=== PATIENT | male | born 1955 | race Caucasian/White ===

== ENCOUNTER → 2018-09-08 13:35 | Outpatient (CLI) | payer MEDICARE, SELFPAY ==
--- NOTE | 2018-09-08 13:46 | BI_ITS ---
MAMMOGRAPHY - BILATERAL DIAGNOSTIC REASON FOR EXAM: Male, [address] scan of the chest. PERTINENT HISTORY: Non-contributory. TECHNIQUE: Digital bilateral breast mat (3D mammographic acquisition) in the CC and MLO projections. 2-D mediolateral oblique (MLO) and craniocaudad (CC) views of both breasts were obtained. CAD: Full Field Digital Mammography with Computer Added Detection was performed. COMPARISON: None. Baseline examination. FINDINGS: Breast Composition: The breasts are almost entirely fatty. There are no dominant masses or suspicious calcifications. There is a 1.4 cm x 1.2 cm lymph node in the axillary region of the right breast. Correlation with ultrasound is recommended. No other significant abnormalities are identified. BI/DIAG MAMM W/CAD, BILAT IMPRESSION: 1.4 cm x 1.2 cm right axillary lymph node. Correlation with the findings on the recent CT scan of the chest and follow-up ultrasound is recommended. ASSESSMENT CATEGORY: BIRADS Category 0: Incomplete. Need additional imaging evaluation. A letter regarding these results will be sent to the patient by the facility within 30 days. Approximately 10% of breast cancers are not detected by mammography. A normal mammogram should not delay biopsy of a clinically suspicious abnormality. Electronically Signed: Edil Rosenthal, at 15:11 EDT , Service support ,
== END ==
DX: R92.8 Other abnormal and inconclusive findings on diagnostic imaging of breast (principal)
CPT/HCPCS: 77062; 77066; G0279

== ENCOUNTER → 2018-09-24 12:22 | Outpatient (CLI) | payer MEDICARE, OTHER, SELFPAY ==
--- NOTE | 2018-09-24 12:27 | US_ITS ---
STUDY: ULTRASOUND BREAST - RIGHT REASON FOR EXAM: Male, 63 years old. Abnormal mammogram TECHNIQUE: Axial and longitudinal images of the RIGHT breast were performed with a high resolution ultrasound transducer. COMPARISON: Mammogram from 09/08/2018 FINDINGS: RIGHT Breast: Ultrasound shows a right axillary hypoechoic well-defined nodule measuring 2.9 x 1.3 x 0.8 cm. There is no evidence of vascularity or shadowing. Findings are suggestive of a lymph node which is consistent with findings on mammogram. No sonographic evidence of architectural distortion or suspicious solid lesion. US/Breast Limited Unilateral IMPRESSION: Well-defined 2.9 x 1.3 x 0.8 cm likely right axillary lymph node ASSESSMENT CATEGORY: BIRADS Category 2: Benign. A letter regarding these results will be sent to the patient by the facility within 30 days. Electronically Signed: Carlos Lincoln MD at 13:18 EDT , Service support ,
== END ==
DX: R92.8 Other abnormal and inconclusive findings on diagnostic imaging of breast (principal)
CPT/HCPCS: 76642

== ENCOUNTER 2020-11-12 21:07 | Inpatient (IN) | payer OTHER, MEDICARE, SELFPAY ==
[2020-11-12 21:08] VITALS: BP 148/84; PULSE 94; RESP 24; TEMP 36.8; O2SAT 92; BMI 41.8
[2020-11-12 22:08] VITALS: RESP 22; O2SAT 88; O2SAT 89
[2020-11-12 22:11] VITALS: RESP 20; O2SAT 92
--- NOTE | 2020-11-12 22:20 | EKG12_ITS ---
Test Reason : SOB Blood Pressure : / mmHG Vent. Rate : 072 BPM Atrial Rate : 072 BPM P-R Int : 200 ms QRS Dur : 098 ms QT Int : 372 ms P-R-T Axes : 053 -54 092 degrees QTc Int : 407 ms Normal sinus rhythm Left anterior fascicular block Left ventricular hypertrophy with repolarization abnormality Inferior infarct , age undetermined Anteroseptal infarct , age undetermined Abnormal ECG Confirmed by TIO GAMBOA, BRETT ([id number]), photography editor JADE BARRIENTOS ([id number]) on 11/15/2020 9:56:47 AM Referred By: JAJA Confirmed By:BRETT KINSEY MD
[2020-11-12] MEDS: predniSONE 20 MG Tablet 60 MG PO (22:27)
[2020-11-12] MEDS: Albuterol 2.5 MG/3 ML VIAL.NEB. INHALATION ×3 (22:37→22:38)
[2020-11-12] MEDS: Ipratropium/Albuterol Sulfate 3 ML AMPUL.NEB INHALATION (22:37)
[2020-11-12 22:39] VITALS: PULSE 73; RESP 18
[2020-11-12 22:43] LABS: Absolute Lymphocyte Count 2.51 X10^3/uL (0.83-4.51); Absolute Neutrophil Count 10.4 X10^3/uL (2.0-7.7); Basophil% 0.7 % (0-1); Eosinophil# 0.46 X10^3/uL; Eosinophils% 3.1 % (0-5); Hematocrit 48.6 % (40-54); Hemoglobin 16.5 g/dL (13.0-16.5); Lymphocyte # 2.51 X10^3/ul (0.83-4.51); Lymphocyte % 16.8 % (19-41); Mean Corpuscular Hgb 29.7 pg (27.0-32.0); Mean Corpuscular Volume 87.4 fL (80-94); Mean Platelet Vol. 10.5 fl (6.2-12.0); Monocyte# 1.36 X10^3/uL; Monocyte% 9.1 % (0-10); NRBC Flagged by Analyzer 0 % (0-5); Neutrophil # 10.43 X10^3/uL (2.7-7.7); Platelet Count 210 K/mm3 (150-450); RBC Distribution Width CV 13.7 % (11.6-14.6); Red Blood Count 5.56 M/mm3 (4.6-6.2); White Blood Count 14.9 K/mm3 (4.4-11.0)
[2020-11-12 23:03] LABS: Anion Gap 9 (5-15); BUN 25 mg/dL (7-18); BUN/Creat Ratio 20.8 RATIO (10-20); Calcium,Total 9.7 mg/dL (8.5-10.1); Chloride 100 mmol/L (98-107); EST Glomerular Filtration Rate 65 mL/min (>60); Est Glom Filt Rate - Afr Amer 79 mL/min (>60); Estimated Creatinine Clearance 67.11 ml/min; Glucose 155 mg/dL (74-106); Potassium 3.9 mmol/L (3.5-5.1); Sodium Level 138 mmol/L (136-145)
--- NOTE | 2020-11-12 23:12 | RAD_ITS ---
STUDY: X-RAY CHEST REASON FOR EXAM: Male, 65 years old. Shortness of breath. TECHNIQUE: PA and lateral views of the chest. COMPARISON: 06/16/2016. FINDINGS: The lungs are well expanded. There is no new infiltrate or mass. There is no demonstrated pleural abnormality. Sternal cerclage wires are present from a prior sternotomy. Heart is normal in size. Normal mediastinum. Mild hilar prominence. Normal visualized aortic arch and descending thoracic aorta. Mild degenerative changes of the thoracic spine. Normal visualized ribs, clavicles, and shoulders. There is no demonstrated abnormality of the visualized soft tissue structures of the upper abdomen. RAD/Chest PA and Lateral IMPRESSION: No acute cardiopulmonary disease or interval change. Electronically Signed: Brett Field DO at 23:23 EDT Tel [phone], Service support ,
[2020-11-13] VITALS (15 sets, daily range): BP systolic 114–161; BP diastolic 75–99; PULSE 61–93; RESP 18–23; TEMP 36.6–37.3; O2SAT 92–95; BMI 43.7
--- NOTE | 2020-11-13 00:02 | EDS_ITS ---
HPI History of Present Illness Chief Complaint: Shortness of Breath Narrative Narrative: Patient presenting for evaluation secondary to shortness of breath. Patient has an underlying history of COPD. Patient states that over the course the last 3 to 4 days he has been having worsening dyspnea but specifically today it became significantly worse.'s been associated with wheezing and a mild cough. He does describe some chest tightness associated with it. No fevers. No real productivity to the patient's cough. Review of systems otherwise negative. [facility] Medical History Asthma COPD (chronic obstructive pulmonary disease) Coronary artery disease CPAP (continuous positive airway pressure) dependence Diabetes History of colitis Hypertension Myocardial infarct Sleep apnea Home Medications albuterol sulfate [Proair Hfa (SP)Vent Pts] 1 puff INHALATION BID PRN 10/28/14 [History Last Taken Unknown] atorvastatin 80 mg PO QHS 10/28/14 [History Last Taken 11/12/20] clopidogrel 75 mg PO DAILY 10/28/14 [History Last Taken 11/12/20] insulin glargine [Lantus (BKC)] 60 units SUBCUT BID 10/28/14 [History Last Taken 11/12/20] lisinopril 40 mg PO DAILY 10/28/14 [History Last Taken 11/12/20] metformin 1,000 mg PO BIDCM 10/28/14 [History Last Taken 11/12/20] tiotropium bromide [Spiriva 18 MCG] 1 puff INHALATION DAILY 10/28/14 [History Last Taken 11/12/20] aspirin 81 mg PO DAILY 11/12/20 [History Last Taken 11/12/20] budesonide-formoterol [Symbicort] 2 puff INHALATION BID 11/12/20 [History Last T aken 11/12/20] carvedilol 6.25 mg PO BID 11/12/20 [History Last Taken 11/12/20] chlorthalidone 12.5 mg PO DAILY 11/12/20 [History Last Taken 11/12/20] cholecalciferol (vitamin D3) [Vitamin D3] 50 mcg PO DAILY 11/12/20 [History Last Taken 11/12/20] gabapentin 300 mg PO BID 11/12/20 [History Last Taken 11/12/20] liraglutide 18 mg SUBCUT DAILY 11/12/20 [History Last Taken 11/12/20] Allergy/AdvReac Type Severity Reaction Status Date / Time No Known Allergies Allergy Verified 11/12/20 21:11 Surgical History History of colostomy History of colostomy reversal Hx of CABG Social History Smoking Status: Former smoker ROS ROS ED Constitutional Constitutional ED: Denies chills or fever(s) ENT ENT ED: Denies rhinorrhea Cardiovascular Cardiovascular: Denies chest pain Respiratory/Chest Respiratory/Chest: Reports cough and dyspnea Gastrointestinal Gastrointestinal: Denies abdominal pain, diarrhea, nausea or vomiting Genitourinary Genitourinary ED: Denies dysuria or hematuria Musculoskeletal Musculoskeletal: Denies back pain Integumentary Denies rash Neurologic Neurologic: Denies paresthesias or weakness Psychiatric Psychiatric: Denies depression Endocrine Endocrinology: Denies fatigue Allergic/Immunologic Allergic/Immunologic ED: Denies urticaria EXAM Physical Exam Const Vital Signs: 11/12/20 21:08 11/12/20 22:08 11/12/20 22:11 Temperature 98.2 F Temperature Source Temporal Pulse Rate 94 Respiratory Rate 24 H 22 H 20 H Respiratory Effort Short of Breath Respiratory Pattern Tachypnea Blood Pressure 148/84 H Blood Pressure Mean 105 Pulse Ox 92 88 92 Oxygen Delivery Method Room Air Room Air Nasal Cannula Oxygen Flow Rate (L/min) 2 11/12/20 22:39 11/13/20 00:00 Temperature 98.7 F Temperature Source Oral Pulse Rate 73 93 Respiratory Rate 18 23 H Respiratory Effort Respiratory Pattern Tachypnea Blood Pressure 114/91 H Blood Pressure Mean 98 Pulse Ox 95 Oxygen Delivery Method Nasal Cannula Oxygen Flow Rate (L/min) 2 Positive well nourished, well developed and obese Constitutional Narrative: Mildly dyspneic but not in acute distress General Appearance ED: well developed and NAD Nutritional Appearance: obese HEENT Reports moist mucous membranes Negative for trauma or tenderness Eyes EOMs intact bilaterally Neck no lymphadenopathy, supple and no JVD Chest Wall inspection of chest normal Resp normal respiratory effort Resp Narrative: Slightly prolonged expiratory phase, no evidence of retractions Auscultation: wheezes Cardio regular rate, regular rhythm, no murmurs and peripheral pulses 2+ throughout GI normal to inspection, nondistended, normoactive bowel sounds, non-tender and no masses Palpation: soft Back/Spine normal to inspection Extremity normal to inspection General Extremety ED: Negative for tenderness Neuro oriented x3 and no sensory deficits noted Sensorium / Orientation: alert Motor Exam: strength 5/5 throughout Psych mental status grossly normal Skin no rashes or lesions noted MDM MDM MDM Narrative Medical decision making narrative: Patient presented secondary to shortness of breath. He was given prednisone and breathing treatments in the emergency department. Chest x-ray by my personal review was negative. Patient has a leukocytosis of 15,000, negative troponin. Patient did have some modest improvement with breathing treatments but has hypoxia on room air and is not typically on supplemental oxygen. I believe that the patient requires admission at this point. Patient will be admitted under the hospitalist. Lab Data Labs: Laboratory Results - last 24 hr 11/12/20 11/12/20 22:32 22:32 WBC 14.9 H RBC 5.56 Hgb 16.5 Hct 48.6 MCV 87.4 MCH 29.7 MCHC 34.0 RDW Std Deviation 44.0 H RDW Coeff of Cornelio 13.7 Plt Count 210 MPV 10.5 Immature Gran % (Auto) 0.300 Neut % (Auto) 70.0 Lymph % (Auto) 16.8 L [place] % (Auto) 9.1 Eos % (Auto) 3.1 Baso % (Auto) 0.7 Absolute Neuts (auto) 10.4 H Absolute Lymphs (auto) 2.51 Nucleated RBC % 0 Sodium 138 Potassium 3.9 Chloride 100 Carbon Dioxide 29.0 Anion Gap 9 BUN 25 H Creatinine 1.20 Estim Creat Clear Calc 67.11 Est GFR (MDRD) Af Amer 79 Est GFR (MDRD) Non-Af 65 BUN/Creatinine Ratio 20.8 H Glucose 155 H Calcium 9.7 Troponin I < 0.015 Radiography Chest X-Ray - ED: Read by ED Physician and No Infiltrates Diagnostic Testing: Radiology Impression Chest X-Ray 11/12/20 23:12 IMPRESSION: No acute cardiopulmonary disease or interval change. Electronically Signed: Brett Field DO at 23:23 EDT Tel [phone], Service support , EKG Initial EKG: Attestation: I personally reviewed and interpreted this EKG as follows: (Sinus rhythm 72 with mild first-degree AV block MO interval is 200, anterior Q waves are noted, LVH is noted, inferior Q waves are also noted no evidence of ST elevations.) Discharge Plan Dx/Rx/DC Orders Clinical Impression: COPD exacerbation, Hypoxia Disposition Disposition: Acute Care Hospital [facility] Discharge Date/Time: 11/13/20 00:30
--- NOTE | 2020-11-13 00:17 | HP.PCM_ITS ---
Documented by User: CHALO Combs 11/13/20 00:28 HPI - General HPI Narrative KINGS CEBALLOS, is a 65 M who presents with increasing shortness of breath over the past 12 hours. Patient states that he noticed this morning that he was short of breath and it has only worsened throughout the day. Patient states that he has quit smoking cigarettes but continues to smoke marijuana daily. Patient typically does not use supplemental oxygen however patient needs 2L O2 per nasal cannula to maintain oxygen saturations above 90%. Walking pulse ox in ER was between 80 and 90% on room air. Patient also denies using his BiPAP at home as prescribed due to being uncomfortable wearing the mask while sleeping. [facility] Medical History Asthma COPD (chronic obstructive pulmonary disease) Coronary artery disease CPAP (continuous positive airway pressure) dependence Diabetes History of colitis Hypertension Myocardial infarct Sleep apnea Home Medications albuterol sulfate [Proair Hfa (SP)Vent Pts] 1 puff INHALATION BID PRN 10/28/14 [History Last Taken Unknown] albuterol sulfate [Proventil Hfa] 6.7 g IH DAILY 10/28/14 [History Last Taken Unknown] atorvastatin 80 mg PO QHS 10/28/14 [History Last Taken Unknown] clopidogrel 75 mg PO DAILY 10/28/14 [History Last Taken Unknown] insulin glargine [Lantus (BKC)] 60 units SUBCUT BID 10/28/14 [History Last Taken Unknown] lisinopril 40 mg PO DAILY 10/28/14 [History Last Taken Unknown] metformin 1,000 mg PO BIDCM 10/28/14 [History Last Taken Unknown] tiotropium bromide [Spiriva 18 MCG] 1 puff INHALATION DAILY 10/28/14 [History Last Taken Unknown] aspirin 81 mg PO DAILY 11/12/20 [History Last Taken Unknown] budesonide-formoterol [Symbicort] 2 puff INHALATION BID 11/12/20 [History Last Taken Unknown] carvedilol 6.25 mg PO BID 11/12/20 [History Last Taken Unknown] chlorthalidone 12.5 mg PO DAILY 11/12/20 [History Last Taken Unknown] cholecalciferol (vitamin D3) [Vitamin D3] 50 mcg PO DAILY 11/12/20 [History Last Taken Unknown] gabapentin 300 mg PO BID 11/12/20 [History Last Taken Unknown] liraglutide 18 mg SUBCUT DAILY 11/12/20 [History Last Taken Unknown] Allergy/AdvReac Type Severity Reaction Status Date / Time No Known Allergies Allergy Verified 11/12/20 21:11 Surgical History History of colostomy History of colostomy reversal Hx of CABG Social History Smoking Status: Former smoker ROS Constitutional Constitutional: Denies anorexia, chills, fatigue, fever(s) or weakness Cardiovascular Cardiovascular: Denies chest pain, edema or palpitations Respiratory/Chest Respiratory/Chest: Reports shortness of breath at rest, shortness of breath with exertion, tachypnea and wheezing; Denies cough Gastrointestinal Gastrointestinal: Denies abdominal pain, constipation, diarrhea, nausea or vom iting Genitourinary Genitourinary: Denies dysuria Musculoskeletal Musculoskeletal: Denies back pain, extremity pain, joint pain or joint stiffness Integumentary Integumentary: Denies dry skin Neurologic Neurologic: Denies abnormal gait, abnormal speech, confusion or dizziness Psychiatric Psychiatric: Denies anxiety or depression Endocrine Endocrinology: Denies change in body appearance Hematologic/Lymphatic Hematologic/Lymphatic: Denies easy bleeding or easy bruising Vital Signs Vital Signs Vital Signs: 11/12/20 21:08 11/12/20 22:08 11/12/20 22:11 Temperature 98.2 F Temperature Source Temporal Pulse Rate 94 Respiratory Rate 24 H 22 H 20 H Respiratory Effort Short of Breath Respiratory Pattern Tachypnea Blood Pressure 148/84 H Blood Pressure Mean 105 Pulse Ox 92 88 92 Oxygen Delivery Method Room Air Room Air Nasal Cannula Oxygen Flow Rate (L/min) 2 11/12/20 22:39 11/13/20 00:00 Temperature 98.7 F Temperature Source Oral Pulse Rate 73 93 Respiratory Rate 18 23 H Respiratory Effort Respiratory Pattern Tachypnea Blood Pressure 114/91 H Blood Pressure Mean 98 Pulse Ox 95 Oxygen Delivery Method Nasal Cannula Oxygen Flow Rate (L/min) 2 Weight Weight: 300 lb Body Mass Index (BMI) 41.8 Physical Exam Const alert and oriented x3 General Appearance: cooperative HEENT normocephalic and head/scalp atraumatic Eyes PERRL Neck supple, no JVD and thyroid normal General: trachea midline Lymph Lymphatic: no lymphadenopathy noted Resp Effort and Inspection: able to speak in complete sentences and tachypneic Auscultation: wheezes scattered wheezes and throughout Cardio regular rate, regular rhythm, S1 normal heart sound and S2 normal heart sound GI normal to inspection, nondistended, normoactive bowel sounds, soft to palpation and non-tender Extremity normal capillary refill and no clubbing, cyanosis or edema Skin General Skin Exam: no breakdown and turgor normal Lesions: no lesions Rashes: no rashes Neuro CN's II-XII intact bilaterally Psych thought process normal, cooperative and affect normal Appearance: appropriate Results Lab / Micro Data Result Diagrams: 11/12/20 22:32 11/12/20 22:32 Labs: Laboratory Results - last 24 hr 11/12/20 11/12/20 22:32 22:32 WBC 14.9 H RBC 5.56 Hgb 16.5 Hct 48.6 MCV 87.4 MCH 29.7 MCHC 34.0 RDW Std Deviation 44.0 H RDW Coeff of Cornelio 13.7 Plt Count 210 MPV 10.5 Immature Gran % (Auto) 0.300 Neut % (Auto) 70.0 Lymph % (Auto) 16.8 L [place] % (Auto) 9.1 Eos % (Auto) 3.1 Baso % (Auto) 0.7 Absolute Neuts (auto) 10.4 H Absolute Lymphs (auto) 2.51 Nucleated RBC % 0 Sodium 138 Potassium 3.9 Chloride 100 Carbon Dioxide 29.0 Anion Gap 9 BUN 25 H Creatinine 1.20 Estim Creat Clear Calc 67.11 Est GFR (MDRD) Af Amer 79 Est GFR (MDRD) Non-Af 65 BUN/Creatinine Ratio 20.8 H Glucose 155 H Calcium 9.7 Troponin I < 0.015 Radiology Impression Chest X-Ray 11/12/20 23:12 IMPRESSION: No acute cardiopulmonary disease or interval change. Electronically Signed: Brett Field DO at 23:23 EDT Tel [phone], Service support , Assessment & Plan Assessment/Plan (1) COPD exacerbation: PLAN: 1. COPD exacerbation -Admit to [facility] with telemetry -PT and OT to eval and treat -Solu-Medrol every 8 hour IV, patient received p.o. prednisone in ER -Scheduled DuoNeb nebulizer treatments ordered along with as needed albuterol, patient received DuoNeb x1 and albuterol x1 in ER -Encourage incentive spirometry -Vital signs per protocol -Mucinex 1200 mg twice daily ordered -BiPAP ordered, patient denies use at home due to discomfort, education provided and encouraged use of BiPAP 2. Hypertension -Vital signs per protocol, trend BP and heart rate -Continue lisinopril, carvedilol, chlorthalidone. 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 Hyperlipidemia Continue atorvastatin 5. Marijuana use -Encourage patient to stop smoking marijuana as this can contribute to COPD exacerbations DVT prophylaxis-subcu Lovenox This patient was seen by KATIE CombsC under the supervision of Dr. Galloway. Documented by User: Dr. Shakir Galloway MD 11/13/20 00:31 HPI - General General Date of Admission: 11/13/20 [facility] Medical History Asthma COPD (chronic obstructive pulmonary disease) Coronary artery disease CPAP (continuous positive airway pressure) dependence Diabetes History of colitis Hypertension Myocardial infarct Sleep apnea Home Medications albuterol sulfate [Proair Hfa (SP)Vent Pts] 1 puff INHALATION BID PRN 10/28/14 [History Last Taken Unknown] albuterol sulfate [Proventil Hfa] 6.7 g IH DAILY 10/28/14 [History Last Taken Unknown] atorvastatin 80 mg PO QHS 10/28/14 [History Last Taken Unknown] clopidogrel 75 mg PO DAILY 10/28/14 [History Last Taken Unknown] insulin glargine [Lantus (BKC)] 60 units SUBCUT BID 10/28/14 [History Last Taken Unknown] lisinopril 40 mg PO DAILY 10/28/14 [History Last Taken Unknown] metformin 1,000 mg PO BIDCM 10/28/14 [History Last Taken Unknown] tiotropium bromide [Spiriva 18 MCG] 1 puff INHALATION DAILY 10/28/14 [History Last Taken Unknown] aspirin 81 mg PO DAILY 11/12/20 [History Last Taken Unknown] budesonide-formoterol [Symbicort] 2 puff INHALATION BID 11/12/20 [History Last Taken Unknown] carvedilol 6.25 mg PO BID 11/12/20 [History Last Taken Unknown] chlorthalidone 12.5 mg PO DAILY 11/12/20 [History Last Taken Unknown] cholecalciferol (vitamin D3) [Vitamin D3] 50 mcg PO DAILY 11/12/20 [History Last Taken Unknown] gabapentin 300 mg PO BID 11/12/20 [History Last Taken Unknown] liraglutide 18 mg SUBCUT DAILY 11/12/20 [History Last Taken Unknown] Allergy/AdvReac Type Severity Reaction Status Date / Time No Known Allergies Allergy Verified 11/12/20 21:11 Surgical History History of colostomy History of colostomy reversal Hx of CABG Social History Smoking Status: Former smoker Results Lab / Micro Data Result Diagrams: 11/12/20 22:32 11/12/20 22:32 Charges/Coding Addendum Addendum: I independently evaluated this patient and agree with above assessment and plan.
[2020-11-13] MEDS: Acetaminophen 325 MG Tablet 650 MG PO (01:31)
[2020-11-13] MEDS: Ipratropium/Albuterol Sulfate 3 ML AMPUL.NEB INHALATION ×3 (02:42→11:16)
[2020-11-13 02:51] LABS: Bedside Glucose 134 mg/dL (70-110)
--- NOTE | 2020-11-13 03:33 | CPS ---
Pt refuses PAP at this time
[2020-11-13] MEDS: 0.9% Saline Lock 10 ML Syringe IV ×2 (06:36→14:46)
[2020-11-13] MEDS: Insulin Lispro 100 UNIT/ML INSULN.PEN SC ×2 (06:42→12:38)
[2020-11-13 06:46] LABS: Bedside Glucose 241 mg/dL (70-110)
[2020-11-13 06:58] LABS: Absolute Neutrophil Count 11.5 X10^3/uL (2.0-7.7); Basophil# 0.05 X10^3/uL; Basophil% 0.4 % (0-1); Eosinophil# 0.01 X10^3/uL; Eosinophils% 0.1 % (0-5); Hematocrit 47.6 % (40-54); Lymphocyte % 13.7 % (19-41); Mean Corp Hgb Conc 33.6 g/dL (32-36); Mean Corpuscular Volume 89.3 fL (80-94); Monocyte# 0.27 X10^3/uL; NRBC Flagged by Analyzer 0 % (0-5); Neutrophil # 11.52 X10^3/uL (2.7-7.7); Neutrophil % 83.2 % (47-70); Platelet Count 182 K/mm3 (150-450); RBC Distribution Width CV 13.5 % (11.6-14.6); RBC Distribution Width SD 44.1 fl (35.1-43.9); Red Blood Count 5.33 M/mm3 (4.6-6.2); White Blood Count 13.8 K/mm3 (4.4-11.0)
--- NOTE | 2020-11-13 07:01 | PN.HOSP_ITS ---
Subjective Subjective Patient seen and examined. He was admitted in the early hours of this morning for shortness of breath and is been managed for acute COPD exacerbation. He is feeling much better this morning and has no complaints. Review of systems otherwise negative. Objective Data Objective Data Vital Signs: Vital Signs Temp Pulse Resp BP Pulse Ox 98.4 F 61 19 H 161/82 H 94 11/13/20 06:32 11/13/20 06:32 11/13/20 06:32 11/13/20 06:32 11/13/20 06:32 Oxygen Flow Rate (L/min) 2 Oxygen Delivery Method Nasal Cannula Weight: 313 lb 4.43 oz Body Mass Index (BMI) 43.7 Intake & Output: Intake and Output for Last 24 Hours 11/11/20 11/12/20 11/13/20 23:59 23:59 23:59 Intake Total 350 / 350 Balance 350 / 350 Lab / Micro Data Result Diagrams: 11/13/20 06:25 11/12/20 22:32 Labs: Laboratory Results - last 24 hr 11/12/20 11/12/20 11/13/20 22:32 22:32 01:36 WBC 14.9 H RBC 5.56 Hgb 16.5 Hct 48.6 MCV 87.4 MCH 29.7 MCHC 34.0 RDW Std Deviation 44.0 H RDW Coeff of Cornelio 13.7 Plt Count 210 MPV 10.5 Immature Gran % (Auto) 0.300 Neut % (Auto) 70.0 Lymph % (Auto) 16.8 L [place] % (Auto) 9.1 Eos % (Auto) 3.1 Baso % (Auto) 0.7 Absolute Neuts (auto) 10.4 H Absolute Lymphs (auto) 2.51 Nucleated RBC % 0 Sodium 138 Potassium 3.9 Chloride 100 Carbon Dioxide 29.0 Anion Gap 9 BUN 25 H Creatinine 1.20 Estim Creat Clear Calc 67.11 Est GFR (MDRD) Af Amer 79 Est GFR (MDRD) Non-Af 65 BUN/Creatinine Ratio 20.8 H Glucose 155 H Calcium 9.7 Troponin I < 0.015 POC Glucose 134 H 11/13/20 11/13/20 06:25 06:35 WBC 13.8 H RBC 5.33 Hgb 16.0 Hct 47.6 MCV 89.3 MCH 30.0 MCHC 33.6 RDW Std Deviation 44.1 H RDW Coeff of Cornelio 13.5 Plt Count 182 MPV 11.0 Immature Gran % (Auto) 0.600 Neut % (Auto) 83.2 H Lymph % (Auto) 13.7 L [place] % (Auto) 2.0 Eos % (Auto) 0.1 Baso % (Auto) 0.4 Absolute Neuts (auto) 11.5 H Absolute Lymphs (auto) 1.90 Nucleated RBC % 0 Sodium Potassium Chloride Carbon Dioxide Anion Gap BUN Creatinine Estim Creat Clear Calc Est GFR (MDRD) Af Amer Est GFR (MDRD) Non-Af BUN/Creatinine Ratio Glucose Calcium Troponin I POC Glucose 241 H Radiography Diagnostic Testing: Radiology Impression Chest X-Ray 11/12/20 23:12 IMPRESSION: No acute cardiopulmonary disease or interval change. Electronically Signed: Brett Field DO at 23:23 EDT Tel [phone], Service support , Physical Exam Const alert, oriented x3 and no apparent distress Exam Limitations: no limitations HEENT head/scalp atraumatic and moist oral mucous membranes Head and Scalp: normocephalic Eyes PERRL, EOMs intact bilaterally and conjunctivae normal Neck no lymphadenopathy, supple and no JVD Resp Resp Narrative: diminished breath sounds bibasally, no wheezes or crackles. on 2L of oxygen by nasal canula Cardio regular rate, regular rhythm, S1 normal heart sound, S2 normal heart sound and no murmurs GI normal to inspection, nondistended, normoactive bowel sounds, soft to palpation, non-tender and non-distended Extremity normal to inspection, full ROM and no clubbing, cyanosis or edema Peripheral Pulses: Yes pulses 2+ throughout Neuro oriented x3 Sensorium / Orientation: awake and alert Psych affect normal Assessment & Plan Assessment/Plan (1) Hypoxia: (2) COPD exacerbation: PLAN: #Acute COPD exacerbation * on IV solumedrol [id number] * breathing treatments with bronchodilators. * mucinex 1200mg bid * BIPAP prn * #Hypertension: on lisinopril, carvedilol and chlorthalidone. #Diabetes mellitus with neuropathy * metformin and lantus sq * hold Januvia. ISS. Accuchecks ACHS * #Hyperlipidemia: on atorvastatin #Marijuana: counseled to quit. DVT prophylaxis: lovenox Charges/Coding Visit Charges Inpatient E&M: 30657 Subs Hosp L2
[2020-11-13 07:22] LABS: Anion Gap 7 (5-15); BUN 23 mg/dL (7-18); BUN/Creat Ratio 21.1 RATIO (10-20); Chloride 100 mmol/L (98-107); Creatinine, Serum 1.09 mg/dL (0.70-1.30); EST Glomerular Filtration Rate 73 mL/min (>60); Est Glom Filt Rate - Afr Amer 88 mL/min (>60); Estimated Creatinine Clearance 73.88 ml/min; Glucose 234 mg/dL (74-106); Potassium 4.6 mmol/L (3.5-5.1); Sodium Level 133 mmol/L (136-145)
[2020-11-13] MEDS: Carvedilol 6.25 MG Tablet PO (08:23)
[2020-11-13] MEDS: Aspirin 81 MG TAB.CHEW PO (08:23)
[2020-11-13] MEDS: metFORMIN HCl 1,000 MG Tablet 1000 MG PO (08:23)
[2020-11-13] MEDS: guaiFENesin 1,200 MG Tablet 1200 MG PO (08:24)
[2020-11-13] MEDS: Enoxaparin 40 MG/0.4 ML Syringe SC (08:24)
[2020-11-13] MEDS: Gabapentin 300 MG Capsule PO (08:26)
[2020-11-13] MEDS: Cholecalciferol (VIT D3) 25 MCG TABLET (1,000 UNITS) 50 MCG PO (08:26)
[2020-11-13] MEDS: Lisinopril 40 MG Tablet PO (08:27)
[2020-11-13] MEDS: Clopidogrel Bisulfate 75 MG Tablet PO (08:30)
--- NOTE | 2020-11-13 10:50 | CASEMGMT ---
RN GOLDY Face to Face with patient for initial transition planning/care coordination assessment. RN CM introduced self and role at [facility]. Patient sitting in chair, alert and oriented, at bedside. Patient willing to participate in assessment and is able to answer all questions appropriately. Care providers, pharmacy, and demographics verified. Patient wishes to discharge home, denies need for home health at this time. Patient states he has no further needs or concerns at this time. CM to follow for discharge planning needs that may arise. PCP: Latosha Bernstein [place] Specialists: [place] Preferred Pharmacy: [place], [facility] Insurance: [employer] [facility] Prescription Benefit: yes Living Will/HPOA: none LNOK: Living Arrangements: Nava lives with in single story home with 1 step to enter. Patient is independent at home. Transportation: self/ DME/HHC: Patient states he cane, cpap, and nebulizer at home. Patient denies previous HHC or SNF. Disposition Plan: Patient to discharge home with family support and follow-up plans in place. Jennifer VERNON, RN, CM
[2020-11-13 11:10] LABS: Bedside Glucose 399 mg/dL (70-110)
--- NOTE | 2020-11-13 11:17 | PCM.DC.SUM ---
Providers Date of Admission: 11/13/20 Primary Care Physician: [facility] Reason For Visit: COPD EXACERBATION Diagnosis Discharge Diagnosis (1) Hypoxia: Status: Acute Code(s): R09.02 - Hypoxemia (2) COPD exacerbation: Status: Chronic Code(s): J44.1 - Chronic obstructive pulmonary disease with (acute) exacerbation Medications at Discharge Home Medications Lantus Solostar U-100 Insulin 60 units SUBCUT BID 10/28/14 Spiriva with HandiHaler 1 puff INHALATION DAILY 10/28/14 albuterol sulfate [ProAir HFA] 1 puff INHALATION BID PRN 10/28/14 atorvastatin 80 mg PO QHS 10/28/14 clopidogrel 75 mg PO DAILY 10/28/14 lisinopril 40 mg PO DAILY 10/28/14 metformin 1,000 mg PO BIDCM 10/28/14 aspirin 81 mg PO DAILY 11/12/20 budesonide-formoterol [Symbicort] 2 puff INHALATION BID 11/12/20 carvedilol 6.25 mg PO BID 11/12/20 chlorthalidone 12.5 mg PO DAILY 11/12/20 cholecalciferol (vitamin D3) [Vitamin D3] 50 mcg PO DAILY 11/12/20 gabapentin 300 mg PO BID 11/12/20 liraglutide 18 mg SUBCUT DAILY 11/12/20 levofloxacin 500 mg PO DAILY #5 tab 11/13/20 prednisone 40 mg PO DAILY #10 tab 11/13/20 Hospital Course Operations None Procedures None Summary of Care Provided Minutes Spent on Discharge: 35 Hospital Course: Patient is a 65-year-old male with a past medical history as outlined which includes COPD and asthma was admitted with a complaint of worsening shortness of breath for 12 hours prior to admission. He needed 2 L of oxygen to maintain saturation above 90%. He denied smoking cigarettes but admitted smoking marijuana. In the ED, his walking pulse ox was between 80 and 90% on room air. He had also not been using his BiPAP at home because he said he was uncomfortable. He was admitted and managed for acute COPD exacerbation. CBC showed elevated WBC of 14.9 but was otherwise unremarkable and chemistry was otherwise unremarkable. Chest x-ray showed no acute cardiopulmonary process. Patient was started on IV Solu-Medrol and breathing treatments as well as antibiotics. Patient subsequently felt much better. Patient was counseled that it would be advisable for him to stay at least 1 more night to get more treatment but patient insisted on being discharged because he said he was in the process of buying a house and did not want to lose the house because he was in hospital. Patient was therefore discharged home on 11/13/2020 on 40 mg of p.o. prednisone x5 days as well as p.o. Levaquin for 5 days. He is to follow-up with his primary care doctor and was also counseled to be compliant with his BiPAP at home. Patient seen and examined prior to discharge. He felt much better and had no complaints. Shortness of breath had resolved. Review signs otherwise negative. Labs and vitals reviewed. Home medication reviewed and reconciled. Physical Exam Const alert, oriented x3 and no apparent distress General Appearance: cooperative Exam Limitations: no limitations HEENT normocephalic, head/scalp atraumatic and moist oral mucous membranes Eyes PERRL, EOMs intact bilaterally and conjunctivae normal Neck no lymphadenopathy, supple, no JVD and thyroid normal General: trachea midline Lymph Lymphatic: no lymphadenopathy noted Resp normal respiratory effort, no retractions, no use of accessory muscles and clear to auscultation bilaterally Resp Narrative: on room air. Effort and Inspection: able to speak in complete sentences and tachypneic Cardio regular rate, regular rhythm, S1 normal heart sound, S2 normal heart sound and no murmurs GI normal to inspection, nondistended, normoactive bowel sounds, soft to palpation, non-tender and non-distended Extremity normal to inspection, full ROM, normal capillary refill and no clubbing, cyanosis or edema Skin no rashes or lesions noted and no wounds General Skin Exam: no breakdown and turgor normal Lesions: no lesions Rashes: no rashes Neuro oriented x3 and CN's II-XII intact bilaterally Sensorium / Orientation: awake and alert Psych thought process normal, cooperative and affect normal Appearance: appropriate Weight / BMI Weight Weight: 313 lb 4.43 oz Body Mass Index (BMI) 43.7 ABG / Lab / Microbiology Data Result Diagrams: 11/13/20 06:25 11/13/20 06:25 Laboratory: Laboratory Results - last 24 hr 11/12/20 11/12/20 11/13/20 22:32 22:32 01:36 WBC 14.9 H RBC 5.56 Hgb 16.5 Hct 48.6 MCV 87.4 MCH 29.7 MCHC 34.0 RDW Std Deviation 44.0 H RDW Coeff of Cornelio 13.7 Plt Count 210 MPV 10.5 Immature Gran % (Auto) 0.300 Neut % (Auto) 70.0 Lymph % (Auto) 16.8 L [place] % (Auto) 9.1 Eos % (Auto) 3.1 Baso % (Auto) 0.7 Absolute Neuts (auto) 10.4 H Absolute Lymphs (auto) 2.51 Nucleated RBC % 0 Sodium 138 Potassium 3.9 Chloride 100 Carbon Dioxide 29.0 Anion Gap 9 BUN 25 H Creatinine 1.20 Estim Creat Clear Calc 67.11 Est GFR (MDRD) Af Amer 79 Est GFR (MDRD) Non-Af 65 BUN/Creatinine Ratio 20.8 H Glucose 155 H Calcium 9.7 Troponin I < 0.015 POC Glucose 134 H 11/13/20 11/13/20 11/13/20 06:25 06:25 06:35 WBC 13.8 H RBC 5.33 Hgb 16.0 Hct 47.6 MCV 89.3 MCH 30.0 MCHC 33.6 RDW Std Deviation 44.1 H RDW Coeff of Cornelio 13.5 Plt Count 182 MPV 11.0 Immature Gran % (Auto) 0.600 Neut % (Auto) 83.2 H Lymph % (Auto) 13.7 L Searcy % (Auto) 2.0 Eos % (Auto) 0.1 Baso % (Auto) 0.4 Absolute Neuts (auto) 11.5 H Absolute Lymphs (auto) 1.90 Nucleated RBC % 0 Sodium 133 L Potassium 4.6 Chloride 100 Carbon Dioxide 26.0 Anion Gap 7 BUN 23 H Creatinine 1.09 Estim Creat Clear Calc 73.88 Est GFR (MDRD) Af Amer 88 Est GFR (MDRD) Non-Af 73 BUN/Creatinine Ratio 21.1 H Glucose 234 H Calcium 9.0 Troponin I POC Glucose 241 H 11/13/20 11:02 WBC RBC Hgb Hct MCV MCH MCHC RDW Std Deviation RDW Coeff of Cornelio Plt Count MPV Immature Gran % (Auto) Neut % (Auto) Lymph % (Auto) Searcy % (Auto) Eos % (Auto) Baso % (Auto) Absolute Neuts (auto) Absolute Lymphs (auto) Nucleated RBC % Sodium Potassium Chloride Carbon Dioxide Anion Gap BUN Creatinine Estim Creat Clear Calc Est GFR (MDRD) Af Amer Est GFR (MDRD) Non-Af BUN/Creatinine Ratio Glucose Calcium Troponin I POC Glucose 399 H Radiography Diagnostic Testing: Radiology Impression Chest X-Ray 11/12/20 23:12 IMPRESSION: No acute cardiopulmonary disease or interval change. Electronically Signed: Brett Field DO at 23:23 EDT Tel [phone], Service support , D/C Instructions Discharge Diet: 2000 mg Sodium Diet Discharge Activity: Return to Normal Activity Weight Bearing Status: Weight bearing as tolerated Call your doctor if you observe: Fever of 101 or Higher, Shortness of breath, Dizziness, Swelling in the ankles, Chest pain, Increased palpitations (irregular heartbeat) and Calf discomfort Meaningful Use Info Meaningful Use Diagnoses (Choose all that apply): None applicable Discharge Plan Admission Admit Date/Time: 11/13/20 00:16 Primary Reason for Your Visit: shortness of breath Attending Provider: Genoveva Ramsay Primary Care Provider: [facility],[place] Instructions Patient Instructions: COPD: Using Inhalers, Treatments for COPD, ED COPD Flare Discharge Orders/Prescriptions Prescriptions: New prednisone 20 mg tablet 40 mg PO DAILY Qty: 10 RF: 0 levofloxacin 500 mg tablet 500 mg PO DAILY Qty: 5 RF: 0 Continued atorvastatin 80 MG tablet 80 mg PO QHS RF: 0 clopidogrel 75 MG tablet 75 mg PO DAILY RF: 0 metformin 1,000 MG tablet 1,000 mg PO BIDCM RF: 0 lisinopril 5 MG tablet 40 mg PO DAILY RF: 0 albuterol sulfate [ProAir HFA] 1 PUFF inhaler 1 puff inhalation BID PRN (Reason: Sob &/Or Wheezing) RF: 0 Spiriva with HandiHaler 1 PUFF inhaler 1 puff inhalation DAILY RF: 0 Lantus Solostar U-100 Insulin 100 UNITS/ML insulin pen 60 units subcut BID RF: 0 carvedilol 6.25 mg Tablet 6.25 mg PO BID RF: 0 chlorthalidone 25 mg Tablet 12.5 mg PO DAILY RF: 0 aspirin 81 mg Tablet 81 mg PO DAILY RF: 0 gabapentin 300 mg Tablet 300 mg PO BID RF: 0 budesonide-formoterol [Symbicort] 80-4.5 mcg/actuation Hfa Aerosol Inhaler 2 puff INHALATION BID RF: 0 cholecalciferol (vitamin D3) [Vitamin D3] 50 mcg (2,000 unit) Capsule 50 mcg PO DAILY RF: 0 liraglutide 0.6 mg/0.1 mL (18 mg/3 mL) Pen Injector 18 mg SUBCUT DAILY RF: 0 Referrals [facility] - Within 1 Week Disposition Disposition (needs filled in before D/C Order can be placed): Home, self care
--- NOTE | 2020-11-13 11:32 | NURSING ---
pt hygroton dose still unavailable for pt administration
== END 2020-11-13 15:20 | disposition home or self-care (01) | DRG 191 ==
LOC: ED 23:56 → MS3 11-13 00:19
PROVIDERS: Nurse Practitioner Family; Admitting Provider Family Medicine; Emergency Provider Emergency Medicine; Visit Provider Student in an Organized Health Care Education/Training Program
DX: J44.1 Chronic obstructive pulmonary disease with (acute) exacerbation (principal); Z68.41 Body mass index [BMI] 40.0-44.9, adult; I25.10 Atherosclerotic heart disease of native coronary artery without angina pectoris; G47.30 Sleep apnea, unspecified; E11.40 Type 2 diabetes mellitus with diabetic neuropathy, unspecified; I25.2 Old myocardial infarction; I10 Essential (primary) hypertension; E66.01 Morbid (severe) obesity due to excess calories; E78.5 Hyperlipidemia, unspecified; Z79.02 Long term (current) use of antithrombotics/antiplatelets; Z79.51 Long term (current) use of inhaled steroids; Z79.82 Long term (current) use of aspirin; Z79.84 Long term (current) use of oral hypoglycemic drugs; Z79.899 Other long term (current) drug therapy; Z87.891 Personal history of nicotine dependence; Z95.1 Presence of aortocoronary bypass graft
CPT/HCPCS: 36415; 71046; 80048; 82962; 84484; 85025; 93005; 94640; 94760; 99251; 99285; A4216; G0463

== ENCOUNTER 2021-01-14 08:17 | Day surgery (SDC) | payer OTHER, MEDICARE, SELFPAY ==
[2020-12-27 08:23] VITALS: BMI 44.3
[2021-01-14] VITALS (8 sets, daily range): BP systolic 90–125; BP diastolic 43–72; PULSE 48–60; RESP 16; TEMP 35.7–36.2; O2SAT 93–96; BMI 44.1
[2021-01-14] MEDS: Lactated Ringers 1,000 ML 100 ML IV (09:04)
[2021-01-14 09:10] LABS: Bedside Glucose 80 mg/dL (70-110)
--- NOTE | 2021-01-14 09:23 | PCM.HP.BLA ---
History and Physical Date of Admission: 01/14/21 Intake Vital Signs 12/27/20 07:55 12/27/20 08:23 Height 5 ft 11 in Weight: 318 lb BMI 43.7 44.3 BP 173/84 H Blood Pressure Location Rt brachial Position Sitting Respiration 18 Intake Visit Reasons: VENTRAL HERNIA Chief Complaint: ventral hernia Heel Stiffener Required: No Is patient in pain?: No Allergies No Known Allergies Allergy (Verified 12/27/20 08:25) Medications Lantus Solostar U-100 Insulin 60 units SUBCUT BID 10/28/14 [History Confirmed 12/27/20] Spiriva with HandiHaler 1 puff INHALATION DAILY 10/28/14 [History Confirmed 12/27/20] albuterol sulfate [ProAir HFA] 1 puff INHALATION BID PRN 10/28/14 [History Confirmed 12/27/20] atorvastatin 80 mg PO QHS 10/28/14 [History Confirmed 12/27/20] clopidogrel 75 mg PO DAILY 10/28/14 [History Confirmed 12/27/20] lisinopril 40 mg PO DAILY 10/28/14 [History Confirmed 12/27/20] metformin 1,000 mg PO BIDCM 10/28/14 [History Confirmed 12/27/20] aspirin 81 mg PO DAILY 11/12/20 [History Confirmed 12/27/20] budesonide-formoterol [Symbicort] 2 puff INHALATION BID 11/12/20 [History Confirmed 12/27/20] carvedilol 6.25 mg PO BID 11/12/20 [History Confirmed 12/27/20] cholecalciferol (vitamin D3) [Vitamin D3] 50 mcg PO DAILY 11/12/20 [History Confirmed 12/27/20] gabapentin 300 mg PO BID 11/12/20 [History Confirmed 12/27/20] liraglutide 18 mg SUBCUT DAILY 11/12/20 [History Confirmed 12/27/20] prednisone 40 mg PO DAILY #10 tab 11/13/20 [Rx Confirmed 12/27/20] sildenafil 25 mg tablet 25 mg PO DAILY PRN 12/27/20 [History Confirmed 12/27/20] PFSH Medical History Asthma COPD (chronic obstructive pulmonary disease) Coronary artery disease CPAP (continuous positive airway pressure) dependence Diabetes History of colitis Hypertension Myocardial infarct Sleep apnea Surgical History History of colostomy History of colostomy reversal Hx of CABG Family History (Updated 12/27/20 @ 07:57 by Lashell Rendon) Mother Diabetes Social History (Updated 12/27/20 @ 07:57 by Lashell Rendon) Smoking Status: Former smoker alcohol intake: never HPI HPI HPI: KINGS CEBALLOS, is a 65 M who presents to the office today for several issues. The patient has a left lower quadrant hernia which has been bothering him. He also reports that he has a positive fecal occult blood test. Patient is not having any abdominal pain except for at the hernia site. The patient's last colonoscopy was over 10 years ago. Patient has yearly fecal occult blood test which are usually normal but his most recent was positive. Patient reports that his hernia has been present for several years. The patient had a previous colostomy and reversal and the hernia is at his colostomy site. ROS General General: Yes weight change; No appetite, fatigue, colon cancer, breast cancer or weakness HEENT HEENT: No difficulty swallowing, eye injury, eye surgery, swollen glands or hoarseness Endo Endocrine: Yes diabetes mellitus; No thyroid disease, thyroid cancer, Hair loss, heat intolerance or cold intolerance Skin Skin: No rash or changing moles Breast Breast: No left breast lump, right breast lump, nipple discharge, breast pain, abnormal mammogram, abnormal US or breast enlargement Musc Musculoskeletal: Yes back problems and arthritis; No rheumatoid arthritis, gout or joint pain Cardio Cardiovascular: Yes heart disease, high blood pressure, heart attack and heart stent; No murmur, pacemaker, atrial fibrillation, palpitations, shortness of breat with exertion or chest pain Psych Psychiatric: No depression, anxiety or hearing voices Resp Respiratory: Yes shortness of breath, Yes sleep apnea, No cough, Yes COPD, Yes asthma, No emphysema and No wheezing Gastro Gastrointestinal: Yes abdominal pain, No nausea or vomiting, No diarrhea, No constipation, Yes blood in stool, No acid reflux, No hemorrhoids, No ulcers, No gallbladder problem and No black,tarry stools Gabe Hematologic: Yes blood thinners, No blood disorders, No bleeding, No anemia and No blood clots Neuro Neurologic: No system reviewed and no additional complaints, except as documented, No as per HPI, No abnormal gait, No abnormal hearing, No abnormal movements, No abnormal speech, No behavioral changes, No burning sensations, No confusion, No convulsions, No disequilibrium, No dizziness, No localized weakness, No frequent falls, No headache(s), No lack of coordination, No loss of vision, No memory loss, No numbness, No other visual disturbances, No radicular pain, No restless legs, No sensory deficit, No syncope, No tingling, No tremor(s), No weakness and No other Exam Const General: cooperative Orientation: alert and oriented x3 HENMT Head: normal to inspection Neck Neck: normal visual inspection and full ROM Chest Chest palpation & inspection: normal inspection of the chest Resp Effort & Inspection: normal respiratory effort Auscultation: clear to auscultation bilaterally Cardio Rate: regular rate Rhythm: regular rhythm GI Inspection: non-distended Palpation: soft, hernia (Ventral incisional hernia in the left lower quadrant) ventral and nontender Skin General: no rashes or lesions noted Neuro General: patient alert and patient oriented x3 Extrem General: full ROM Psych Appearance: grossly normal Mental Status: mental status grossly normal Assessment and Plan Assessment and Plan (1) Positive fecal occult blood test: Status: Acute (2) Ventral incisional hernia: Status: Acute Orders: Orders: Colonoscopy Today R19.5 EGD Today R19.5 Plan - Dr. Florentin Flores MD: The patient has positive fecal occult blood test and I would recommend the patient have EGD and colonoscopy to evaluate this. I explained endoscopy in detail to the patient. I explained the risks including but not limited to stroke or heart attack with anesthesia, perforation of the GI tract, bleeding, infection. I explained that any of these could necessitate further emergency surgery. The patient understands and all questions were answered sufficiently. The patient wishes to proceed with procedure. Patient also has an incisional ventral hernia at his former colostomy site. I discussed hybrid approach with open reduction of fat and closure of the hernia with laparoscopic mesh placement. The patient does not want repair until June so I will schedule the patient for EGD and colonoscopy and see him back in May to discuss further the hernia repair. Florentin Flores MD Pager: [facility] [address] [place] [address], [address] [place] [address] Office: I have re-examined the patient. There are no clinical changes since date of exam.
--- NOTE | 2021-01-14 09:30 | EGD_PTH ---
PATIENT: KINGS CEBALLOS LOC: EN U#:[id number] AGE/SX: 65/M ROOM: RE01/14/[address]: Dr. Florentin Flores MD : 1955 BED: DIS: 01/14/2021 SPEC #: [id number] RECD: 01/14/21 10:23 STATUS: VERONICA EMMETT #: [id number] MONICA: 01/14/21 09:[address]: Florentin Flores DEPT: SURGICAL PATHOLOGY RECD BY: Ulices Muro ENTERED: 01/14/21 11:52 SP TYPE: EGD BIOPSY OTHR DR: [facility] Tissues: A - Descending colon B - Descending colon C - Cecum, NOS D - Ascending colon E - Transverse colon Procedures: Surgery Specimen Level IV HEADER OPERATION: Colonoscopy, EGD ([facility]) PRE-OP DIAGNOSIS: Positive fecal occult blood test TISSUE SUBMITTED: A ? Proximal descending colon polyp x2, B ? Distal descending colon polyp, C ? Cecum polyp, D ? Distal ascending colon polyp, E ? Transverse polyp MICROSCOPIC DIAGNOSIS A. Proximal descending colon polyp, biopsy: Fragments of tubular adenoma. B. Distal descending colon polyp, biopsy: Fragments of tubular adenoma. C. Cecal polyp, biopsy: Tubular adenoma. D. Distal ascending colon polyp, biopsy: Fragments of tubular adenoma. E. Transverse colon polyp, biopsy: Tubular adenoma. AM:preethi 01/15/2021 MICROSCOPIC DESCRIPTION Slides are reviewed. GROSS DESCRIPTION A - Received in fixative is one container labeled with the patient's name and designated proximal descending colon polyp. The specimen consists of multiple irregular fragments of light hernandez soft tissue that in aggregate measure 3 x 2 x 0.3 cm. The specimen is totally submitted in one cassette. B - Received in fixative is one container labeled with the patient's name and designated distal descending colon polyp. The specimen consists of multiple irregular fragments of light hernandez soft tissue that in aggregate measure 1 x 0.5 x 0.1 cm. The specimen is totally submitted in one cassette. C - Received in fixative is one container labeled with the patient's name and designated cecal polyp. The specimen consists of one irregular fragment of light hernandez soft tissue that measures 0.3 x 0.3 x 0.2 cm. The specimen is totally submitted in one cassette. D - Received in fixative is one container labeled with the patient's name and designated distal ascending colon polyp. The specimen consists of multiple irregular fragments of light hernandez soft tissue that in aggregate measure 0.8 x 0.5 x 0.1 cm. The specimen is totally submitted in one cassette. E - Received in fixative is one container labeled with the patient's name and designated transverse polyp. The specimen consists of one irregular fragment of light hernandez soft tissue that measures 0.6 x 0.6 x 0.3 cm. The specimen is totally submitted in one cassette. / AM:preethi 01/14/21 TC:5 CPT: 38900 x5
--- NOTE | 2021-01-14 10:02 | OP.EGD_ITS ---
Patient Name: Clifford Boone Procedure Date: 01/14/2021 9:28 AM Date of : 1955 Age: 65 Procedure: Upper GI endoscopy Indications: Occult blood in stool Providers: Florentin Flores MD Medicines: Monitored Anesthesia Care Patient Profile: This is a 65 year old male. Refer to note in patient chart for documentation of history and physical. Complications: No immediate complications. Procedure: Pre-Anesthesia Assessment: - Prior to the procedure, a History and Physical was performed, and patient medications and allergies were reviewed. The patient's tolerance of previous anesthesia was also reviewed. The risks and benefits of the procedure and the sedation options and risks were discussed with the patient. All questions were answered, and informed consent was obtained. Prior Anticoagulants: The patient has taken no previous anticoagulant or antiplatelet agents. After reviewing the risks and benefits, the patient was deemed in satisfactory condition to undergo the procedure. After obtaining informed consent, the endoscope was passed under direct vision. Throughout the procedure, the patient's blood pressure, pulse, and oxygen saturations were monitored continuously. The Endoscope was introduced through the mouth, and advanced to the third part of duodenum. The upper GI endoscopy was accomplished without difficulty. The patient tolerated the procedure well. Scope In: 9:36:05 AM Scope Out: 9:37:49 AM Total Procedure Duration Time 0 hours 1 minute 44 seconds Findings: The esophagus was normal. The stomach was normal. The examined duodenum was normal. Impression: - Normal esophagus. - Normal stomach. - Normal examined duodenum. - No specimens collected. Recommendation: - Discharge patient to home. - Resume previous diet. - Continue present medications. Procedure Code(s): --- Professional --- 73887, Esophagogastroduodenoscopy, flexible, transoral; diagnostic, including collection of specimen(s) by brushing or washing, when performed (separate procedure) Diagnosis Code(s): --- Professional --- R19.5, Other fecal abnormalities CPT copyright 2017 [employer]. All rights reserved. The codes documented in this report are preliminary and upon slide machine tender review may be revised to meet current compliance requirements. Florentin Flores MD 01/14/2021 10:02:40 AM This report has been signed electronically. Number of Addenda: 0 Note Initiated On: 01/14/2021 9:28 AM
--- NOTE | 2021-01-14 10:03 | OP.CCLET_ITS ---
01/14/2021 [facility] Re : Upper GI endoscopy procedure for [facility] This procedure was performed on Thursday, January 14, 2021. My impressions and recommendations are as follows: Impressions : - Normal esophagus. - Normal stomach. - Normal examined duodenum. - No specimens collected. Recommendations : - Discharge patient to home. - Resume previous diet. - Continue present medications. My findings are described in the full procedure note, which is enclosed. If I can be of further assistance, please feel free to contact me at Doctor phone number(s): , Work: . Sincerely, Florentin Flores MD 01/14/2021 10:02:40 AM This report has been signed electronically.
--- NOTE | 2021-01-14 10:06 | OP.CCLET_ITS ---
01/14/2021 [facility] Re : Colonoscopy procedure for [facility] This procedure was performed on Thursday, January 14, 2021. My impressions and recommendations are as follows: Impressions : - Six polyps in the descending colon, in the transverse colon, in the ascending colon and in the cecum, removed with a hot snare. Resected and retrieved. - The distal rectum and anal verge are normal on retroflexion view. Recommendations : - Discharge patient to home. - Resume previous diet. - Continue present medications. - Await pathology results. - Repeat colonoscopy in 1 year for surveillance due to multiple polyps and only adequate prep. My findings are described in the full procedure note, which is enclosed. If I can be of further assistance, please feel free to contact me at Doctor phone number(s): , Work: . Sincerely, Florentin Flores MD 01/14/2021 10:05:48 AM This report has been signed electronically.
--- NOTE | 2021-01-14 10:06 | OP.COLON_ITS ---
Patient Name: Clifford Boone Procedure Date: 01/14/2021 9:38 AM Date of : 1955 Age: 65 Procedure: Colonoscopy Indications: Heme positive stool Providers: Florentin Flores MD Medicines: Monitored Anesthesia Care Patient Profile: This is a 65 year old male. Refer to note in patient chart for documentation of history and physical. Last Colonoscopy: 3 years ago. Complications: No immediate complications. Estimated blood loss: Minimal. Procedure: Pre-Anesthesia Assessment: - Prior to the procedure, a History and Physical was performed, and patient medications and allergies were reviewed. The patient's tolerance of previous anesthesia was also reviewed. The risks and benefits of the procedure and the sedation options and risks were discussed with the patient. All questions were answered, and informed consent was obtained. Prior Anticoagulants: The patient has taken no previous anticoagulant or antiplatelet agents. After reviewing the risks and benefits, the patient was deemed in satisfactory condition to undergo the procedure. After I obtained informed consent, the scope was passed under direct vision. Throughout the procedure, the patient's blood pressure, pulse, and oxygen saturations were monitored continuously. The colonoscope was introduced through the anus and advanced to the cecum, identified by appendiceal orifice and ileocecal valve. The colonoscopy was performed without difficulty. The patient tolerated the procedure well. The quality of the bowel preparation was adequate to identify polyps 6 mm and larger in size. Not adequate to identify small polyps. Scope In: 9:40:01 AM Scope Withdrawal Time 0 hours 7 minutes 32 seconds Scope Out: 10:00:35 AM Total Procedure Duration Time 0 hours 20 minutes 34 seconds Findings: Six polyps were found in the descending colon, transverse colon, ascending colon and cecum. These polyps were removed with a hot snare. Resection and retrieval were complete. The retroflexed view of the distal rectum and anal verge was normal and showed no anal or rectal abnormalities. Impression: - Six polyps in the descending colon, in the transverse colon, in the ascending colon and in the cecum, removed with a hot snare. Resected and retrieved. - The distal rectum and anal verge are normal on retroflexion view. Recommendation: - Discharge patient to home. - Resume previous diet. - Continue present medications. - Await pathology results. - Repeat colonoscopy in 1 year for surveillance due to multiple polyps and only adequate prep. Florentin Flores MD 01/14/2021 10:05:48 AM This report has been signed electronically. Number of Addenda: 0 Note Initiated On: 01/14/2021 9:38 AM
== END 2021-01-14 11:26 ==
LOC: EN 08:17 → AC 08:19
PROVIDERS: Visit Provider Surgery
PROC: 0DJD8ZZ Inspection of Lower Intestinal Tract, Via Natural or Artificial Opening Endoscopic (ICD-10-PCS; CPT 45378; principal; 2021-01-14 09:25)
DX: R19.5 Other fecal abnormalities (principal); D12.4 Benign neoplasm of descending colon; D12.2 Benign neoplasm of ascending colon; D12.0 Benign neoplasm of cecum; D12.3 Benign neoplasm of transverse colon; J44.9 Chronic obstructive pulmonary disease, unspecified; I25.10 Atherosclerotic heart disease of native coronary artery without angina pectoris; I25.2 Old myocardial infarction; G47.33 Obstructive sleep apnea (adult) (pediatric); I10 Essential (primary) hypertension; E11.9 Type 2 diabetes mellitus without complications; Z79.4 Long term (current) use of insulin; Z79.02 Long term (current) use of antithrombotics/antiplatelets; Z79.82 Long term (current) use of aspirin; Z79.899 Other long term (current) drug therapy; Z87.891 Personal history of nicotine dependence; K43.2 Incisional hernia without obstruction or gangrene
CPT/HCPCS: 43235; 45385; 82962; 88305; J7120; J2405

== ENCOUNTER 2021-06-27 11:50 | Observation (INO) | payer OTHER, SELFPAY ==
[2021-06-06 12:08] LABS: Hematocrit 48.9 % (40-54); Hemoglobin 16.4 g/dL (13.0-16.5); Mean Corp Hgb Conc 33.5 g/dL (32-36); Mean Corpuscular Hgb 29.2 pg (27.0-32.0); Mean Platelet Vol. 10.6 fl (6.2-12.0); Platelet Count 226 K/mm3 (150-450); RBC Distribution Width CV 13.8 % (11.6-14.6); RBC Distribution Width SD 43.8 fl (35.1-43.9); Red Blood Count 5.62 M/mm3 (4.6-6.2); White Blood Count 12.2 K/mm3 (4.4-11.0)
[2021-06-06 12:38] LABS: Anion Gap 6 (5-15); BUN 17 mg/dL (7-18); BUN/Creat Ratio 17.1 RATIO (10-20); Calcium,Total 9.1 mg/dL (8.5-10.1); Chloride 103 mmol/L (98-107); Creatinine, Serum 0.99 mg/dL (0.70-1.30); EST Glomerular Filtration Rate 81 mL/min (>60); Est Glom Filt Rate - Afr Amer 98 mL/min (>60); Glucose 216 mg/dL (74-106); Potassium 4.1 mmol/L (3.5-5.1); Sodium Level 139 mmol/L (136-145)
[2021-06-06 12:46] LABS: Hemoglobin A1c 7.8 % (3.8-5.6)
[2021-06-27] VITALS (14 sets, daily range): BP systolic 104–149; BP diastolic 63–90; PULSE 62–87; RESP 16–18; TEMP 36.3–36.8; O2SAT 92–97; BMI 43.9; BMI 45.4
[2021-06-27] MEDS: Lactated Ringers 1,000 ML 15 ML IV ×2 (08:35→11:00)
--- NOTE | 2021-06-27 08:57 | HP.PCM_ITS ---
History and Physical Date of Admission: 06/27/21 Intake Vital Signs 05/13/21 08:00 Height 5 ft 11 in Weight: 318 lb 4 oz BMI 44.4 BP 145/85 H Blood Pressure Location Rt brachial Position Sitting Respiration 18 Pulse 66 Pulse Source Monitor Temp 97.3 F L Temp Source Temporal Pulse Oximetry (%) 96 Oxygen Delivery Method room air Intake Visit Reasons: DISCUSS HERNIA SURGERY Chief Complaint: discuss hernia surgery Hotel General Manager Required: No Is patient in pain?: No Allergies No Known Allergies Allergy (Verified 05/13/21 08:01) Medications Lantus Solostar U-100 Insulin 60 units SUBCUT BID 10/28/14 [History Confirmed 05/13/21] Spiriva with HandiHaler 1 puff INHALATION DAILY 10/28/14 [History Confirmed 05/13/21] albuterol sulfate [ProAir HFA] 1 puff INHALATION BID PRN 10/28/14 [History Confirmed 05/13/21] atorvastatin 80 mg PO QHS 10/28/14 [History Confirmed 05/13/21] clopidogrel 75 mg PO DAILY 10/28/14 [History Confirmed 05/13/21] lisinopril 40 mg PO DAILY 10/28/14 [History Confirmed 05/13/21] metformin 1,000 mg PO BIDCM 10/28/14 [History Confirmed 05/13/21] aspirin 81 mg PO DAILY 11/12/20 [History Confirmed 05/13/21] budesonide-formoterol [Symbicort] 2 puff INHALATION BID 11/12/20 [History Confirmed 05/13/21] carvedilol 6.25 mg PO BID 11/12/20 [History Confirmed 05/13/21] cholecalciferol (vitamin D3) [Vitamin D3] 50 mcg PO DAILY 11/12/20 [History Confirmed 05/13/21] gabapentin 300 mg PO BID 11/12/20 [History Confirmed 05/13/21] liraglutide [Victoza 2-Dudley] 18 mg SUBCUT DAILY 11/12/20 [History Confirmed 05/13/21] prednisone 40 mg PO DAILY #10 tab 11/13/20 [Rx Confirmed 05/13/21] sildenafil 25 mg tablet 25 mg PO DAILY PRN 12/27/20 [History Confirmed 05/13/21] [facility] Medical History Ambulates with cane Asthma Back pain Cardiology follow-up encounter COPD (chronic obstructive pulmonary disease) Coronary artery disease CPAP (continuous positive airway pressure) dependence Diabetes Former smoker Gastric reflux High cholesterol History of colitis History of edema History of steroid therapy Hypertension Insulin dependent diabetes mellitus Leg cramps Myocardial infarct Shortness of breath on exertion Sleep apnea Wears glasses Surgical History History of cardiac catheterization History of colostomy History of colostomy reversal History of coronary artery stent placement Hx of CABG Hx of heart bypass surgery Family History Mother Diabetes Social History Smoking Status: Former smoker alcohol intake: never HPI HPI HPI: KINGS CEBALLOS, is a 66 M who presents to the office today for left lower quadrant hernia. Patient saw me back in November and wanted repair of this hernia in June. Patient reports that he grows when he has to go to the bathroom. It is becoming painful. The patient had colostomy with colostomy reversal in the left lower quadrant. ROS General General: No weight change or fatigue HEENT HEENT: No difficulty swallowing Endo Endocrine: No thyroid disease Musc Musculoskeletal: No back problems or arthritis Cardio Cardiovascular: No pacemaker, heart disease, atrial fibrillation, high blood pressure, heart attack, heart stent, palpitations or chest pain Psych Psychiatric: No depression or anxiety Resp Respiratory: No shortness of breath, No cough, No COPD, No asthma and No emphysema Gastro Gastrointestinal: Yes abdominal pain, No nausea or vomiting, No diarrhea, No constipation, No blood in stool, No acid reflux, No hemorrhoids, No ulcers, No gallbladder problem and No black,tarry stools Gabe Hematologic: No blood thinners Exam Const General: cooperative Orientation: alert and oriented x3 HENMT Head: normal to inspection Neck Neck: normal visual inspection and full ROM Chest Chest palpation & inspection: normal inspection of the chest Resp Effort & Inspection: normal respiratory effort Auscultation: clear to auscultation bilaterally Cardio Rate: regular rate Rhythm: regular rhythm GI Inspection: non-distended Palpation: soft, hernia ventral and nontender Skin General: no rashes or lesions noted Neuro General: patient alert and patient oriented x3 Extrem General: full ROM Psych Appearance: grossly normal Mental Status: mental status grossly normal Assessment and Plan Assessment and Plan (1) Ventral incisional hernia: Status: Acute Plan - Dr. Florentin Flores MD: The patient has an incisional ventral hernia at the site of his former colostomy. I discussed a hybrid laparoscopic open approach to repair this hernia. I explained the risks included in the procedure such as bleeding, infection, injury to underlying bowel, recurrence of hernia, mesh placement and hematoma or seroma formation. Patient understands the risks and is willing to proceed. I did inform the patient that I would try to laparoscopically place the mesh but I may have to do an overlay if there is too much scar tissue from his prior laparotomies. I was unable to reduce his hernia and this will be a complicated repair and the patient understands this. Florentin Flores MD Pager: [facility] [address] [place] [address], [address] [place] [address] Office: I have seen and reexamined that patient and there are no changes.
[2021-06-27 09:36] LABS: Bedside Glucose 118 mg/dL (70-110)
[2021-06-27] MEDS: Bupivacaine 0.25% 30 ML Vial (09:55)
--- NOTE | 2021-06-27 11:58 | PCM.OPRPT ---
Problems Associated Problem List Diagnoses (1) Ventral incisional hernia: Report of Operation Date of Procedure: 06/27/21 Pre-Operative Diagnosis: Incisional ventral hernia Post-Operative Diagnosis: Same Surgery/Procedure Performed:: Laparoscopic ventral hernia repair with mesh Description of Procedure: Patient was taken to surgery and general anesthesia was induced. The abdomen was prepped and draped in usual sterile fashion. An incision was made in the right upper quadrant and using Visiport technique a 5 mm port was placed. The abdomen was inspected and there were no injuries. The abdomen was insufflated 15 mmHg and under direct visualization a right lateral 5 mm port and epigastric 5 mm port were placed. The abdomen is inspected and there was a tightly adherent hernia in the left lower quadrant which was unable to be reduced. Next an incision was made over the left lower quadrant and the hernia sac was dissected free from surrounding attachments. Hernia sac was then opened and the hernia was enlarged to allow reduction of the contents. The hernia was then closed using interrupted #1 Nurolon sutures and the abdomen was reinsufflated. Next a [address] mesh was placed into the abdomen and echo device was used to bring it through the center of the hernia. It was then tacked in place and the balloon was removed in its entirety. The mesh was tacked to the anterior abdominal wall in a circumferential fashion in 2 rows and the abdomen was inspected for hemostasis and was obtained using electrocautery. The ports were then removed and the abdomen was allowed to desufflate. The left lower quadrant subcutaneous area was irrigated and suctioned dry and closed with interrupted 3-0 Vicryl suture and running 4-0 Monocryl. All incisions were injected with local anesthetic and closed with 4-0 Monocryl suture. Steri-Strips and bandages were applied. Patient was awoken and taken to PACU in stable condition will be admitted for observation. Grafts/Implants Used: Ventral light ST mesh Admit VTE Documentation VTE Mechan Device Prophylaxis: SCD's
[2021-06-27 12:00] LABS: Bedside Glucose 154 mg/dL (70-110)
--- NOTE | 2021-06-27 12:54 | SUR.PHASEI ---
family updated on pacu progress.
--- NOTE | 2021-06-27 15:11 | PCS.PANDOC ---
PANDEMIC DOCUMENTATION INITIATED: Date: 01/14/2021 Time: 190
[2021-06-27] MEDS: HYDROmorphone 1 MG/ML Syringe IV (16:36)
[2021-06-27] MEDS: 0.9% Normal Saline 1,000 ML 125 ML IV (16:37)
[2021-06-27 20:35] LABS: Bedside Glucose 264 mg/dL (70-110)
[2021-06-27] MEDS: oxyCODONE 5 MG Tablet PO (20:50)
[2021-06-27] MEDS: Carvedilol 6.25 MG Tablet PO (21:58)
[2021-06-28] MEDS: 0.9% Normal Saline 1,000 ML 125 ML IV ×2 (00:03→08:15)
[2021-06-28] MEDS: HYDROmorphone 1 MG/ML Syringe IV (01:16)
[2021-06-28] MEDS: 0.9% Saline Lock 10 ML Syringe IV (01:17)
[2021-06-28 02:05] VITALS: BP 116/50; PULSE 61; RESP 16; TEMP 36.4; O2SAT 96
[2021-06-28] MEDS: oxyCODONE 5 MG Tablet PO ×3 (05:43→16:14)
[2021-06-28 05:56] LABS: Absolute Lymphocyte Count 2.47 X10^3/uL (0.83-4.51); Absolute Neutrophil Count 8.6 X10^3/uL (2.0-7.7); Basophil# 0.02 X10^3/uL; Basophil% 0.2 % (0-1); Eosinophil# 0.01 X10^3/uL; Eosinophils% 0.1 % (0-5); Hematocrit 43.4 % (40-54); Hemoglobin 14.4 g/dL (13.0-16.5); Lymphocyte # 2.47 X10^3/ul (0.83-4.51); Lymphocyte % 19.2 % (19-41); Mean Corp Hgb Conc 33.2 g/dL (32-36); Mean Corpuscular Hgb 28.9 pg (27.0-32.0); Mean Corpuscular Volume 87.1 fL (80-94); Mean Platelet Vol. 10.3 fl (6.2-12.0); Monocyte% 13.2 % (0-10); NRBC Flagged by Analyzer 0 % (0-5); Neutrophil # 8.62 X10^3/uL (2.7-7.7); Neutrophil % 67.1 % (47-70); POSITIVE DIFFERENTIAL YES; Platelet Count 208 K/mm3 (150-450); RBC Distribution Width CV 13.7 % (11.6-14.6); RBC Distribution Width SD 44.2 fl (35.1-43.9); Red Blood Count 4.98 M/mm3 (4.6-6.2); White Blood Count 12.9 K/mm3 (4.4-11.0)
[2021-06-28 06:06] LABS: Differential Indicated SCAN CRITERIA MET
[2021-06-28 06:20] LABS: Bedside Glucose 185 mg/dL (70-110)
[2021-06-28 06:29] LABS: Differential Comment SCANNED
[2021-06-28 06:35] LABS: Anion Gap 4 (5-15); BUN 16 mg/dL (7-18); BUN/Creat Ratio 16.6 RATIO (10-20); Calcium,Total 8.2 mg/dL (8.5-10.1); Chloride 101 mmol/L (98-107); Creatinine, Serum 0.96 mg/dL (0.70-1.30); EST Glomerular Filtration Rate 83 mL/min (>60); Est Glom Filt Rate - Afr Amer 101 mL/min (>60); Glucose 183 mg/dL (74-106); Potassium 4.4 mmol/L (3.5-5.1); Sodium Level 133 mmol/L (136-145)
[2021-06-28] MEDS: Budesonide Respules 0.5 MG/2 ML AMPUL.NEB. INHALATION (06:58)
[2021-06-28] MEDS: Ipratropium/Albuterol Sulfate 3 ML AMPUL.NEB INHALATION ×2 (06:58→12:26)
[2021-06-28 07:00] VITALS: PULSE 61; RESP 19; O2SAT 93
[2021-06-28 08:00] VITALS: BP 127/56; PULSE 62; RESP 18; TEMP 36.6; O2SAT 92
[2021-06-28] MEDS: Carvedilol 6.25 MG Tablet PO (08:16)
[2021-06-28] MEDS: Gabapentin 300 MG Capsule PO (08:16)
[2021-06-28] MEDS: Aspirin 81 MG TAB.CHEW PO (08:16)
[2021-06-28] MEDS: Lisinopril 40 MG Tablet PO (08:17)
[2021-06-28] MEDS: Pantoprazole Sodium 40 MG Tablet PO (08:17)
[2021-06-28] MEDS: Enoxaparin 40 MG/0.4 ML Syringe SC (08:17)
[2021-06-28 11:10] LABS: Bedside Glucose 208 mg/dL (70-110)
[2021-06-28] MEDS: Acetaminophen 325 MG Tablet 650 MG PO ×2 (11:22→16:15)
--- NOTE | 2021-06-28 12:11 | PN.SURG_ITS ---
Subjective Subjective Patient's painIs controlled but he reports no flatus. No nausea vomiting and tolerating clears. Objective Data Objective Data Vital Signs: Vital Signs Temp Pulse Resp BP Pulse Ox 97.9 F 62 18 127/56 H 92 06/28/21 08:00 06/28/21 08:00 06/28/21 08:00 06/28/21 08:00 06/28/21 08:00 Oxygen Flow Rate (L/min) 3 Oxygen Delivery Method Room Air Weight: 326 lb 1.583 oz Body Mass Index (BMI) 45.4 Intake & Output: Intake and Output for Last 24 Hours 06/26/21 06/27/21 06/28/21 23:59 23:59 23:59 Intake Total 1384.67 / 1384.67 1929.17 / 1929.17 Output Total 300 / 1525 3125 / 3125 Balance 1084.67 / -140.33 -1195.83 / -1195.83 Lab / Micro Data Result Diagrams: 06/28/21 05:45 06/28/21 05:45 Labs: Laboratory Results - last 24 hr 06/27/21 20:14: POC Glucose 264 H 06/28/21 05:45: WBC 12.9 H, RBC 4.98, Hgb 14.4, Hct 43.4, MCV 87.1, MCH 28.9, MCHC 33.2, RDW Std Deviation 44.2 H, RDW Coeff of Cornelio 13.7, Plt Count 208, MPV 10.3, Immature Gran % (Auto) 0.200, Neut % (Auto) 67.1, Lymph % (Auto) 19.2, Maverick % (Auto) 13.2 H, Eos % (Auto) 0.1, Baso % (Auto) 0.2, Absolute Neuts (auto) 8.6 H, Absolute Lymphs (auto) 2.47, Nucleated RBC % 0, Differential Comment SCANNED, Diff Path Review September06/28/21 05:45: Sodium 133 L, Potassium 4.4, Chloride 101, Carbon Dioxide 28.0, Anion Gap 4 L, BUN 16, Creatinine 0.96, Estim Creat Clear Calc 82.80, Est GFR (MDRD) Af Amer 101, Est GFR (MDRD) Non-Af 83, BUN/Creatinine Ratio 16.6, Glucose 183 H, Calcium 8.2 L 06/28/21 06:16: POC Glucose 185 H 06/28/21 11:03: POC Glucose 208 H Physical Exam Const oriented x3 and no apparent distress Resp normal respiratory effort Cardio regular rate and regular rhythm GI soft to palpation Palpation: tender Assessment & Plan Assessment/Plan (1) Ventral incisional hernia: PLAN: The patient's extensive surgery yesterday and his comorbidities he was admitted for observation. He is currently still not passing any flatus. He had tolerated clear liquids with no nausea or vomiting and I will advance his diet once he starts passing flatus. I encouraged ambulation. Once he is tolerating regular diet and his pain is well controlled on p.o. medications only he will be discharged home. Florentin Flores MD Pager: [facility] [address] [place] [address], [address] [place] [phone] Office:
[2021-06-28 12:33] VITALS: PULSE 58; RESP 18
[2021-06-28 12:43] LABS: Pathologist Review Reviewed
[2021-06-28 14:00] VITALS: O2SAT 92
--- NOTE | 2021-06-28 15:15 | DS.PCM_ITS ---
Providers Date of Admission: 06/27/21 Primary Care Physician: [facility] Reason For Visit: LAP WITH CONVERSION TO OPEN VENTRAL INCISIONAL HER Diagnosis Discharge Diagnosis (1) Ventral incisional hernia: Status: Acute Code(s): K43.2 - Incisional hernia without obstruction or gangrene Medications at Discharge Home Medications Lantus Solostar U-100 Insulin 60 units SUBCUT BID 10/28/14 Spiriva with HandiHaler 1 puff INHALATION DAILY 10/28/14 albuterol sulfate [ProAir HFA] 1 puff INHALATION BID PRN 10/28/14 atorvastatin 80 mg PO QHS 10/28/14 clopidogrel 75 mg PO DAILY 10/28/14 lisinopril 40 mg PO DAILY 10/28/14 metformin 1,000 mg PO BIDCM 10/28/14 Victoza 2-Dudley 18 mg SUBCUT DAILY 11/12/20 aspirin 81 mg PO DAILY 11/12/20 budesonide-formoterol [Symbicort] 2 puff INHALATION BID 11/12/20 carvedilol 6.25 mg PO BID 11/12/20 cholecalciferol (vitamin D3) [Vitamin D3] 50 mcg PO DAILY 11/12/20 gabapentin 300 mg PO BID 11/12/20 sildenafil 25 mg tablet 25 mg PO DAILY PRN 12/27/20 oxycodone 5 - 10 mg PO Q4H PRN PRN 5 Days #30 tab 06/28/21 Hospital Course Summary of Care Provided Hospital Course: Patient had elective ventral hernia repair with mesh and was admitted after surgery for observation due to the extensive nature of surgery and is comorbidities. Once the patient was tolerating clear liquid and passing flatus his diet was advanced and once he tolerated diet and is pain was controlled on oral medication he was discharged home. Weight / BMI Weight Weight: 326 lb 1.583 oz Body Mass Index (BMI) 45.4 ABG / Lab / Microbiology Data Result Diagrams: 06/28/21 05:45 06/28/21 05:45 Laboratory: Laboratory Results - last 24 hr 06/27/21 20:14: POC Glucose 264 H 06/28/21 05:45: WBC 12.9 H, RBC 4.98, Hgb 14.4, Hct 43.4, MCV 87.1, MCH 28.9, MCHC 33.2, RDW Std Deviation 44.2 H, RDW Coeff of Cornelio 13.7, Plt Count 208, MPV 10.3, Immature Gran % (Auto) 0.200, Neut % (Auto) 67.1, Lymph % (Auto) 19.2, Castro % (Auto) 13.2 H, Eos % (Auto) 0.1, Baso % (Auto) 0.2, Absolute Neuts (auto) 8.6 H, Absolute Lymphs (auto) 2.47, Nucleated RBC % 0, Differential Comment SCANNED, Diff Path Review Reviewed 06/28/21 05:45: Sodium 133 L, Potassium 4.4, Chloride 101, Carbon Dioxide 28.0, Anion Gap 4 L, BUN 16, Creatinine 0.96, Estim Creat Clear Calc 82.80, Est GFR (MDRD) Af Amer 101, Est GFR (MDRD) Non-Af 83, BUN/Creatinine Ratio 16.6, Glucose 183 H, Calcium 8.2 L 06/28/21 06:16: POC Glucose 185 H 06/28/21 11:03: POC Glucose 208 H D/C Instructions Discharge Diet: Light diet - advance as tolerated Discharge Activity: May Not Drive (for 2-3 days or while taking narcotic pain meds.) and May Shower (with the bandage in place 1-2 days after surgery.) Lifting Restrictions: 20 pounds for 8 weeks. Additional Activity Instructions: Climbing stairs is fine, walking is encouraged. Sitting in bed may be uncomfortable. Sitting up using your lateral muscles (sitting up sideways) is usually more comfortable. Do not drive, work heavy equipment of sign legal documents for 24 hours. Pain medications may cause nausea, you should typically eat light foods as you take your pain medications. Pain medications may also cause constipation. If you have difficulty with this, discuss with your doctor. Call your doctor if your incision/area has: Continuous Slow Oozing, Sudden Increased Bleeding, Increased Pain/ Swelling, Increased Redness and Foul Smelling Discharge Call your doctor if you observe: Fever of 101 or Higher Suture Line Care: Avoid Pulling/Pushing and Avoid Pinching/Bending Remove Dressing in: 3 days (Remove bandages in 2 to 3 days and remove Steri- Strips in 7 to 10 days) Cleanse incision/area with: Soap & Water Additional Dressing/Incision Instructions: Resume Plavix Thursday Please Follow Up With: Florentin Flores MD When: Please call to schedule 2 week follow up appointment. [phone] Meaningful Use Info Meaningful Use Diagnoses (Choose all that apply): None applicable Discharge Plan Admission Admit Date/Time: 06/27/21 11:50 Attending Provider: Florentin Flores Primary Care Provider: [facility] Discharge Orders/Prescriptions Prescriptions: New oxycodone 5 mg Tablet 5 - 10 mg PO Q4H PRN PRN (Reason: Pain Score 4-10) 5 Days Qty: 30 RF: 0 Continued sildenafil [Viagra] 25 mg tablet 25 mg PO DAILY PRN (Reason: PRN) RF: 0 atorvastatin 80 MG tablet 80 mg PO QHS RF: 0 clopidogrel 75 MG tablet 75 mg PO DAILY RF: 0 metformin 1,000 MG tablet 1,000 mg PO BIDCM RF: 0 lisinopril 5 MG tablet 40 mg PO DAILY RF: 0 albuterol sulfate [ProAir HFA] 1 PUFF inhaler 1 puff inhalation BID PRN (Reason: Sob &/Or Wheezing) RF: 0 Spiriva with HandiHaler 1 PUFF inhaler 1 puff inhalation DAILY RF: 0 Lantus Solostar U-100 Insulin 100 UNITS/ML insulin pen 60 units subcut BID RF: 0 carvedilol 6.25 mg Tablet 6.25 mg PO BID RF: 0 aspirin 81 mg Tablet 81 mg PO DAILY RF: 0 gabapentin 300 mg Tablet 300 mg PO BID RF: 0 budesonide-formoterol [Symbicort] 80-4.5 mcg/actuation Hfa Aerosol Inhaler 2 puff INHALATION BID RF: 0 cholecalciferol (vitamin D3) [Vitamin D3] 50 mcg (2,000 unit) Capsule 50 mcg PO DAILY RF: 0 Victoza 2-Dudley 0.6 mg/0.1 mL (18 mg/3 mL) Pen Injector 18 mg SUBCUT DAILY RF: 0 Referrals / Follow Up: [facility] [Primary Care Provider] -
[2021-06-28 17:51] LABS: Bedside Glucose 214 mg/dL (70-110)
[2021-06-28 18:00] VITALS: BP 154/54; PULSE 76; RESP 18; TEMP 36.6; O2SAT 92
== END 2021-06-28 18:38 | disposition home or self-care (01) ==
LOC: SDC 12:13 → MS3 12:13
PROVIDERS: Anesthesiology; Admitting Provider Surgery; Referring Provider Surgery; Visit Provider Surgery
PROC: 0WQF4ZZ Repair Abdominal Wall, Percutaneous Endoscopic Approach (ICD-10-PCS; CPT 49652; principal; 2021-06-27 09:15)
DX: K43.2 Incisional hernia without obstruction or gangrene (principal); J44.9 Chronic obstructive pulmonary disease, unspecified; E11.9 Type 2 diabetes mellitus without complications; Z79.4 Long term (current) use of insulin; I25.10 Atherosclerotic heart disease of native coronary artery without angina pectoris; I10 Essential (primary) hypertension; K21.9 Gastro-esophageal reflux disease without esophagitis; E78.00 Pure hypercholesterolemia, unspecified; Z79.899 Other long term (current) drug therapy; Z87.891 Personal history of nicotine dependence; Z79.02 Long term (current) use of antithrombotics/antiplatelets
CPT/HCPCS: 49652; 36415; 80048; 82962; 83036; 85025; 85027; 94640; 94762; 96372; 96374; 96376; 99218; 99251; J7030; J7120; A4216; G0378; G0463; J2405

== ENCOUNTER 2022-02-21 06:51 | Day surgery (SDC) | payer OTHER, SELFPAY ==
[2022-02-21] VITALS (7 sets, daily range): BP systolic 100–131; BP diastolic 62–70; PULSE 52–80; RESP 16–18; TEMP 36.4–36.8; O2SAT 88–95; BMI 44.6
[2022-02-21] MEDS: Lactated Ringers 1,000 ML 15 ML IV (07:05)
--- NOTE | 2022-02-21 07:11 | HP.PCM_ITS ---
History and Physical Date of Admission: 02/21/22 Intake Vital Signs ? 06/27/2212:44 01/13/2209:00 Height 5 ft 11 in 5 ft 11 in Weight: ? 310 lb BMI ? 43.2 BP ? 154/87 H Blood Pressure Location ? Rt brachial Position ? Sitting Respiration ? 18 Intake Visit Reasons:?1 YR REPEAT SCOPE. 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 Supervisor Required: No Is patient in pain?: No Allergies empagliflozin Allergy (Mild, Verified 01/13/22 09:07) PT UNSURE OF REACTIONglipizide Allergy (Mild, Verified 01/13/22 09:06) PT UNSURE OF REACTIONtrazodone Allergy (Mild, Verified 01/13/22 09:06) PT UNSURE OF REACTION Medications albuterol sulfate 90 mcg/actuation aerosol inhaler (ProAir HFA) 1 puff inhalation BID PRN Sob &/Or Wheezing 10/28/14 [History Confirmed 01/13/22] insulin glargine 100 unit/mL (3 mL) subcutaneous pen (Lantus Solostar U-100 Insulin) 60 units subcut BID diabetes 10/28/14 [History Confirmed 01/13/22] lisinopril 5 mg tablet 40 mg PO DAILY blood pressure 10/28/14 [History Confirmed 01/13/22] metformin 1,000 mg tablet 1,000 mg PO BIDCM diabetes 10/28/14 [History Confirmed 01/13/22] tiotropium bromide 18 mcg capsule with inhalation device (Spiriva with HandiHaler) 1 puff inhalation DAILY COPD 10/28/14 [History Confirmed 01/13/22] aspirin 81 mg tablet 81 mg PO DAILY heart health 11/12/20 [History Confirmed 01/13/22] budesonide-formoterol HFA 80 mcg-4.5 mcg/actuation aerosol inhaler (Symbicort) 2 puff inhalation BID COPD 11/12/20 [History Confirmed 01/13/22] cholecalciferol (vitamin D3) 50 mcg (2,000 unit) capsule (Vitamin D3) 50 mcg PO DAILY supplement 11/12/20 [History Confirmed 01/13/22] gabapentin 300 mg tablet 300 mg PO BID neuropathy 11/12/20 [History Confirmed 01/13/22] liraglutide 0.6 mg/0.1 mL (18 mg/3 mL) subcutaneous pen injector (Victoza 2-Dudley) 18 mg subcut DAILY diabetes 11/12/20 [History Confirmed 01/13/22] sildenafil 25 mg tablet (Viagra) 25 mg PO DAILY PRN PRN 12/27/20 [History Confirmed 01/13/22] carvedilol 6.25 mg tablet 3.125 mg PO BID blood pressure 01/13/22 [History Confirmed 01/13/22] PFSH Medical History? Ambulates with cane Asthma Back pain Cardiology follow-up encounter COPD (chronic obstructive pulmonary disease) Coronary artery disease CPAP (continuous positive airway pressure) dependence Diabetes Former smoker Gastric reflux High cholesterol History of colitis History of edema History of steroid therapy History of ventral hernia Hypertension Insulin dependent diabetes mellitus Leg cramps Myocardial infarct Shortness of breath on exertion Sleep apnea Ventral incisional hernia Wears glasses Surgical History? History of cardiac catheterization History of colostomy History of colostomy reversal History of coronary artery stent placement History of esophagogastroduodenoscopy (EGD) History of ventral hernia repair Hx of CABG Hx of heart bypass surgery Family History? Mother Diabetes Social History? Smoking Status:? Former smoker alcohol intake:? never HPI HPI HPI: KINGS CEBALLOS, is a 66 M who presents to the office today for follow-up and scheduling of colonoscopy.? Patient is denying any abdominal pain or blood in the stool at this time. ROS General General: No weight change or fatigue HEENT HEENT: No difficulty swallowing Endo Endocrine: No thyroid disease Musc Musculoskeletal: No back problems or arthritis Cardio Cardiovascular: No pacemaker, heart disease, atrial fibrillation, high blood pressure, heart attack, heart stent, palpitations or chest pain Psych Psychiatric: No depression or anxiety Resp Respiratory: No shortness of breath, No cough, No COPD, No asthma and No emphysema Gastro Gastrointestinal: Yes abdominal pain, No nausea or vomiting, No diarrhea, No co nstipation, No blood in stool, No acid reflux, No hemorrhoids, No ulcers, No gallbladder problem and No black,tarry stools Gabe Hematologic: No blood thinners Exam Const General: cooperative Orientation: alert and oriented x3 HENMT Head: normal to inspection Neck Neck: normal visual inspection and full ROM Chest Chest palpation & inspection: normal inspection of the chest Resp Effort & Inspection: normal respiratory effort Auscultation: clear to auscultation bilaterally Cardio Rate: regular rate Rhythm: regular rhythm GI Inspection: non-distended Palpation: soft and nontender Skin General: no rashes or lesions noted Neuro General: patient alert and patient oriented x3 Extrem General: full ROM Psych Appearance: grossly normal Mental Status: mental status grossly normal Assessment and Plan Assessment and Plan (1) History of colon polyps: ?Status:?Acute ?Plan: The patient had a colonoscopy last year and during that time over 6 tubular adenomas were identified and the patient did not have adequate prep to identify smaller tubular adenoma so he was recommended to repeat in 1 year. I explained endoscopy in detail to the patient.? I explained the risks including but not limited to stroke or heart attack with anesthesia, perforation of the GI tract, bleeding, infection.? I explained that any of these could necessitate further emergency surgery.? The patient understands and all questions were answered sufficiently.? The patient wishes to proceed with procedure. I will plan a longer 2-day prep to ensure adequate prep for colonoscopy. Florentin Flores MD Pager: [facility] [address] [place] [address], [address] [place] [address] Office: I have re-examined the patient. There are no clinical changes since date of exam.
[2022-02-21 07:50] LABS: Bedside Glucose 111 mg/dL (74-106)
--- NOTE | 2022-02-21 08:00 | COLBX_PTH ---
PATIENT: KINGS CEBALLOS LOC: EN U#:[id number] AGE/SX: 66/M ROOM: RE02/21/[address]: Dr. Florentin Flores MD : 1955 BED: DIS: 02/21/2022 SPEC #: [id number] RECD: 02/21/22 10:53 STATUS: VERONICA EMMETT #: [id number] MONICA: 02/21/22 08:[address]: Florentin Flores DEPT: SURGICAL PATHOLOGY RECD BY: Ulices Muro ENTERED: 02/21/22 12:12 SP TYPE: COLON BX OTHR DR: [facility] Tissues: A - Ascending colon B - Descending colon C - Descending colon D - Rectum, NOS Procedures: Surgery Specimen Level IV HEADER OPERATION: Colonoscopy (MAC) PRE-OP DIAGNOSIS: History of colon polyps TISSUE SUBMITTED: A ? Ascending colon polyp, B ? Descending colon polyp x2, C ? Distal descending colon polyp, D ? Rectal polyp MICROSCOPIC DIAGNOSIS A. Ascending colon polyp, biopsy: Tubular adenoma. B. Descending colon polyps, biopsy: Tubular adenoma. Fragments of colonic mucosa with focal hyperplastic change. C. Distal descending colon polyp, biopsy: Hyperplastic polyp. D. Rectal polyp, biopsy: Hyperplastic polyp. AM:preethi 02/24/2022 MICROSCOPIC DESCRIPTION Slides are reviewed. GROSS DESCRIPTION A - Received in fixative is one container labeled with the patient's name and designated ascending colon polyp. The specimen consists of a hernandez-pink polyp measuring 0.5 x 0.5 x 0.3 cm. The specimen is totally submitted in one cassette. B - Received in fixative is one container labeled with the patient's name and designated descending colon polyp x2. The specimen consists of multiple irregular fragments of light hernandez soft tissue that in aggregate measure 1 x 0.3 x 0.2 cm. The specimen is totally submitted in one cassette. C - Received in fixative is one container labeled with the patient's name and designated distal descending polyp. The specimen consists of one irregular fragment of light hernandez soft tissue that measures 0.2 x 0.2 x 0.1 cm. The specimen is totally submitted in one cassette. D - Received in fixative is one container labeled with the patient's name and designated rectal polyp. The specimen consists of one irregular fragment of light hernandez soft tissue that measures 0.3 x 0.3 x 0.1 cm. The specimen is totally submitted in one cassette. / JESSICA:preethi 02/21/2022 TC:5 CPT: 79368 x4
--- NOTE | 2022-02-21 08:19 | OP.CCLET_ITS ---
02/21/2022 [facility] Re : Colonoscopy procedure for [facility] This procedure was performed on Monday, February 21, 2022. My impressions and recommendations are as follows: Impressions : - Five small polyps in the rectum, in the proximal descending colon, in the distal descending colon and in the ascending colon, removed with a hot snare. Resected and retrieved. Recommendations : - Discharge patient to home. - Resume previous diet. - Continue present medications. - Await pathology results. - Repeat colonoscopy in 3 years for surveillance. My findings are described in the full procedure note, which is enclosed. If I can be of further assistance, please feel free to contact me at Doctor phone number(s): , Work: . Sincerely, Florentin Flores MD 02/21/2022 8:19:04 AM This report has been signed electronically.
--- NOTE | 2022-02-21 08:19 | OP.COLON_ITS ---
Patient Name: Clifford Boone Procedure Date: 02/21/2022 7:44 AM Date of : 1955 Age: 66 Procedure: Colonoscopy Indications: High risk colon cancer surveillance: Personal history of colonic polyps Providers: Florentin Flores MD Medicines: Monitored Anesthesia Care Patient Profile: This is a 66 year old male. Refer to note in patient chart for documentation of history and physical. Last Colonoscopy: 3 years ago. Complications: No immediate complications. Estimated blood loss: Minimal. Procedure: Pre-Anesthesia Assessment: - Prior to the procedure, a History and Physical was performed, and patient medications and allergies were reviewed. The patient's tolerance of previous anesthesia was also reviewed. The risks and benefits of the procedure and the sedation options and risks were discussed with the patient. All questions were answered, and informed consent was obtained. Prior Anticoagulants: The patient has taken no previous anticoagulant or antiplatelet agents. After reviewing the risks and benefits, the patient was deemed in satisfactory condition to undergo the procedure. After I obtained informed consent, the scope was passed under direct vision. Throughout the procedure, the patient's blood pressure, pulse, and oxygen saturations were monitored continuously. The colonoscope was introduced through the anus and advanced to the cecum, identified by appendiceal orifice and ileocecal valve. The colonoscopy was performed without difficulty. The patient tolerated the procedure well. The quality of the bowel preparation was good. Scope In: 8:00:14 AM Scope Out: 8:15:52 AM Total Procedure Duration Time 0 hours 15 minutes 38 seconds Findings: Five polyps were found in the rectum, proximal descending colon, distal descending colon and ascending colon. The polyps were small in size. These polyps were removed with a hot snare. Resection and retrieval were complete. Impression: - Five small polyps in the rectum, in the proximal descending colon, in the distal descending colon and in the ascending colon, removed with a hot snare. Resected and retrieved. Recommendation: - Discharge patient to home. - Resume previous diet. - Continue present medications. - Await pathology results. - Repeat colonoscopy in 3 years for surveillance. Procedure Code(s): --- Professional --- 46735, Colonoscopy, flexible; with removal of tumor(s), polyp(s), or other lesion(s) by snare technique Diagnosis Code(s): --- Professional --- Z86.010, Personal history of colonic polyps K62.1, Rectal polyp D12.4, Benign neoplasm of descending colon D12.2, Benign neoplasm of ascending colon CPT copyright 2017 [employer]. All rights reserved. The codes documented in this report are preliminary and upon outpatient coder review may be revised to meet current compliance requirements. Florentin Flores MD 02/21/2022 8:19:04 AM This report has been signed electronically. Number of Addenda: 0 Note Initiated On: 02/21/2022 7:44 AM
== END 2022-02-21 09:10 | disposition home or self-care (01) ==
LOC: EN 06:51 → AC 06:52
PROVIDERS: Visit Provider Surgery
PROC: 0DJD8ZZ Inspection of Lower Intestinal Tract, Via Natural or Artificial Opening Endoscopic (ICD-10-PCS; CPT 45378; principal; 2022-02-21 07:55)
DX: D12.4 Benign neoplasm of descending colon (principal); J44.9 Chronic obstructive pulmonary disease, unspecified; Z79.4 Long term (current) use of insulin; E11.9 Type 2 diabetes mellitus without complications; K63.5 Polyp of colon; D12.2 Benign neoplasm of ascending colon; K62.1 Rectal polyp; I25.10 Atherosclerotic heart disease of native coronary artery without angina pectoris; J45.909 Unspecified asthma, uncomplicated; G47.30 Sleep apnea, unspecified; Z86.010 Personal history of colon polyps; Z87.891 Personal history of nicotine dependence
CPT/HCPCS: 45385; 82962; 88305; J7120; J2405

== ENCOUNTER 2022-08-14 06:52 | Emergency (ER) | payer OTHER, SELFPAY ==
[2022-08-14 06:53] VITALS: BP 193/81; PULSE 93; RESP 23; TEMP 35.9; O2SAT 93; BMI 42.2
[2022-08-14 06:57] VITALS: BP 193/81; PULSE 93; RESP 23; TEMP 35.9; O2SAT 93
--- NOTE | 2022-08-14 07:07 | RAD_ITS ---
STUDY: X-RAY CHEST REASON FOR EXAM: Male, 67 years old. cough, sob, copd TECHNIQUE: Single AP portable view of the chest. COMPARISON: November 12, 2020 FINDINGS: No visualized consolidation or infiltrates. Normal heart size. The lungs are clear and expanded. There is no demonstrated pleural abnormality. Sternal cerclage wires are present from a prior sternotomy. Normal mediastinum and melony. Normal visualized pulmonary arteries. There is atherosclerotic calcification of the aortic arch with tortuosity. There are diffuse degenerative changes of the visualized thoracic spine. Normal visualized ribs, clavicles, and shoulders. There is no demonstrated abnormality of the visualized soft tissue structures of the upper abdomen. RAD/Chest 1 View (Portable) IMPRESSION: Degenerative changes, as described above. No demonstrated acute cardiopulmonary process. Electronically Signed: Phuc Langford MD at 9:06 EDT ,
--- NOTE | 2022-08-14 07:07 | EKG12_ITS ---
Test Reason : SOB Blood Pressure : / mmHG Vent. Rate : 081 BPM Atrial Rate : 081 BPM P-R Int : 220 ms QRS Dur : 098 ms QT Int : 334 ms P-R-T Axes : 059 -55 108 degrees QTc Int : 387 ms Sinus rhythm with 1st degree A-V block Left axis deviation Left ventricular hypertrophy with repolarization abnormality ( R in aVL ) Inferior infarct , age undetermined Anteroseptal infarct , age undetermined Abnormal ECG Confirmed by HEIDY GAMBOA, LYUBOV ([id number]), web content editor JADE BARRIENTOS ([id number]) on 08/18/2022 12:11:56 P M Referred By: Confirmed By:CHRISTIAN MOODY MD
--- NOTE | 2022-08-14 07:08 | ED.VIS.DYS ---
HPI History of Present Illness Chief Complaint: Shortness of Breath Informant: patient and spouse/S.O. Onset/Context/Timing Onset: Yesterday Context: gradual and onset Timing: Continuous Quality: Positive for Wheezing Current Severity: Moderate Maximum Severity: Severe Worsened by: Exertion and Coughing Relieved by: Albuterol (some) Associated Symptoms cough and rhinorrhea Chest Pain: Positive for None Narrative Narrative: Patient with a history of CAD and COPD, dyspneic since last night worse overnight despite using albuterol treatments which were helping some. Has had cough, rhinorrhea, chest congestion for the past 2 days. Subjective chills overnight, low-grade fever in the 99 range. Leg edema is better than usual lately. He is not on oxygen for his COPD and does not have a known history of congestive heart failure. States he has had no known exposures to anyone who has been sick lately, no recent travel out of the area or hospitalization, has not had a significant COPD exacerbation or prednisone in the past 2 or 3 years. Is vaccinated against COVID and influenza. [facility] Medical History Ambulates with cane Asthma Back pain Cardiology follow-up encounter COPD (chronic obstructive pulmonary disease) Coronary artery disease CPAP (continuous positive airway pressure) dependence Diabetes Former smoker Gastric reflux High cholesterol History of colitis History of edema History of steroid therapy History of ventral hernia Hypertension Insulin dependent diabetes mellitus Leg cramps Myocardial infarct Shortness of breath on exertion Sleep apnea Ventral incisional hernia Wears glasses Home Medications albuterol sulfate 90 mcg/actuation aerosol inhaler (ProAir HFA) 1 puff inhalation BID PRN Sob &/Or Wheezing 10/28/14 [History Last Taken 02/21/22 05:30] insulin glargine 100 unit/mL (3 mL) subcutaneous pen (Lantus Solostar U-100 Insulin) 60 units subcut BID diabetes 10/28/14 [History Last Taken 11/12/20] lisinopril 5 mg tablet 40 mg PO DAILY blood pressure 10/28/14 [History Last Taken 02/21/22 05:30] metformin 1,000 mg tablet 1,000 mg PO BIDCM diabetes 10/28/14 [History Last Taken 11/12/20] tiotropium bromide 18 mcg capsule with inhalation device (Spiriva with HandiHaler) 1 puff inhalation DAILY COPD 10/28/14 [History Last Taken 06/27/21 07:30] aspirin 81 mg tablet 81 mg PO DAILY heart health 11/12/20 [History Last Taken 02/15/22] budesonide-formoterol HFA 80 mcg-4.5 mcg/actuation aerosol inhaler (Symbicort) 2 puff inhalation BID 11/12/20 [History Last Taken 11/12/20] cholecalciferol (vitamin D3) 50 mcg (2,000 unit) capsule (Vitamin D3) 50 mcg PO DAILY supplement 11/12/20 [History Last Taken 11/12/20] gabapentin 300 mg tablet 300 mg PO BID neuropathy 11/12/20 [History Last Taken 01/14/21] liraglutide 0.6 mg/0.1 mL (18 mg/3 mL) subcutaneous pen injector (Victoza 2-Dudley) 18 mg subcut WE diabetes 11/12/20 [History Last Taken 11/12/20] sildenafil 25 mg tablet (Viagra) 25 mg PO DAILY PRN PRN 12/27/20 [History Last Taken Unknown] carvedilol 6.25 mg tablet 3.125 mg PO BID blood pressure 01/13/22 [History Last Taken 02/21/22 05:30] benzonatate 100 mg capsule 200 mg PO TID PRN PRN Cough #20 CAPSULES 08/14/22 [Rx Last Taken Unknown] doxycycline monohydrate 100 mg capsule 100 mg PO BID #14 CAPSULES 08/14/22 [Rx Last Taken Unknown] prednisone 10 mg tablet 10 mg PO UD #33 tabs 08/14/22 [Rx Last Taken Unknown] Allergy/AdvReac Type Severity Reaction Status Date / Time empagliflozin Allergy Mild PT UNSURE Verified 08/14/22 06:57 OF REACTION glipizide Allergy Mild PT UNSURE Verified 08/14/22 06:57 OF REACTION trazodone Allergy Mild PT UNSURE Verified 08/14/22 06:57 OF REACTION Family History Mother Diabetes Surgical History History of cardiac catheterization History of colostomy History of colostomy reversal History of coronary artery stent placement History of esophagogastroduodenoscopy (EGD) History of ventral hernia repair Hx of CABG Hx of heart bypass surgery Social History Smoking Status: Former smoker alcohol intake: never ROS ROS ED Constitutional Constitutional ED: Reports chills and fever(s) Eyes Eyes: Denies change in vision or diplopia ENT ENT ED: Reports rhinorrhea; Denies ear pain or sore throat Cardiovascular Cardiovascular: Reports leg edema; Denies chest pain or palpitations Respiratory/Chest Respiratory/Chest: Reports as per HPI, chest congestion, cough, dyspnea and sputum Gastrointestinal Gastrointestinal: Denies abdominal pain, diarrhea, nausea or vomiting Genitourinary Genitourinary ED: Denies dysuria or hematuria Musculoskeletal Musculoskeletal: Denies back pain or neck pain Integumentary Denies abscess or rash Neurologic Neurologic: Denies headache(s), paresthesias or weakness Psychiatric Psychiatric: Denies anxiety or suicidal thoughts EXAM Physical Exam Const Vital Signs: 08/14/22 06:53 08/14/22 06:53 08/14/22 06:57 Temperature 96.7 F L 96.7 F L Temperature Source Temporal Oral Pulse Rate 93 93 Respiratory Rate 23 H 23 H Respiratory Effort Short of Breath Accessory Muscle Use Respiratory Depth Deep Respiratory Pattern Tachypnea Blood Pressure 193/81 H 193/81 H Blood Pressure Mean 118 118 Pulse Ox 93 93 Oxygen Delivery Method Room Air Room Air Room Air 08/14/22 07:48 08/14/22 08:33 Temperature Temperature Source Pulse Rate 66 79 Respiratory Rate 16 15 Respiratory Effort Respiratory Depth Respiratory Pattern Normal Blood Pressure 161/87 H Blood Pressure Mean 111 Pulse Ox 93 Oxygen Delivery Method Room Air Positive well nourished, well developed and obese Constitutional Narrative: Mild respiratory distress General Appearance ED: well developed Nutritional Appearance: obese HEENT Reports moist mucous membranes normocephalic and atraumatic Eyes PERRL and EOMs intact bilaterally Neck full ROM, no lymphadenopathy and supple Resp Resp Narrative: Mild respiratory distress. Diffuse expiratory wheezing and prolonged expiratory phase. Equal breath sounds bilaterally. Cardio regular rate, regular rhythm and no murmurs GI non-tender and non-distended Auscultation: normoactive bowel sounds Palpation: soft Back/Spine no CVA tenderness General Back: other FROM Extremity normal to inspection General Extremety ED: Yes edema; Negative for pulses abnormal or tenderness General Extremity: edema bilateral lower extremity Details: moderate; Negative for pulses abnormal Neuro oriented x3, CN's II-XII intact bilaterally and no sensory deficits noted Sensorium / Orientation: awake and alert Motor Exam: strength 5/5 throughout Psych mental status grossly normal Skin no rashes or lesions noted and no wounds MDM MDM MDM Narrative Medical decision making narrative: Patient doing much better with stable vital signs and blood pressure in the 160s after a set of nebulizer treatments. Chest x-ray 1 view on my interpretation shows chronic changes, CABG wires, no acute infiltrates or signs of CHF. Radiology in agreement. He has a leukocytosis of 14.9 similar to prior readings, no significant leftward shift, and a normal troponin and BNP. His EKG shows no acute ischemic abnormalities. Attempted to obtain COVID and influenza swabs to evaluate for those, but the patient refuses the swabs. Patient was offered admission he declines and is amenable to going home. Gave him Solu-Medrol based on all of this and likely COPD exacerbation etiology of his dyspnea. Patient ambulatory on room air, no lower than 93-94% and did okay, feels well enough to go home. Prescribed prednisone, Tessalon at 's request, in addition to doxycycline to prophylax against bacterial superinfection for what is probably a viral illness. Lab Data Attestation: I reviewed the patient's lab results. Labs: Laboratory Results - last 24 hr 08/14/22 08/14/22 08/14/22 07:15 07:15 07:15 WBC 14.9 H RBC 5.15 Hgb 15.6 Hct 45.7 MCV 88.7 MCH 30.3 MCHC 34.1 RDW Std Deviation 44.4 H RDW Coeff of Cornelio 13.6 Plt Count 216 MPV 10.3 Immature Gran % (Auto) 0.400 Neut % (Auto) 69.4 Lymph % (Auto) 18.5 L [place] % (Auto) 9.0 Eos % (Auto) 2.2 Baso % (Auto) 0.5 Absolute Neuts (auto) 10.3 H Absolute Lymphs (auto) 2.75 Nucleated RBC % 0 Sodium 139 Potassium 3.4 L Chloride 102 Carbon Dioxide 28.0 Anion Gap 9 BUN 16 Creatinine 0.94 Estim Creat Clear Calc 83.44 Est GFR (MDRD) Af Amer 103 Est GFR (MDRD) Non-Af 85 BUN/Creatinine Ratio 17.0 Glucose 232 H Calcium 8.8 Troponin I High Sens 12 B-Natriuretic Peptide 51.5 Radiography Diagnostic Testing: Clinical Impression(s) from Imaging Studies Chest X-Ray 08/14/22 07:07 IMPRESSION: Degenerative changes, as described above. No demonstrated acute cardiopulmonary process. 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 benzonatate [benzonatate] 100 mg capsule 200 mg PO TID PRN PRN (Reason: Cough) Qty: 20 0RF doxycycline monohydrate 100 mg capsule 100 mg PO BID Qty: 14 0RF No Action sildenafil [Viagra] 25 mg tablet 25 mg PO DAILY PRN (Reason: PRN) Rx Instructions: administer 30 minutes to 4 hours before activity metformin 1,000 MG tablet 1,000 mg PO BIDCM lisinopril 5 MG tablet 40 mg PO DAILY albuterol sulfate [ProAir HFA] 1 PUFF inhaler 1 puff inhalation BID PRN (Reason: Sob &/Or Wheezing) Spiriva with HandiHaler 1 PUFF inhaler 1 puff inhalation DAILY insulin glargine [Lantus Solostar U-100 Insulin] 100 UNITS/ML insulin pen 60 units subcut BID aspirin 81 mg Tablet 81 mg PO DAILY Label Comments: STOP 5 DAYS PRIOR gabapentin 300 mg Tablet 300 mg PO BID budesonide-formoterol [Symbicort] 80-4.5 mcg/actuation Hfa Aerosol Inhaler 2 puff INHALATION BID cholecalciferol (vitamin D3) [Vitamin D3] 50 mcg (2,000 unit) Capsule 50 mcg PO DAILY Victoza 2-Dudley 0.6 mg/0.1 mL (18 mg/3 mL) Pen Injector 18 mg SUBCUT WE Rx Instructions: 18 units in the am carvedilol 6.25 mg tablet 3.125 mg PO BID [facility]Primary [facility] Provider[facility] - 1 Week if not improving (Return to the ER if worsening) Disposition Disposition: Home, Self Care
[2022-08-14 07:25] LABS: Absolute Lymphocyte Count 2.75 X10^3/uL (0.83-4.51); Absolute Neutrophil Count 10.3 X10^3/uL (2.0-7.7); Basophil# 0.08 X10^3/uL; Basophil% 0.5 % (0-1); Eosinophil# 0.32 X10^3/uL; Eosinophils% 2.2 % (0-5); Hematocrit 45.7 % (40-54); Hemoglobin 15.6 g/dL (13.0-16.5); Lymphocyte # 2.75 X10^3/ul (0.83-4.51); Lymphocyte % 18.5 % (19-41); Mean Corp Hgb Conc 34.1 g/dL (32-36); Mean Corpuscular Hgb 30.3 pg (27.0-32.0); Mean Corpuscular Volume 88.7 fL (80-94); Mean Platelet Vol. 10.3 fl (6.2-12.0); Monocyte# 1.34 X10^3/uL; NRBC Flagged by Analyzer 0 % (0-5); Neutrophil % 69.4 % (47-70); Platelet Count 216 K/mm3 (150-450); RBC Distribution Width CV 13.6 % (11.6-14.6); RBC Distribution Width SD 44.4 fl (35.1-43.9); Red Blood Count 5.15 M/mm3 (4.6-6.2); White Blood Count 14.9 K/mm3 (4.4-11.0)
[2022-08-14] MEDS: Ipratropium/Albuterol Sulfate 3 ML AMPUL.NEB INHALATION (07:39)
[2022-08-14] MEDS: Albuterol 2.5 MG/3 ML VIAL.NEB. INHALATION ×2 (07:39)
[2022-08-14 07:48] VITALS: PULSE 66; RESP 16
[2022-08-14 07:49] LABS: Anion Gap 9 (5-15); BNP,B-Type NATRIURETIC PEPTIDE 51.5 pg/mL (0-100); BUN 16 mg/dL (7-18); Calcium,Total 8.8 mg/dL (8.5-10.1); Chloride 102 mmol/L (98-107); Creatinine, Serum 0.94 mg/dL (0.70-1.30); EST Glomerular Filtration Rate 85 mL/min (>60); Est Glom Filt Rate - Afr Amer 103 mL/min (>60); Estimated Creatinine Clearance 83.44 ml/min; Glucose 232 mg/dL (74-106); Potassium 3.4 mmol/L (3.5-5.1); Sodium Level 139 mmol/L (136-145); Troponin-I HS 12 pg/mL (3.0-78.0)
[2022-08-14] MEDS: MethylPREDNISolone 125 MG/2 ML Vial IV (08:32)
[2022-08-14 08:33] VITALS: BP 161/87; PULSE 79; RESP 15; O2SAT 93
[2022-08-14 09:00] VITALS: O2SAT 94
[2022-08-14 09:43] VITALS: BP 168/79; PULSE 58; RESP 16; O2SAT 94
== END 2022-08-14 09:44 | disposition home or self-care (01) ==
PROVIDERS: Emergency Provider Emergency Medicine; Visit Provider Emergency Medicine
DX: J44.0 Chronic obstructive pulmonary disease with (acute) lower respiratory infection (principal); J20.9 Acute bronchitis, unspecified; I25.10 Atherosclerotic heart disease of native coronary artery without angina pectoris; I25.2 Old myocardial infarction; G47.30 Sleep apnea, unspecified; E66.9 Obesity, unspecified; Z95.5 Presence of coronary angioplasty implant and graft; Z95.1 Presence of aortocoronary bypass graft; Z87.891 Personal history of nicotine dependence
CPT/HCPCS: 71045; 80048; 83880; 84484; 85025; 93005; 94640; 96374; 99284; A4216

== ENCOUNTER 2024-04-26 20:06 | Inpatient (IN) | payer OTHER, SELFPAY ==
[2024-04-26 20:06] VITALS: BP 167/105; PULSE 53; RESP 20; TEMP 36.2; O2SAT 98; BMI 36.9
[2024-04-26 21:06] LABS: Absolute Lymphocyte Count 3.79 X10^3/uL (0.83-4.51); Basophil# 0.08 X10^3/uL; Basophil% 0.5 % (0-1); Eosinophil# 0.31 X10^3/uL; Hematocrit 44.5 % (40-54); Hemoglobin 15.9 g/dL (13.0-16.5); Lymphocyte # 3.79 X10^3/ul (0.83-4.51); Lymphocyte % 24.4 % (19-41); Mean Corp Hgb Conc 35.7 g/dL (32-36); Mean Corpuscular Hgb 31.1 pg (27.0-32.0); Mean Corpuscular Volume 86.9 fL (80-94); Mean Platelet Vol. 10.3 fl (6.2-12.0); Monocyte% 8.4 % (0-10); NRBC Flagged by Analyzer 0 % (0-5); Neutrophil % 64.4 % (47-70); Platelet Count 251 K/mm3 (150-450); RBC Distribution Width CV 13.4 % (11.6-14.6); RBC Distribution Width SD 42.7 fl (35.1-43.9); Red Blood Count 5.12 M/mm3 (4.6-6.2); White Blood Count 15.5 K/mm3 (4.4-11.0)
[2024-04-26 21:36] LABS: AST(SGOT) 23 U/L (15-37); Alanine Aminotransfer ALT/SGPT 31 U/L (16-61); Albumin, Serum 3.5 g/dL (3.2-5.0); Alkaline Phosphatase 77 U/L (45-117); Anion Gap 9 (5-15); BUN 25 mg/dL (7-18); BUN/Creat Ratio 23.4 RATIO (10-20); Calcium,Total 9.2 mg/dL (8.5-10.1); Chloride 102 mmol/L (98-107); Creatinine, Serum 1.07 mg/dL (0.70-1.30); EST Glomerular Filtration Rate 73 mL/min (>60); Est Glom Filt Rate - Afr Amer 89 mL/min (>60); Estimated Creatinine Clearance 88.33 ml/min; Globulin 3.6 g/dL (2.2-4.2); Glucose 117 mg/dL (74-106); Potassium 3.6 mmol/L (3.5-5.1); Protein, Total 7.1 g/dL (6.4-8.2); Sodium Level 137 mmol/L (136-145)
[2024-04-26 23:02] VITALS: BP 138/82; PULSE 74; RESP 20; O2SAT 96
--- NOTE | 2024-04-26 23:02 | ED.RN ---
delay in vitals due to busy triage
--- NOTE | 2024-04-26 23:24 | EDS_ITS ---
HPI HPI - GI History of Present Illness Chief Complaint: Abd Pain Informant: patient and spouse/S.O. Narrative Narrative: 69-year-old male right upper quadrant colicky pain radiating up to the upper right chest/shoulder on occasion, started gradually yesterday, he has not eaten anything due to the having a very poor appetite since this started. Never had this pain before. No better with belching, bowel movement. Normal urination. No fevers or chills or jaundice. No confusion. No cough or dyspnea. [facility] Medical History History of ventral hernia Wears glasses History of steroid therapy Insulin dependent diabetes mellitus Ambulates with cane High cholesterol Back pain Gastric reflux Former smoker Shortness of breath on exertion Leg cramps History of edema Cardiology follow-up encounter Ventral incisional hernia History of colitis CPAP (continuous positive airway pressure) dependence Sleep apnea Myocardial infarct Diabetes COPD (chronic obstructive pulmonary disease) Asthma Coronary artery disease Hypertension Home Medications ?Medication ?Instructions ?Recorded ?Last Taken ?Type albuterol sulfate 90 mcg/actuation 1 puff inhalation BID PRN Sob &/Or 10/28/14 02/21/22 05:30 History aerosol inhaler (ProAir HFA) Wheezing insulin glargine 100 unit/mL (3 60 units subcut BID diabetes 10/28/14 11/12/20 History mL) subcutaneous pen (Lantus Solostar U-100 Insulin) lisinopril 5 mg tablet 40 mg PO DAILY blood pressure 10/28/14 02/21/22 05:30 History metformin 1,000 mg tablet 1,000 mg PO BIDCM diabetes 10/28/14 11/12/20 History tiotropium bromide 18 mcg capsule 1 puff inhalation DAILY COPD 10/28/14 06/27/21 07:30 History with inhalation device (Spiriva with HandiHaler) aspirin 81 mg tablet 81 mg PO DAILY heart health 11/12/20 02/15/22 History budesonide-formoterol HFA 80 2 puff inhalation BID 11/12/20 11/12/20 History mcg-4.5 mcg/actuation aerosol inhaler (Symbicort) cholecalciferol (vitamin D3) 50 50 mcg PO DAILY supplement 11/12/20 11/12/20 History mcg (2,000 unit) capsule (Vitamin D3) gabapentin 300 mg tablet 300 mg PO BID neuropathy 11/12/20 01/14/21 History liraglutide 0.6 mg/0.1 mL (18 mg/3 18 mg subcut WE diabetes 11/12/20 11/12/20 History mL) subcutaneous pen injector (Victoza 2-Dudley) sildenafil 25 mg tablet (Viagra) 25 mg PO DAILY PRN PRN 12/27/20 Unknown History carvedilol 6.25 mg tablet 3.125 mg PO BID blood pressure 01/13/22 02/21/22 05:30 History benzonatate 100 mg capsule 200 mg (2 x 100 mg) PO TID PRN PRN 08/14/22 Unknown Rx Cough #20 CAPSULES doxycycline monohydrate 100 mg 100 mg PO BID #14 CAPSULES 08/14/22 Unknown Rx capsule prednisone 10 mg tablet 10 mg PO UD #33 tabs 08/14/22 Unknown Rx Allergy/AdvReac Type Severity Reaction Status Date / Time empagliflozin Allergy Mild PT UNSURE Verified 04/26/24 20:06 OF REACTION glipizide Allergy Mild PT UNSURE Verified 04/26/24 20:06 OF REACTION trazodone Allergy Mild PT UNSURE Verified 04/26/24 20:06 OF REACTION Family History Mother Diabetes Surgical History History of ventral hernia repair History of esophagogastroduodenoscopy (EGD) History of cardiac catheterization History of coronary artery stent placement Hx of heart bypass surgery History of colostomy reversal History of colostomy Hx of CABG Social History Smoking Status: Former smoker alcohol intake: never ROS ROS ED Constitutional Constitutional ED: Denies chills or fever(s) Eyes Eyes: Denies change in vision or diplopia ENT ENT ED: Denies rhinorrhea or sore throat Cardiovascular Cardiovascular: Reports leg edema; Denies chest pain or palpitations Respiratory/Chest Respiratory/Chest: Denies cough or dyspnea Gastrointestinal Gastrointestinal: Reports abdominal pain and nausea; Denies diarrhea, melena or vomiting Genitourinary Genitourinary ED: Denies dysuria or hematuria Musculoskeletal Musculoskeletal: Denies back pain or neck pain Integumentary Denies abscess or rash Neurologic Neurologic: Denies headache(s), paresthesias or weakness Psychiatric Psychiatric: Denies anxiety or suicidal thoughts EXAM Physical Exam Const Vital Signs: 04/26/24 20:06 04/26/24 23:02 04/27/24 01:00 Temperature 97.2 F L Temperature Source Temporal Pulse Rate 53 L 74 70 Respiratory Rate 20 H 20 H 16 Blood Pressure 167/105 H 138/82 H 121/51 H Blood Pressure Mean 125 100 74 Pulse Ox 98 96 95 Oxygen Delivery Method Room Air Room Air Room Air Positive well nourished, well developed and obese General Appearance ED: well developed and NAD Nutritional Appearance: obese HEENT Reports moist mucous membranes normocephalic and atraumatic Eyes PERRL and EOMs intact bilaterally Neck full ROM and supple Resp normal respiratory effort and clear to auscultation bilaterally Cardio regular rate, regular rhythm and no murmurs GI non-distended GI Narrative: Tender right upper quadrant with positive De La Torre's. No other areas of tenderness. Auscultation: normoactive bowel sounds Palpation: soft Back/Spine no CVA tenderness General Back: other FROM Extremity normal to inspection General Extremety ED: Yes edema; Negative for pulses abnormal or tenderness General Extremity: edema bilateral lower extremity Details: moderate; Negative for pulses abnormal Neuro oriented x3, CN's II-XII intact bilaterally and no sensory deficits noted Sensorium / Orientation: awake and alert Motor Exam: strength 5/5 throughout Psych mental status grossly normal and thought process normal Skin no rashes or lesions noted and no wounds MDM MDM MDM Narrative Medical decision making narrative: Given the patient's symptoms and exam my concern is for acute cholecystitis. Labs sent, he has a significant leukocytosis but without a leftward shift or bandemia, LFTs are normal but his lipase is nonspecifically slightly elevated. I reviewed the images of the right upper quadrant ultrasound as well as the rep ort which I agree with, does not show any stones or gallbladder wall thickening or pericholecystic fluid or dilated common bile duct, but there is sonographic De La Torre's. I discussed all this with surgery Dr. Jerez he recommended getting a CT given all of that. It is negative for anything acute. I reviewed the images and the report which I agree with. On reexamining the patient, he is feeling mu ch better after pain and nausea medications however he is still quite tender in the right upper quadrant nowhere else. Discussed again with surgery, who states that under the circumstances he does not need emergency surgery, and it is unclear if this is biliary in etiology or not but he agrees that the lipase is nonspecifically elevated and since he does not drink alcohol that is suspicious, and supports having him admitted for further workup, holding off on antibiotics right now since we do not have any convincing evidence of cholangitis at this time. Discussed with hospitalist. Lab Data Attestation: I reviewed the patient's lab results. Labs: Laboratory Results - last 24 hr 04/26/24 04/26/24 20:40 23:53 WBC 15.5 H RBC 5.12 Hgb 15.9 Hct 44.5 MCV 86.9 MCH 31.1 MCHC 35.7 RDW Std Deviation 42.7 RDW Coeff of Cornelio 13.4 Plt Count 251 MPV 10.3 Immature Gran % (Auto) 0.300 Neut % (Auto) 64.4 Lymph % (Auto) 24.4 [place] % (Auto) 8.4 Eos % (Auto) 2.0 Baso % (Auto) 0.5 Absolute Neuts (auto) 10.0 H Absolute Lymphs (auto) 3.79 Nucleated RBC % 0 Sodium 137 Potassium 3.6 Chloride 102 Carbon Dioxide 26.0 Anion Gap 9 BUN 25 H Creatinine 1.07 Estim Creat Clear Calc 88.33 Est GFR (MDRD) Af Amer 89 Est GFR (MDRD) Non-Af 73 BUN/Creatinine Ratio 23.4 H Glucose 117 H Calcium 9.2 Total Bilirubin 1.00 AST 23 ALT 31 Alkaline Phosphatase 77 Total Protein 7.1 Albumin 3.5 Globulin 3.6 Albumin/Globulin Ratio 1.0 Lipase 99 H Urine Color Yellow Urine Clarity Sl. Cloudy Urine pH 6.0 Ur Specific [place] 1.020 Urine Protein 30 H Urine Glucose (UA) Normal Urine Ketones Negative Urine Occult Blood Negative Urine Nitrite Negative Urine Bilirubin Negative Urine Urobilinogen 1 H Ur Leukocyte Esterase Negative Urine RBC 0 SEEN Urine WBC 0 SEEN Ur Squamous Epith Cells 0-5 SEEN Urine Bacteria 0 SEEN Urine Mucus 0 SEEN Radiography Diagnostic Testing: Clinical Impression(s) from Imaging Studies Gallbladder Ultrasound 04/26/24 23:24 IMPRESSION: 1. Positive sonographic De La Torre''s sign however no evidence of gallstones, gallbladder wall thickening or pericholecystic fluid to suggest acute cholecystitis. 2. Fatty infiltration of the liver and hepatomegaly. Electronically Signed: Antione Schuster DO at 0:17 EST , Abdomen/Pelvis CT 04/27/24 00:24 IMPRESSION: 1. No acute abnormality. 2. Fatty infiltration of the liver and hepatomegaly. Electronically Signed: Antione Schuster DO at 1:17 EST , Management Discussion w/another healthcare provider: Hospitalist and Medicaid Plan Compliance Director ([facility]) Discharge Plan Triage Chief Complaint: Abd Pain ED Provider: Saeid Hart Dx/Rx/DC Orders Clinical Impression: Abdominal pain, acute, right upper quadrant, Leukocytosis, Elevated lipase Prescriptions: No Action sildenafil [Viagra] 25 mg tablet 25 mg PO DAILY PRN (Reason: PRN) Rx Instructions: administer 30 minutes to 4 hours before activity metformin 1,000 MG tablet 1,000 mg PO BIDCM lisinopril 5 MG tablet 40 mg PO DAILY albuterol sulfate [ProAir HFA] 1 PUFF inhaler 1 puff inhalation BID PRN (Reason: Sob &/Or Wheezing) Spiriva with HandiHaler 1 PUFF inhaler 1 puff inhalation DAILY insulin glargine [Lantus Solostar U-100 Insulin] 100 UNITS/ML insulin pen 60 units subcut BID aspirin 81 mg Tablet 81 mg PO DAILY Patient Comments: STOP 5 DAYS PRIOR gabapentin 300 mg Tablet 300 mg PO BID budesonide-formoterol [Symbicort] 80-4.5 mcg/actuation Hfa Aerosol Inhaler 2 puff INHALATION BID cholecalciferol (vitamin D3) [Vitamin D3] 50 mcg (2,000 unit) Capsule 50 mcg PO DAILY Victoza 2-Dudley 0.6 mg/0.1 mL (18 mg/3 mL) Pen Injector 18 mg SUBCUT WE Rx Instructions: 18 units in the am carvedilol 6.25 mg tablet 3.125 mg PO BID prednisone 10 mg tablet 10 mg PO UD Qty: 33 0RF Rx Instructions: Take 4 tablets daily for 3 days, then 3 daily for 3 days, then 2 daily for 3 days, then 1 a day for 3 days then 1 QOD for 3 doses. benzonatate [benzonatate] 100 mg capsule 200 mg PO TID PRN PRN (Reason: Cough) Qty: 20 0RF doxycycline monohydrate 100 mg capsule 100 mg PO BID Qty: 14 0RF [facility] Provider[facility] [Primary Care Provider] - Print Language: Occitan Disposition Disposition: Acute Care Hospital [facility]
--- NOTE | 2024-04-26 23:24 | US_ITS ---
INDICATION: pain, nausea EXAMINATION: Ultrasound US Abdomen RUQ (limited) TECHNIQUE: Gilman scale and color doppler imaging was performed of the right upper quadrant. COMPARISON: None. FINDINGS: LIVER: Diffuse increased echogenicity. Hepatomegaly with the right lobe length measuring 20.6 cm. No evidence of a mass. No intrahepatic duct dilation. GALLBLADDER: Moderately distended. No evidence of a stone or sludge. Normal wall thickness. No pericholecystic fluid. Positive sonographic De La Torre''s sign. COMMON BILE DUCT: Normal measuring 6 mm in diameter. PANCREAS: Not well-visualized due to overlying bowel gas. RIGHT KIDNEY: Unremarkable. FREE FLUID: No free fluid in the right upper quadrant. US/Gallbladder IMPRESSION: 1. Positive sonographic De La Torre''s sign however no evidence of gallstones, gallbladder wall thickening or pericholecystic fluid to suggest acute cholecystitis. 2. Fatty infiltration of the liver and hepatomegaly. Electronically Signed: Antione Schuster DO at 0:17 EST ,
[2024-04-27] VITALS (18 sets, daily range): BP systolic 98–150; BP diastolic 51–79; PULSE 43–87; RESP 15–18; TEMP 36.1–36.8; O2SAT 92–97; BMI 33.3
--- NOTE | 2024-04-27 | GASB_PTH ---
PATIENT: KINGS CEBALLOS LOC: [id number] U#:[id number] AGE/SX: 69/M ROOM: [facility] [place] RE04/27/[address]: Dr. Darrel Woodall DO : 1955 BED: 1 DIS: 04/28/2024 SPEC #: [id number] RECD: 04/27/24 13:38 STATUS: VERONICA CHRISTINE #: [id number] MONICA: 04/27/24 00:[address]: Clifford Alvares DEPT: SURGICAL PATHOLOGY RECD BY: Valentino Hsieh ENTERED: 04/27/24 13:39 SP TYPE: Gastric Bx OTHR DR: Dr. Primitivo Franks, DO Dr. Justo Serna, DO Dr. Clifford Alvares MD [facility] Tissues: A - Duodenum, NOS B - Gastric mucous membrane C - Gastric mucous membrane Procedures: Special Stain Group I Surgery Specimen Level IV Alcian Blue/PAS (control) Comments: @ Ordering doctor for SUIV edited from to @ by XIAO at 04/27/24 1409 @ Submitting doctor edited from to @ by XIAO at 04/27/24 1400 HEADER OPERATION: EGD and biopsy PRE-OP DIAGNOSIS: Abdominal pain TISSUE SUBMITTED: A- Duodenal biopsy, B- Antral biopsy, C- Gastroesophageal junction biopsy MICROSCOPIC DIAGNOSIS A. Duodenum, biopsy: Acute duodenitis, focal with associated ulceration. B. Gastric antrum, biopsy: Minimal chronic inflammation. See comment. C. Gastroesophageal junction, biopsy: Focal goblet cell metaplasia. No evidence of dysplasia. See comment. 04/29/2024 COMMENT B. The results of immunohistochemistry for Helicobacter pylori will be reported separately ([id number]). C. Alcian blue/PAS stain with matched control was used in the evaluation of this case. MICROSCOPIC DESCRIPTION Slides are reviewed. GROSS DESCRIPTION A. Received in fixative is one container labeled with the patient's name and designated Duodenal biopsy. The specimen consists of multiple irregular fragments of light hernandez soft tissue that in aggregate measure 0.5 x 0.5 x 0.1 cm. The specimen is totally submitted in one cassette. B. Received in fixative is one container labeled with the patient's name and designated Antral biopsy. The specimen consists of one irregular fragment of light hernandez soft tissue that measures 0.5 x 0.3 x 0.1 cm. The specimen is totally submitted in one cassette. C. Received in fixative is one container labeled with the patient's name and designated GE junction biopsy. The specimen consists of one irregular fragment of light hernandez soft tissue that measures 0.3 x 0.3 x 0.1 cm. The specimen is totally submitted in one cassette. 04/27/2024 TC:3 CPT:[id number]
[2024-04-27 00:18] LABS: Lipase 99 U/L (13-75)
[2024-04-27] MEDS: Ketorolac 15 MG/ML Vial 10 MG IV (00:22)
[2024-04-27] MEDS: Ondansetron 4 MG/2 ML Vial IV (00:22)
[2024-04-27] MEDS: Morphine 4 MG/ML Syringe IV (00:22)
--- NOTE | 2024-04-27 00:24 | CT_ITS ---
INDICATION: RUQ pain EXAMINATION: CT Abdomen And Pelvis W/ Contrast Injection TECHNIQUE: Helically acquired images were obtained of the abdomen and pelvis with sagittal and coronal reconstructed images. Individualized dose optimization techniques were used for this CT. IV contrast dosage and agent: 100 mL of Isovue-370. Oral contrast: None. COMPARISON: 10/28/2014 CT. FINDINGS: VESSELS: No abdominal aortic aneurysm or dissection. LIVER: No evidence of a mass. No intrahepatic or extrahepatic biliary duct dilation. Fatty infiltration of the liver and hepatomegaly. GALLBLADDER: No calcified stones. No evidence of cholecystitis. PANCREAS: No focal solid or cystic mass. No evidence of pancreatitis. SPLEEN: Normal. ADRENAL GLANDS: Normal. KIDNEYS AND URETERS: 1 mm left renal stone. No hydronephrosis or hydroureter. No significant asymmetric perinephric stranding. URINARY BLADDER: Unremarkable. BOWEL: No evidence of diverticulosis or diverticulitis. Appendix appears normal. No evidence of bowel obstruction. REPRODUCTIVE ORGANS: No evidence of a pelvic mass. PERITONEUM: No intraabdominal free fluid or free air. LYMPH NODES: No pathologically enlarged mesenteric or retroperitoneal lymph nodes. ABDOMINAL WALL: Small fat-containing umbilical hernia. BONES: No acute abnormality. LOWER CHEST: Visualized lung bases are unremarkable. CT/Abdomen/Pelvis W IV Cont ONLY IMPRESSION: 1. No acute abnormality. 2. Fatty infiltration of the liver and hepatomegaly. Electronically Signed: Antione Schuster DO at 1:17 EST ,
[2024-04-27 00:36] LABS: Bacteria 0 SEEN /hpf (None Seen); Mucous, Urine 0 SEEN /hpf (<or=2+); Red Blood Cells-Urine 0 SEEN /hpf (0-5); White Blood Cells 0 SEEN /hpf (0-5)
[2024-04-27 00:44] LABS: Color, Urine Yellow (Yellow); Glucose, Dipstick Normal (Normal); Ketone-Dipstick Negative (Negative); Leukocyte Esterase-Dipstick Negative /ul (Negative); Nitrite-Dipstick Negative (Negative); Occult Blood-Urine Negative /ul (Negative); Protein-Dipstick 30 mg/dl (Negative); Urine Bilirubin Dipstick Negative (Negative); Urine Clarity Sl. Cloudy (Clear); Urine Urobilinogen 1 mg/dl (Normal)
[2024-04-27 01:22] LABS: Squamous Epithelial Cells - UA 0-5 SEEN /hpf (0-5)
--- NOTE | 2024-04-27 02:20 | HP.PCM.HOS_ITS ---
HPI - General General Date of Admission: 04/27/24 Date of Service: 04/27/24 Chief Complaint: Right upper quadrant pain HPI Narrative KINGS CEBALLOS, is a 69 M who presented to [facility] ED on 04/27/2024 with right upper quadrant pain. Patient had onset of right upper quadrant colicky pain radiating up to the right chest shoulder area starting on 04/26. It gradually worsened over the course of the day. He did not eat anything yesterday due to this ongoing pain and poor appetite. Has never had pain like this before. Denies any associated fevers, chills or jaundice. Pain did not improve with belching or passing gas. Patient discussed this with his who noted he could have new gallbladder issues so he came in for further evaluation. On arrival to the ED he was afebrile and hemodynamically stable. Labs notable for WBC count 15, lipase 99, otherwise unremarkable. Gallbladder ultrasound had a positive sonographic De La Torre sign but showed no evidence of gallstones, gallbladder wall thickening or pericholecystic fluid to suggest acute cholecystitis; also showed fatty infiltration of the liver and hepatomegaly. Case was discussed with on-call general surgery who recommended CT abdomen pelvis for further evaluation. CT again showed fatty liver disease but otherwise no acute abnormalities. Patient was given doses of IV Toradol, IV morphine and IV Zofran with good improvement in his pain. Given patient's presentation with leukocytosis and elevated lipase of unclear etiology, surgery recommended that patient be admitted for further evaluation. Hospitalist was then contacted for admission. I saw patient at bedside in the ED. was on the phone listening in on the conversation. Patient was sitting up comfortably in bed, conversing normally, in no acute distress. Patient has very mild right upper quadrant pain at this time he states. He denies any fevers or chills. Denies any other pain or discomfort. Patient has history of type 2 diabetes mellitus and has been on Ozempic for just over a year. He has reportedly lost 130 pounds since then. He was escalated up to the highest dosage for Ozempic and has been on this dosage for at least a few months he states. Denies any previous issues with abdominal cramping or discomfort with the Ozempic. No other acute concerns at this time. Will be admitted for further management. [facility] Medical History History of ventral hernia Wears glasses History of steroid therapy Insulin dependent diabetes mellitus Ambulates with cane High cholesterol Back pain Gastric reflux Former smoker Shortness of breath on exertion Leg cramps History of edema Cardiology follow-up encounter Ventral incisional hernia History of colitis CPAP (continuous positive airway pressure) dependence Sleep apnea Myocardial infarct Diabetes COPD (chronic obstructive pulmonary disease) Asthma Coronary artery disease Hypertension Home Medications ?Medication ?Instructions ?Recorded ?Last Taken ?Type albuterol sulfate 90 mcg/actuation 1 puff inhalation BID PRN Sob &/Or 10/28/14 02/21/22 05:30 History aerosol inhaler (ProAir HFA) Wheezing insulin glargine 100 unit/mL (3 40 unit subcut DAILY diabetes 10/28/14 11/12/20 History mL) subcutaneous pen (Lantus Solostar U-100 Insulin) lisinopril 5 mg tablet 40 mg PO DAILY blood pressure 10/28/14 02/21/22 05:30 History metformin 1,000 mg tablet 1,000 mg PO BIDCM diabetes 10/28/14 11/12/20 History aspirin 81 mg tablet 81 mg PO DAILY heart health 11/12/20 02/15/22 History cholecalciferol (vitamin D3) 50 50 mcg PO DAILY supplement 11/12/20 11/12/20 History mcg (2,000 unit) capsule (Vitamin D3) gabapentin 300 mg tablet 300 mg PO TID neuropathy 11/12/20 01/14/21 History sildenafil 25 mg tablet (Viagra) 25 mg PO DAILY PRN PRN 12/27/20 Unknown History carvedilol 6.25 mg tablet 3.125 mg PO BID blood pressure 01/13/22 02/21/22 05:30 History benzonatate 100 mg capsule 200 mg (2 x 100 mg) PO TID PRN PRN 08/14/22 Unknown Rx Cough #20 CAPSULES atorvastatin 80 mg tablet 80 mg PO QHS cholesterol 04/27/24 Unknown History icosapent ethyl 1 gram capsule 2 g PO BID triglycerides 04/27/24 Unknown History magnesium oxide 420 mg tablet 420 mg PO DAILY supplement 04/27/24 Unknown History semaglutide 1 mg/dose (4 mg/3 mL) 1 mg subcut QWEEK diabetic 04/27/24 04/20/24 History subcutaneous pen injector (Ozempic) Allergy/AdvReac Type Severity Reaction Status Date / Time empagliflozin Allergy Mild PT UNSURE Verified 04/26/24 20:06 OF REACTION glipizide Allergy Mild PT UNSURE Verified 04/26/24 20:06 OF REACTION trazodone Allergy Mild PT UNSURE Verified 04/26/24 20:06 OF REACTION Family History Mother Diabetes Surgical History History of ventral hernia repair History of esophagogastroduodenoscopy (EGD) History of cardiac catheterization History of coronary artery stent placement Hx of heart bypass surgery History of colostomy reversal History of colostomy Hx of CABG Social History Smoking Status: Former smoker alcohol intake: never ROS Constitutional Constitutional: Denies chills, fatigue, fever(s) or weakness Cardiovascular Cardiovascular: Denies chest pain Respiratory/Chest Respiratory/Chest: Denies shortness of breath at rest Gastrointestinal Gastrointestinal: Reports abdominal pain; Denies constipation, diarrhea, dyspepsia, nausea or vomiting Genitourinary Genitourinary: Denies dysuria Musculoskeletal Musculoskeletal: Denies arthralgias or myalgias Vital Signs Vital Signs Vital Signs: 04/26/24 20:06 04/26/24 23:02 04/27/24 01:00 Temperature 97.2 F L Temperature Source Temporal Pulse Rate 53 L 74 70 Respiratory Rate 20 H 20 H 16 Blood Pressure 167/105 H 138/82 H 121/51 H Blood Pressure Mean 125 100 74 Pulse Ox 98 96 95 Oxygen Delivery Method Room Air Room Air Room Air Weight Weight: 120.1 kg Body Mass Index (BMI) 36.9 Physical Exam Const alert, oriented x3 and no apparent distress Constitutional Narrative: Elderly male, obese, mildly fatigued appearing but otherwise sitting up comfortably in bed, conversing normally, in no acute distress. General Appearance: cooperative and comfortable HEENT normocephalic, head/scalp atraumatic, hearing grossly normal bilaterally, nasal mucous membranes and turbinates normal and moist oral mucous membranes Eyes PERRL, EOMs intact bilaterally and conjunctivae normal Neck full ROM Chest inspection of chest normal Resp normal respiratory effort, normal air movement, no use of accessory muscles and clear to auscultation bilaterally Cardio regular rate, regular rhythm, no murmurs and peripheral pulses 2+ throughout GI normal to inspection, nondistended, normoactive bowel sounds, soft to palpation and non-distended GI Narrative: Very mild tenderness to palpation in right upper quadrant. Abdomen otherwise soft, nondistended and with normal bowel sounds. Back/Spine normal ROM Extremity normal to inspection, full ROM and no pedal edema Skin no rashes or lesions noted Psych mental status grossly normal Results Lab / Micro Data 04/26/24 20:40 04/26/24 20:40 Labs: Laboratory Results - last 24 hr 04/26/24 20:40: WBC 15.5 H, RBC 5.12, Hgb 15.9, Hct 44.5, MCV 86.9, MCH 31.1, MCHC 35.7, RDW Std Deviation 42.7, RDW Coeff of Cornelio 13.4, Plt Count 251, MPV 10.3, Immature Gran % (Auto) 0.300, Neut % (Auto) 64.4, Lymph % (Auto) 24.4, Humphreys % (Auto) 8.4, Eos % (Auto) 2.0, Baso % (Auto) 0.5, Absolute Neuts (auto) 10.0 H, Absolute Lymphs (auto) 3.79, Nucleated RBC % 0, Sodium 137, Potassium 3.6, Chloride 102, Carbon Dioxide 26.0, Anion Gap 9, BUN 25 H, Creatinine 1.07, Estim Creat Clear Calc 88.33, Est GFR (MDRD) Af Amer 89, Est GFR (MDRD) Non-Af 73, BUN/Creatinine Ratio 23.4 H, Glucose 117 H, Calcium 9.2, Total Bilirubin 1.00, AST 23, ALT 31, Alkaline Phosphatase 77, Total Protein 7.1, Albumin 3.5, Globulin 3.6, Albumin/Globulin Ratio 1.0, Lipase 99 H 04/26/24 23:53: Urine Color Yellow, Urine Clarity Sl. Cloudy, Urine pH 6.0, Ur Specific Trilla 1.020, Urine Protein 30 H, Urine Glucose (UA) Normal, Urine Ketones Negative, Urine Occult Blood Negative, Urine Nitrite Negative, Urine Bilirubin Negative, Urine Urobilinogen 1 H, Ur Leukocyte Esterase Negative, Urine RBC 0 SEEN, Urine WBC 0 SEEN, Ur Squamous Epith Cells 0-5 SEEN, Urine Bacteria 0 SEEN, Urine Mucus 0 SEEN Imaging Radiology Impression Gallbladder Ultrasound 04/26/24 23:24 IMPRESSION: 1. Positive sonographic De La Torre''s sign however no evidence of gallstones, gallbladder wall thickening or pericholecystic fluid to suggest acute cholecystitis. 2. Fatty infiltration of the liver and hepatomegaly. Electronically Signed: Antione Schuster, at 0:17 EST , Abdomen/Pelvis CT 04/27/24 00:24 IMPRESSION: 1. No acute abnormality. 2. Fatty infiltration of the liver and hepatomegaly. Electronically Signed: Antione Schuster, at 1:17 EST , Assessment & Plan Assessment/Plan (1) Abdominal pain, acute, right upper quadrant: (2) Leukocytosis: (3) Elevated lipase: PLAN: Plan Patient is a 69-year-old male who presented [facility] ED on 04/27/2024 with right upper quadrant pain. 1. Right upper quadrant pain ? Admit under inpatient status to [facility]. Unclear etiology for RUQ pain at this point. Gallbladder ultrasound and CT abdomen pelvis showed no evidence of acute gallbladder, liver, pancreatic or biliary tree pathology. Is notably on Ozempic which could contribute to pain like this but has been on Ozempic for over a year so would be odd to have acute symptoms like this. Will order HIDA scan for further evaluation. General surgery aware of the patient, can formally consult them if needed. Can also consider GI consult if needed. 2. Leukocytosis ? WBC count 15 on admit. Afebrile and hemodynamically stable. Is not infectious appearing. No evidence of infectious process on imaging. May be secondary to acute stress state in setting of pain. Follow-up a.m. WBC count. Will hold on any antibiotics for now. 3. Elevated lipase ? Lipase level 99 on admit. Unclear etiology. No findings of acute pancreatitis on CT abdomen pelvis. Patient with minimal pain at this point, very low concern for acute pancreatitis. Chronic medical conditions: ? Obesity: BMI 33 on admit. Encouraged continued lifestyle modifications. Complicates hospital course, care and prognosis. ? Type 2 diabetes mellitus with neuropathy: Current home regimen confirmed with is Lantus 40 units daily, Ozempic 2 mg weekly and metformin 1000 mg twice daily. Will start Lantus 35 units daily and sliding scale insulin with meals while inpatient, adjust as needed. Continue home gabapentin. ? Hypertension: Normotensive in the ED. Continue home Coreg, hold home lisinopril for now, restart when able. ? Hyperlipidemia: Continue home statin. ? COPD: Stable on room air, not in acute exacerbation. Continue home albuterol as needed. DVT prophylaxis: Lovenox CODE STATUS: Full code, verified Expected disposition: Home, 2 to 3 days Total clinical time spent by myself addressing the patient's medical issues, reviewing all the data, and collaborating with patient's care team: 55 minutes. Charges/Coding Visit Charges Inpatient E&M: 20708 Init Hosp L2
--- NOTE | 2024-04-27 02:25 | NM_ITS ---
CLINICAL: 69-year-old male with history of right upper quadrant abdominal pain. RADIONUCLIDE HEPATOBILIARY SCINTIGRAPHY COMPARISON: Abdominal ultrasound report 04/26/2024, CT of the abdomen-pelvis report 04/27/2024 FINDINGS: Following the intravenous administration of 5.7 mCi of 99m Tc Mebrofenin, hepatobiliary images reveal: 1. Relatively prompt and homogeneous radiopharmaceutical concentration is noted by a normal sized liver. No parenchymal defects are identified. 2. Gallbladder activity is identified at 10 minutes post radiopharmaceutical administration. 3. Small intestinal tract is observed at 30 minutes following tracer injection. 4. Washout of the radiopharmaceutical by the hepatic parenchyma appears qualitatively normal. Cholecystokinin (0.02 ug/kg) was administered intravenously over a 30-minute period. The post CCK gallbladder ejection fraction calculated at 20 minutes following Cholecystokinin administration was noted to be 16.0 % (normal greater than 35%). NV/Hepatobilliary Img w/Pharm Int IMPRESSION: 1. ABNORMAL 99m Tc Mebrofenin hepatobiliary imaging examination with Cholecystokinin. A. A gallbladder ejection fraction calculated to be less than 35% following the administration of Cholecystokinin is consistent with the presence of functional hepatobiliary disease (gallbladder and/or sphincter of Oddi dyskinesia) and/or organic hepatobiliary disease (chronic acalculous cholecystitis and/or cystic duct syndrome) in patients with intermediate to high pretest probabilities of hepatobiliary illness. (Marta Bowling et al, Journal of Nuclear Medicine 32:1695, 1991). Electronically Signed: Clifford Borrego DO at 9:30 EST ,
[2024-04-27 07:07] LABS: Bedside Glucose 90 mg/dL (74-106)
[2024-04-27 07:42] LABS: Hematocrit 42.4 % (40-54); Hemoglobin 14.5 g/dL (13.0-16.5); Mean Corp Hgb Conc 34.2 g/dL (32-36); Mean Corpuscular Hgb 30.2 pg (27.0-32.0); Mean Corpuscular Volume 88.3 fL (80-94); Mean Platelet Vol. 10.4 fl (6.2-12.0); Platelet Count 205 K/mm3 (150-450); RBC Distribution Width CV 13.5 % (11.6-14.6); RBC Distribution Width SD 43.8 fl (35.1-43.9); White Blood Count 11.3 K/mm3 (4.4-11.0)
[2024-04-27 08:40] LABS: ALB/GLOB Ratio 1.1 RATIO (0.9-2.4); AST(SGOT) 20 U/L (15-37); Alanine Aminotransfer ALT/SGPT 23 U/L (16-61); Albumin, Serum 3.2 g/dL (3.2-5.0); Alkaline Phosphatase 75 U/L (45-117); Anion Gap 7 (5-15); BUN 28 mg/dL (7-18); BUN/Creat Ratio 26.4 RATIO (10-20); Calcium,Total 8.6 mg/dL (8.5-10.1); Chloride 104 mmol/L (98-107); Creatinine, Serum 1.06 mg/dL (0.70-1.30); EST Glomerular Filtration Rate 74 mL/min (>60); Est Glom Filt Rate - Afr Amer 90 mL/min (>60); Estimated Creatinine Clearance 84.69 ml/min; Glucose 85 mg/dL (74-106); Potassium 3.6 mmol/L (3.5-5.1); Protein, Total 6.2 g/dL (6.4-8.2); Sodium Level 138 mmol/L (136-145)
--- NOTE | 2024-04-27 09:27 | EKG12_ITS ---
Test Reason : P Blood Pressure : */* mmHG Vent. Rate : 43 BPM Atrial Rate : * BPM P-R Int : * ms QRS Dur : 98 ms QT Int : 444 ms P-R-T Axes : * -41 102 degrees QTcB Int : 375 ms Marked sinus bradycardia Left axis deviation Inferior infarct (cited on or before 25-Aug-2008) Anterolateral infarct (cited on or before 25-Aug-2008) Abnormal ECG Confirmed by Aldo Herbert ([id number]), videotape editor JADE BARRIENTOS ([id number]) on 04/27/2024 2:15:41 PM Referred By: AUSTEN Confirmed By: Aldo Herbert
[2024-04-27] MEDS: Ipratropium/Albuterol Sulfate 3 ML AMPUL.NEB INHALATION ×2 (09:31→12:53)
[2024-04-27 10:02] LABS: Hemoglobin A1c 6.1 % (3.8-5.6)
--- NOTE | 2024-04-27 10:02 | PCM.PRE.AN2 ---
ASA Classification* ASA Classification ASA Classification: 3 Assessment & Plan Anesthesia* Anesthesia Assessment Anesthesia Assessment: Discussed sedation and/or anesthesia options, risks, benefits, and alternatives with patient/parents/legal guardian/POA. Questions invited. The patient/parents/legal guardian/POA seems to understand and agrees to proceed with anesthesia plan. Reviewed the physical assessment, medical history, allergy history and patient home medications list prior to surgery/procedure/anesthetic and documented any changes. Performed airway and anesthesia risk assessments. Anesthesia Type Anesthesia Type: MAC Anesthesia Focused Assessment* Temperature: 97.3 F Pulse Rate: 43 Blood Pressure: 140/64 Respiratory Rate: 16 Pulse Ox: 94 Airway Assessment Mouth opens: >3 cm Mallampati Score: II Focused Labs Anesthesia Preop lab: CBC WBC 11.3 K/mm3 (4.4-11.0) H 04/27/24 06:36 RBC 4.80 M/mm3 (4.6-6.2) 04/27/24 06:36 Hgb 14.5 g/dL (13.0-16.5) 04/27/24 06:36 Hct 42.4 % (40-54) 04/27/24 06:36 Plt Count 205 K/mm3 (150-450) 04/27/24 06:36 CHEMISTRY Potassium 3.6 mmol/L (3.5-5.1) 04/27/24 06:36 Sodium 138 mmol/L (136-145) 04/27/24 06:36 BUN 28 mg/dL (7-18) H 04/27/24 06:36 Creatinine 1.06 mg/dL (0.70-1.30) 04/27/24 06:36 Glucose 85 mg/dL (74-106) 04/27/24 06:36 POC Glucose 90 mg/dL (74-106) 04/27/24 06:42 COAG Pre-Assessment Diagnosis/Proposed Procedure Planned Operative Procedure(s): EGD Anesthesia History 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 02/19/22 12:13 Any Problems With Anesthesia No 02/19/22 12:13 Cholinesterase deficiency No 02/19/22 12:13 You/Your Family Experience No 02/19/22 12:13 fever (hyperthermia) with Relationship Recent Exposure to Contagious No 02/21/22 07:16 Disease Does patient have nerve No 02/19/22 12:13 stimulator Patient instructed to have device shut off --Does patient have Pacemaker or ICD? When Was Last Pacemaker Check QUESTION #4 FULL TEXT: You/Your Family Experience fever (hyperthermia) with Anesthesia Last Oral Intake Last Oral intake: Last Oral Intake NPO since Meds taken in AM with sips of water? Meds patient instructed to take am of surgery PONV PONV - drive shaft and steering post repairer: PONV - drive shaft and steering post repairer Female HX of Motion Sickness HX of N/V After Surgery Non-Smoker Duration of Surgery greater than 60 minutes Number of Risk Factors PONV Score Height & Weight Height & Weight: Anesthesia: Height & Weight Height 5 ft 11 in 04/27/24 02:48 Weight: 108.4 kg 04/27/24 02:48 Body Mass Index (BMI) 33.3 04/27/24 02:48 Respiratory Assessment Respiratory Assessment - drive shaft and steering post repairer: Respiratory Tract Infection Hx - drive shaft and steering post repairer Hx Respiratory Tract Infection No 02/19/22 12:13 STOP Sleep Apnea STOP Sleep Apnea - drive shaft and steering post repairer: STOP Sleep Apnea - drive shaft and steering post repairer Hx Hypertension Yes 04/27/24 02:48 Hx Sleep Apnea No 04/27/24 02:48 CPAP Yes: NONCOMPLIANT 02/19/22 12:13 BIPAP No 02/19/22 12:13 Do you snore loudly (louder No 04/27/24 02:48 than talking or can be heard Do you often feel tired/ No 04/27/24 02:48 fatigued/ sleepy during daytime? Has anyone observed you stop No 04/27/24 02:48 breathing during sleep? STOP Results Negative 04/27/24 02:48 QUESTION #5 FULL TEXT : Do you snore loudly (louder than talking or can be heard through closed doors)? 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 Specify any problems Hx of Preganancy in last 3 N/A 04/27/24 02:48 Months Nurse Filling Out Transfusion [email or web address] 04/27/24 02:48 & Questions: Date: 04/27/24 04/27/24 02:48 Time: 03:47 04/27/24 02:48 Patient unable to answer at this time (ie. confused, unrespo /Reproduction History /Reproductive History - drive shaft and steering post repairer: /Reproductive Hx- drive shaft and steering post repairer Hx Now Gestational Age (in weeks): EDC: Hx Hx Para Hx Section SAB No 02/19/22 12:13 Active Medications Active Medications: Current Medications Generic Name Dose Route Start Last Admin Trade Name Freq PRN Reason Stop Dose Admin Acetaminophen 650 mg 04/27/24 03:42 Acetaminophen 325 Mg Tablet PO Q6H PRN PRN Pain 1-10 Or Fever>100.7 Albuterol Sulfate 2.5 mg 04/27/24 03:42 Albuterol 2.5 Mg/3 Ml Vial.Neb. INHALATION Q4H PRN PRN Sob &/Or Wheezing Albuterol/Ipratropium 3 ml 04/27/24 06:00 04/27/24 09:31 Ipratropium/Albuterol Sulfate 3 Ml Ampul.Neb INHALATION 3 ml Q6HWA.RT JEN Administration Aspirin 81 mg 04/27/24 08:00 04/27/24 09:04 Aspirin 81 Mg Tab.Chew PO [facility] Carvedilol 3.125 mg 04/27/24 08:00 04/27/24 09:22 Carvedilol 3.125 Mg Tablet PO Not [facility] Protocol Enoxaparin Sodium 40 mg 04/27/24 10:00 04/27/24 09:22 Enoxaparin 40 Mg/0.4 Ml Syringe SC Not Given DAILY [facility] Gabapentin 300 mg 04/27/24 10:00 04/27/24 09:23 Gabapentin 300 Mg Capsule PO Not Given BID [facility] Glucagon 1 mg 04/27/24 03:42 Glucagon 1 Mg/Ml Syringe IM X1 PRN Hypoglycemia Protocol Dextrose 250 mls @ 0 mls/hr 04/27/24 03:42 Dextrose 10%-Water IV .Q0M PRN HYPOGLYCEMIA Protocol As Directed Sodium Chloride 500 mls @ 15 mls/hr 04/27/24 03:51 IV .[id number] PRN Saline Flush Sodium Chloride 500 mls @ 15 mls/hr 04/27/24 03:51 IV .[id number] PRN Additional IVPB Infusion Insulin Glargine 35 unit 04/27/24 10:00 04/27/24 09:23 Insulin Glargine-Yfgn 100 Unit/Ml Pen SC Not Given DAILY JEN Protocol Insulin Human Lispro 0 unit 04/27/24 07:00 04/27/24 06:48 Insulin Lispro 100 Unit/Ml Insuln.Pen SC Not Given ACHS JEN Protocol Melatonin 3 mg 04/27/24 03:42 Melatonin 3 Mg Tablet PO QHS PRN PRN INSOMNIA Ondansetron HCl 4 mg 04/27/24 03:42 Ondansetron 4 Mg/2 Ml Vial IV Q8H PRN PRN NAUSEA/VOMITING Sodium Chloride 10 - 40 ml 04/27/24 03:51 0.9% Saline Lock 10 Ml Syringe IV UD PRN SALINE FLUSH PFSH Medical History History of ventral hernia Wears glasses History of steroid therapy Insulin dependent diabetes mellitus Ambulates with cane High cholesterol Back pain Gastric reflux Former smoker Shortness of breath on exertion Leg cramps History of edema Cardiology follow-up encounter Ventral incisional hernia History of colitis CPAP (continuous positive airway pressure) dependence Sleep apnea Myocardial infarct Diabetes COPD (chronic obstructive pulmonary disease) Asthma Coronary artery disease Hypertension Home Medications ?Medication ?Instructions ?Recorded ?Last Taken ?Type albuterol sulfate 90 mcg/actuation 1 puff inhalation BID PRN Sob &/Or 10/28/14 02/21/22 05:30 History aerosol inhaler (ProAir HFA) Wheezing insulin glargine 100 unit/mL (3 40 unit subcut DAILY diabetes 10/28/14 11/12/20 History mL) subcutaneous pen (Lantus Solostar U-100 Insulin) lisinopril 5 mg tablet 40 mg PO DAILY blood pressure 10/28/14 02/21/22 05:30 History metformin 1,000 mg tablet 1,000 mg PO BIDCM diabetes 10/28/14 11/12/20 History aspirin 81 mg tablet 81 mg PO DAILY heart health 11/12/20 02/15/22 History cholecalciferol (vitamin D3) 50 50 mcg PO DAILY supplement 11/12/20 11/12/20 History mcg (2,000 unit) capsule (Vitamin D3) gabapentin 300 mg tablet 300 mg PO TID neuropathy 11/12/20 01/14/21 History sildenafil 25 mg tablet (Viagra) 25 mg PO DAILY PRN PRN 12/27/20 Unknown History carvedilol 6.25 mg tablet 3.125 mg PO BID blood pressure 01/13/22 02/21/22 05:30 History benzonatate 100 mg capsule 200 mg (2 x 100 mg) PO TID PRN PRN 08/14/22 Unknown Rx Cough #20 CAPSULES atorvastatin 80 mg tablet 80 mg PO QHS cholesterol 04/27/24 Unknown History icosapent ethyl 1 gram capsule 2 g PO BID triglycerides 04/27/24 Unknown History magnesium oxide 420 mg tablet 420 mg PO DAILY supplement 04/27/24 Unknown History semaglutide 1 mg/dose (4 mg/3 mL) 1 mg subcut QWEEK diabetic 04/27/24 04/20/24 History subcutaneous pen injector (Ozempic) Allergy/AdvReac Type Severity Reaction Status Date / Time empagliflozin Allergy Mild PT UNSURE Verified 04/26/24 20:06 OF REACTION glipizide Allergy Mild PT UNSURE Verified 04/26/24 20:06 OF REACTION trazodone Allergy Mild PT UNSURE Verified 04/26/24 20:06 OF REACTION Family History Mother Diabetes Surgical History History of ventral hernia repair History of esophagogastroduodenoscopy (EGD) History of cardiac catheterization History of coronary artery stent placement Hx of heart bypass surgery History of colostomy reversal History of colostomy Hx of CABG Social History Smoking Status: Former smoker alcohol intake: never Review of Systems (Anesthesia) ROS Narrative System reviewed and no additional complaints, except as documented.
--- NOTE | 2024-04-27 10:32 | CON.PCM.SX_ITS ---
Assessment & Plan Assessment/Plan (1) Abdominal pain, acute, right upper quadrant: PLAN: Plan The patient is a 69-year-old male admitted with right upper quadrant pain. LFTs were normal. He did have a slightly elevated lipase. Gallbladder ultrasound had a positive De La Torre sign but otherwise was normal. CT scan was normal. HIDA scan showed an ejection fraction of 16%. I was asked by hospitalist to perform an EGD as part of the workup as well. He was concerned about elevated white blood cell count and possible of lymphoma and to rule out other GI related causes of right upper quadrant pain. At the time of this discussion the HIDA scan was not resulted. Patient may still have biliary dyskinesia causing his symptoms. At this point we will proceed with EGD to complete the workup and proceed accordingly from there. Patient and family are agreeable to this plan. HPI Consult Data Date of Consult: 04/27/24 HPI Narrative Reason for Consultation: Right upper quadrant pain/need for EGD HPI Narrative: KINGS CEBALLOS, is a 69 M who presents to the emergency department overnight with complaints of right upper quadrant pain. He stated that this pain started the day prior. He states that he has never had previous pain such as this. He states that it gradually worsened throughout the course the day. He did not notice any association with food. No fevers or chills. He did have some nausea. He presented to the emergency room last evening. He was seen evaluate by the ER staff. He was found to have white blood cell count of 15,000 and had a slightly elevated lipase at 99. Ultrasound of the right upper quadrant was performed and sonographically was normal however he had a positive De La Torre sign per this report. Surgery was contacted at this point and recommended CT scan. CT scan was unremarkable. LFTs were unremarkable. He was subsequently admitted to the hospitalist service. They ordered a HIDA scan for this morning and I was contacted by one of the hospitalist requesting EGD to be performed as well. Patient has been on Ozempic and his last dose was a week ago. He has lost about 130 pounds in the past year. Patient did undergo HIDA scan and results came back with an ejection fraction of 16%. In light of him being on Ozempic which slows the entire GI tract, this begs the question of validity of HIDA scan in this situation. [facility] Medical History History of ventral hernia Wears glasses History of steroid therapy Insulin dependent diabetes mellitus Ambulates with cane High cholesterol Back pain Gastric reflux Former smoker Shortness of breath on exertion Leg cramps History of edema Cardiology follow-up encounter Ventral incisional hernia History of colitis CPAP (continuous positive airway pressure) dependence Sleep apnea Myocardial infarct Diabetes COPD (chronic obstructive pulmonary disease) Asthma Coronary artery disease Hypertension Home Medications ?Medication ?Instructions ?Recorded ?Last Taken ?Type albuterol sulfate 90 mcg/actuation 1 puff inhalation BID PRN Sob &/Or 10/28/14 02/21/22 05:30 History aerosol inhaler (ProAir HFA) Wheezing insulin glargine 100 unit/mL (3 40 unit subcut DAILY diabetes 10/28/14 11/12/20 History mL) subcutaneous pen (Lantus Solostar U-100 Insulin) lisinopril 5 mg tablet 40 mg PO DAILY blood pressure 10/28/14 02/21/22 05:30 History metformin 1,000 mg tablet 1,000 mg PO BIDCM diabetes 10/28/14 11/12/20 History aspirin 81 mg tablet 81 mg PO DAILY heart health 11/12/20 02/15/22 History cholecalciferol (vitamin D3) 50 50 mcg PO DAILY supplement 11/12/20 11/12/20 History mcg (2,000 unit) capsule (Vitamin D3) gabapentin 300 mg tablet 300 mg PO TID neuropathy 11/12/20 01/14/21 History sildenafil 25 mg tablet (Viagra) 25 mg PO DAILY PRN PRN 12/27/20 Unknown History carvedilol 6.25 mg tablet 3.125 mg PO BID blood pressure 01/13/22 02/21/22 05:30 History benzonatate 100 mg capsule 200 mg (2 x 100 mg) PO TID PRN PRN 08/14/22 Unknown Rx Cough #20 CAPSULES atorvastatin 80 mg tablet 80 mg PO QHS cholesterol 04/27/24 Unknown History icosapent ethyl 1 gram capsule 2 g PO BID triglycerides 04/27/24 Unknown History magnesium oxide 420 mg tablet 420 mg PO DAILY supplement 04/27/24 Unknown History semaglutide 1 mg/dose (4 mg/3 mL) 1 mg subcut QWEEK diabetic 11/27/24 11/20/24 History subcutaneous pen injector (Ozempic) Allergy/AdvReac Type Severity Reaction Status Date / Time empagliflozin Allergy Mild PT UNSURE Verified 04/26/24 20:06 OF REACTION glipizide Allergy Mild PT UNSURE Verified 04/26/24 20:06 OF REACTION trazodone Allergy Mild PT UNSURE Verified 04/26/24 20:06 OF REACTION Family History Mother Diabetes Surgical History History of ventral hernia repair History of esophagogastroduodenoscopy (EGD) History of cardiac catheterization History of coronary artery stent placement Hx of heart bypass surgery History of colostomy reversal History of colostomy Hx of CABG Social History Smoking Status: Former smoker alcohol intake: never ROS Eyes Eyes: Reports systems reviewed and no addt'l complaints, except as documented Cardiovascular Cardiovascular: Reports systems reviewed and no addt'l complaints, except as documented Respiratory/Chest Respiratory/Chest: Reports systems reviewed and no addt'l complaints, except as documented Gastrointestinal Gastrointestinal: Reports systems reviewed and no addt'l complaints, except as documented Physical Exam Const alert and oriented x3 HEENT normocephalic Eyes PERRL Neck full ROM and no JVD GI GI Narrative: Abdomen is soft. Minimal tenderness in the right upper quadrant of the abdomen. No rebound or guarding Lab / Micro Data 04/27/24 06:36 04/27/24 06:36 Labs: Laboratory Results - last 24 hr 04/26/24 20:40: WBC 15.5 H, RBC 5.12, Hgb 15.9, Hct 44.5, MCV 86.9, MCH 31.1, MCHC 35.7, RDW Std Deviation 42.7, RDW Coeff of Cornelio 13.4, Plt Count 251, MPV 10.3, Immature Gran % (Auto) 0.300, Neut % (Auto) 64.4, Lymph % (Auto) 24.4, [place] % (Auto) 8.4, Eos % (Auto) 2.0, Baso % (Auto) 0.5, Absolute Neuts (auto) 10.0 H, Absolute Lymphs (auto) 3.79, Nucleated RBC % 0, Sodium 137, Potassium 3.6, Chloride 102, Carbon Dioxide 26.0, Anion Gap 9, BUN 25 H, Creatinine 1.07, Estim Creat Clear Calc 88.33, Est GFR (MDRD) Af Amer 89, Est GFR (MDRD) Non-Af 73, BUN/Creatinine Ratio 23.4 H, Glucose 117 H, Calcium 9.2, Total Bilirubin 1.00, AST 23, ALT 31, Alkaline Phosphatase 77, Total Protein 7.1, Albumin 3.5, Globulin 3.6, Albumin/Globulin Ratio 1.0, Lipase 99 H 04/26/24 23:53: Urine Color Yellow, Urine Clarity Sl. Cloudy, Urine pH 6.0, Ur Specific [place] 1.020, Urine Protein 30 H, Urine Glucose (UA) Normal, Urine Ketones Negative, Urine Occult Blood Negative, Urine Nitrite Negative, Urine Bilirubin Negative, Urine Urobilinogen 1 H, Ur Leukocyte Esterase Negative, Urine RBC 0 SEEN, Urine WBC 0 SEEN, Ur Squamous Epith Cells 0-5 SEEN, Urine Bacteria 0 SEEN, Urine Mucus 0 SEEN 04/27/24 06:36: WBC 11.3 H, RBC 4.80, Hgb 14.5, Hct 42.4, MCV 88.3, MCH 30.2, MCHC 34.2, RDW Std Deviation 43.8, RDW Coeff of Cornelio 13.5, Plt Count 205, MPV 10.4, Sodium 138, Potassium 3.6, Chloride 104, Carbon Dioxide 27.0, Anion Gap 7, BUN 28 H, Creatinine 1.06, Estim Creat Clear Calc 84.69, Est GFR (MDRD) Af Amer 90, Est GFR (MDRD) Non-Af 74, BUN/Creatinine Ratio 26.4 H, Glucose 85, H emoglobin A1c 6.1 H, Calcium 8.6, Total Bilirubin 1.00, AST 20, ALT 23, Alkaline Phosphatase 75, Total Protein 6.2 L, Albumin 3.2, Globulin 3.0, Albumin/Globulin Ratio 1.1 04/27/24 06:42: POC Glucose 90 Imaging Radiology Impression Gallbladder Ultrasound 04/26/24 23:24 IMPRESSION: 1. Positive sonographic De La Torre''s sign however no evidence of gallstones, gallbladder wall thickening or pericholecystic fluid to suggest acute cholecystitis. 2. Fatty infiltration of the liver and hepatomegaly. Electronically Signed: Antione Schuster, at 0:17 EST , Abdomen/Pelvis CT 04/27/24 00:24 IMPRESSION: 1. No acute abnormality. 2. Fatty infiltration of the liver and hepatomegaly. Electronically Signed: Antione Schuster, DO at 1:17 EST , Hepatobiliary Scan Nuclear Medicine 04/27/24 02:25 IMPRESSION: 1. ABNORMAL 99m Tc Mebrofenin hepatobiliary imaging examination with Cholecystokinin. A. A gallbladder ejection fraction calculated to be less than 35% following the administration of Cholecystokinin is consistent with the presence of functional hepatobiliary disease (gallbladder and/or sphincter of Oddi dyskinesia) and/or organic hepatobiliary disease (chronic acalculous cholecystitis and/or cystic duct syndrome) in patients with intermediate to high pretest probabilities of hepatobiliary illness. (Marta Bowling et al, Journal of Nuclear Medicine 32:1695, 1991). Electronically Signed: Kings Borrego, at 9:30 EST , Charges/Coding Visit Charges Inpatient E&M: 89318 Init Hosp L3
[2024-04-27 10:43] LABS: Bedside Glucose 126 mg/dL (74-106)
--- NOTE | 2024-04-27 11:00 | IMM_PTH ---
PATIENT: KINGS CEBALLOS LOC: MS3 U#:[id number] AGE/SX: 69/M [place] [facility] [place]: Dr. Darrel Woodall DO : 1955 BED: 1 DIS: 04/28/2024 SPEC #: [id number] RECD: 04/27/24 14:13 STATUS: VERONICA REQ #: [id number] MONICA: 04/27/24 11:[address]: Clifford Alvares DEPT: IMMUNOHISTOCHEMISTRY RECD BY: Luca Zambrano ENTERED: 04/27/24 14:14 SP TYPE: IMMUNO OTHR DR: DO Dr. Justo Goins, [facility] Tissues: B - Gastric mucous membrane Procedures: H Pylori (initial) PHYSICIAN & INSTITUTION [place] [phone] SPECIMEN INFORMATION: Tissue Source: B- Antral biopsy Clinical Info: Abdominal pain Specimen Number: [id number] CPT code: 73490 METHODOLOGY: Deparaffinized sections of prefer/formalin-fixed tissue or PAP/DQ stained slides are incubated with monoclonal/polyclonal antibodies/oligonucleotide probes. Localization is made via biotin free immunoperoxidase method. Appropriate controls are performed and reacted as expected. Results on target cell population are indicated in the following table: RESULTS: ANTIBODY / CLONE RESULT Block B H Pylori (polyclonal) negative These tests were developed and their performance characteristics determined by [facility]. They may not have been cleared or approved by the U.S. Food and Drug Administration. The FDA has determined that such clearance or approval is not necessary. The above immunohistochemical/dualISH markers are ordered and reviewed by the Pathologist. INTERPRETATION: B. Gastric antrum, biopsy: Negative for Helicobacter pylori organisms. AM 04/29/2024
--- NOTE | 2024-04-27 11:33 | OP.CCLET_ITS ---
04/27/2024 [facility] Re : Upper GI endoscopy procedure for [facility] This procedure was performed on Saturday, April 27, 2024. My impressions and recommendations are as follows: Impressions : - Erythematous duodenopathy. Biopsied. - No gross lesions in the entire stomach. Biopsied. - No gross lesions in the entire esophagus. Biopsied. - The examination was otherwise normal. Recommendations : - [facility]. - Clear liquid diet. - Await pathology results. - Continue present medications. My findings are described in the full procedure note, which is enclosed. If I can be of further assistance, please feel free to contact me at . Sincerely, Clifford Alvares MD 04/27/2024 11:33:19 AM This report has been signed electronically.
--- NOTE | 2024-04-27 11:33 | OP.EGD_ITS ---
Patient Name: Clifford Boone Procedure Date: 04/27/2024 10:55 AM Date of : 1955 Age: 69 Procedure: Upper GI endoscopy Indications: Abdominal pain in the right upper quadrant Providers: Clifford Alvares MD Medicines: Monitored Anesthesia Care Patient Profile: Refer to note in patient chart for documentation of history and physical. Patient has symptoms of acute right upper quadrant abdominal pain. Complications: No immediate complications. Estimated blood loss: Minimal. Procedure: Pre-Anesthesia Assessment: - Prior to the procedure, a History and Physical was performed, and patient medications and allergies were reviewed. The patient's tolerance of previous anesthesia was also reviewed. The risks and benefits of the procedure and the sedation options and risks were discussed with the patient. All questions were answered, and informed consent was obtained. Prior Anticoagulants: The patient has taken no anticoagulant or antiplatelet agents. ASA Grade Assessment: II - A patient with mild systemic disease. After reviewing the risks and benefits, the patient was deemed in satisfactory condition to undergo the procedure. - Prior to the procedure, a History and Physical was performed, and patient medications and allergies were reviewed. The patient's tolerance of previous anesthesia was also reviewed. The risks and benefits of the procedure and the sedation options and risks were discussed with the patient. All questions were answered, and informed consent was obtained. [Anticoagulant Agents] [Days Prior to Procedure]. [ASA Grade]. After reviewing the risks and benefits, the patient was deemed in satisfactory condition to undergo the procedure. After obtaining informed consent, the endoscope was passed under direct vision. Throughout the procedure, the patient's blood pressure, pulse, and oxygen saturations were monitored continuously. The gastroscope was introduced through the mouth, and advanced to the second part of duodenum. The upper GI endoscopy was accomplished without difficulty. The patient tolerated the procedure well. Moderate Sedation: See the other procedure note for documentation of moderate sedation with intraservice time. Scope In: 11:11:41 AM Scope Out: 11:23:13 AM Total Procedure Duration Time 0 hours 11 minutes 32 seconds Findings: Diffuse moderately erythematous mucosa without active bleeding and with no stigmata of bleeding was found in the duodenal bulb. This was biopsied with a cold forceps for histology. Verification of patient identification for the specimen was done by the nurse using the patient's name, date and medical record number. Estimated blood loss was minimal. No gross lesions were noted in the entire examined stomach. Biopsies were taken with a cold forceps for Helicobacter pylori testing. Verification of patient identification for the specimen was done by the nurse using the patient's name, date and medical record number. Estimated blood loss was minimal. No gross lesions were noted in the entire esophagus. Biopsies were taken of GE junction with a cold forceps for histology to evaluate for Andrae's . Verification of patient identification for the specimen was done by the nurse using the patient's name, date and medical record number. Estimated blood loss was minimal. Estimated blood loss was minimal. The exam was otherwise without abnormality. Impression: - Erythematous duodenopathy. Biopsied. - No gross lesions in the entire stomach. Biopsied. - No gross lesions in the entire esophagus. Biopsied. - The examination was otherwise normal. Recommendation: - [facility]. - Clear liquid diet. - Await pathology results. - Continue present medications. Procedure Code(s): --- Professional --- 19544, Esophagogastroduodenoscopy, flexible, transoral; with biopsy, single or multiple Diagnosis Code(s): --- Professional --- R10.11, Right upper quadrant pain K31.89, Other diseases of stomach and duodenum CPT copyright 2021 [employer]. All rights reserved. The codes documented in this report are preliminary and upon oyster buyer review may be revised to meet current compliance requirements. Clifford Alvares MD 04/27/2024 11:33:19 AM This report has been signed electronically. Number of Addenda: 0 Note Initiated On: 04/27/2024 10:55 AM
--- NOTE | 2024-04-27 11:35 | PCM.POST.ANE ---
Anesthesia: Postop Eval I Current Vital Signs Temperature: 97 F Pulse Rate: 86 Blood Pressure: 119/63 Respiratory Rate: 18 Pulse Ox: 93 Oxygen Delivery Method: Room Air Assessment Airway patent: Yes Spontaneous unlabored respirations: Yes Mental status: Asleep nausea: No Vomiting: No Anesthesia Complication: No Fluid Hydration Crystalloid volume administer (ml): 30 Total IV fluid infused: 30 Progress Note Anesthesia document: Postop Eval 1 completed: Yes
--- NOTE | 2024-04-27 12:35 | CASEMGMT ---
HIRO WINSLOW Assessment: Face to Face with pt for initial transition planning/care coordination assessment. HIRO WINSLOW introduced self and role at [facility], pt voices understanding and consents to assessment. Pt is A&O x4 and answers all questions appropriately at this time. Pt sitting up in bed in no distress with at bedside. Care providers, pharmacy, and demographics verified/updated. Admitting Dx: RUQ Pain Strata Score: 2 PCP:Latosha Schilling [place] Specialists:Conche Operator in [place], pt cannot recall name Preferred Pharmacy: [facility] [place] [place], [facility]: yes LNOK: Lyssa Boone, Living Arrangements: Pt lives with in a single story home with 3 steps to enter. Pt reports he is I in ADLs and denies concerns at home. Transportation: Pt drives self and denies concerns with transportation. DME:CPAP- doesn't use, BGM with sufficient strips and lancets, nebulizer, cane, shower chair HHC/SNF: Denies hx of Pt states no concerns with going home at time of dc. Pt is currently seeing a ediscovery project manager routinely for care for his toe ulcer. Pt states this is almost healed and he does not do dressing changes at home. Pt states no further concerns/needs. CM to follow. Advised pt to ask CM if any further question/concerns/needs arise, voices understanding. Pt Goal: Home Plan: Home Isaias BOSCH CM
--- NOTE | 2024-04-27 12:40 | PCM.POSTANE2 ---
Anesthesia Postop Eval I Sum Postop Eval Completion status Anesthesia document: Postop Eval 1 completed: Yes Anesthesia Postop Eval I Summary Anesthesia Postop Eval I Summary: Anesthesia Postop Eval I: Assessment Summary Airway patent Yes 04/27/24 11:36 [email or web address] Spontaneous unlabored Yes 04/27/24 11:36 [email or web address] respirations Mental status Asleep 04/27/24 11:36 [email or web address] nausea No 04/27/24 11:36 [email or web address] Vomiting No 04/27/24 11:36 [email or web address] Anesthesia Postop Eval I: Fluid Summary Crystalloid volume administer 30 04/27/24 11:36 [email or web address] (ml) Colloids volume administered ( ml) Blood Product volume administered (ml) Total IV fluid infused 30 04/27/24 11:36 [email or web address] Anesthesia Postop Eval I: Summary Notes Anesthesia Complication No 04/27/24 11:36 [email or web address] Anesthesia Complication Comment: Post-operative progress note Anesthesia: Postop Eval II Evaluation Mental status: Awake Pain Level: 0 nausea: No Vomiting: No
[2024-04-27] MEDS: Insulin Lispro 100 UNIT/ML INSULN.PEN SC ×2 (16:10→20:42)
[2024-04-27] MEDS: Carvedilol 3.125 MG TABLET PO (16:12)
[2024-04-27 16:30] LABS: Bedside Glucose 267 mg/dL (74-106)
--- NOTE | 2024-04-27 16:58 | PCM.HOSP.N ---
Hospitalist Note Patient was seen and examined briefly today, had general surgery performed an EGD on the patient to rule out any pathology such as peptic ulcer disease, patient did have duodenitis, no active bleeding was seen, he was placed on IV Protonix and a prescription for Protonix 40 mg once a day was phoned in to [facility] for the patient today. If the patient is medically stable on 04/28/2024, he can be discharged home. Patient had an abnormal HIDA scan and will need follow-up with general surgery as an outpatient.
[2024-04-27] MEDS: Gabapentin 300 MG Capsule PO (20:35)
[2024-04-27] MEDS: Pantoprazole Sodium 40 MG in 0.9% Normal Saline (100mL MB+) 100 ML 330 MG IV (20:35)
[2024-04-27] MEDS: 0.9% Saline Lock 10 ML Syringe IV (20:42)
[2024-04-27 21:05] LABS: Bedside Glucose 237 mg/dL (74-106)
[2024-04-28 05:00] VITALS: BP 148/95; PULSE 108; RESP 16; TEMP 36.2; O2SAT 97
[2024-04-28] MEDS: Insulin Lispro 100 UNIT/ML INSULN.PEN SC (06:40)
[2024-04-28 07:02] LABS: Bedside Glucose 165 mg/dL (74-106)
--- NOTE | 2024-04-28 08:01 | PCM.PN.SRG ---
Subjective Subjective Patient reports no abdominal pain this morning Objective Data Objective Data Vital Signs: Vital Signs Temp Pulse Resp BP Pulse Ox O2 Del Method 97.2 F L 108 H 16 148/95 H 97 Room Air 04/28/24 05:00 04/28/24 05:00 04/28/24 05:00 04/28/24 05:00 04/28/24 05:00 04/28/24 07:27 Oxygen Delivery Method Room Air Weight: 238 lb 15.697 oz Body Mass Index (BMI) 33.3 Intake & Output: Intake and Output for Last 24 Hours 04/26/24 04/27/24 04/28/24 23:59 23:59 23:59 Intake Total 710 / 710 200 / 200 Balance 710 / 710 200 / 200 Lab / Micro Data 04/27/24 06:36 04/27/24 06:36 Labs: Laboratory Results - last 24 hr 04/27/24 06:36: Sodium 138, Potassium 3.6, Chloride 104, Carbon Dioxide 27.0, Anion Gap 7, BUN 28 H, Creatinine 1.06, Estim Creat Clear Calc 84.69, Est GFR (MDRD) Af Amer 90, Est GFR (MDRD) Non-Af 74, BUN/Creatinine Ratio 26.4 H, Glucose 85, Hemoglobin A1c 6.1 H, Calcium 8.6, Total Bilirubin 1.00, AST 20, ALT 23, Alkaline Phosphatase 75, Total Protein 6.2 L, Albumin 3.2, Globulin 3.0, Albumin/Globulin Ratio 1.1 04/27/24 10:26: POC Glucose 126 H 04/27/24 16:07: POC Glucose 267 H 04/27/24 20:41: POC Glucose 237 H 04/28/24 06:39: POC Glucose 165 H Radiography Diagnostic Testing: Radiology Impression Hepatobiliary Scan Nuclear Medicine 04/27/24 02:25 IMPRESSION: 1. ABNORMAL 99m Tc Mebrofenin hepatobiliary imaging examination with Cholecystokinin. A. A gallbladder ejection fraction calculated to be less than 35% following the administration of Cholecystokinin is consistent with the presence of functional hepatobiliary disease (gallbladder and/or sphincter of Oddi dyskinesia) and/or organic hepatobiliary disease (chronic acalculous cholecystitis and/or cystic duct syndrome) in patients with intermediate to high pretest probabilities of hepatobiliary illness. (Marta Talbot al, Journal of Nuclear Medicine 32:1695, 1991). Electronically Signed: Clifford ElmoDO at 9:30 EST , Physical Exam Const oriented x3 and no apparent distress GI normal to inspection, nondistended, normoactive bowel sounds Assessment & Plan Assessment/Plan (1) Duodenitis: PLAN: Patient had duodenitis found on EGD. He was started on a PPI. He will be discharged home on a PPI. Follow-up with Dr. Alvares. Florentin Flores MD Pager: [facility] [address] [place] [address], [address] [place] [phone] Office:
[2024-04-28 08:17] VITALS: BP 163/99; PULSE 103; RESP 18; TEMP 36.7; O2SAT 93
[2024-04-28] MEDS: Aspirin 81 MG TAB.CHEW PO (08:20)
[2024-04-28] MEDS: Carvedilol 3.125 MG TABLET PO (08:20)
[2024-04-28 08:22] VITALS: PULSE 104
--- NOTE | 2024-04-28 09:51 | PCM.DC.SUM ---
Providers Date of Admission: 04/27/24 Primary Care Physician: [facility] Consultations 04/27/24 07:42 Consult: General Surgery Routine Consulting Provider: Clifford Alvares Reason for Consult: abdominal pain EMERGENT Consult: No MD Notified: Yes Date Notified: 04/27/24 Time Notified: 07:43 Method of Notification: Verbal Reason For Visit: RUQ PAIN Diagnosis Discharge Diagnosis (1) Duodenitis: Status: Acute Code(s): K29.80 - Duodenitis without bleeding Medications at Discharge Home Medications albuterol sulfate 90 mcg/actuation aerosol inhaler (ProAir HFA) 1 puff inhalation BID PRN Sob &/Or Wheezing 10/28/14 insulin glargine 100 unit/mL (3 mL) subcutaneous pen (Lantus Solostar U-100 Insulin) 40 unit subcut DAILY diabetes 10/28/14 lisinopril 5 mg tablet 40 mg PO DAILY blood pressure 10/28/14 metformin 1,000 mg tablet 1,000 mg PO BIDCM diabetes 10/28/14 aspirin 81 mg tablet 81 mg PO DAILY heart health 11/12/20 cholecalciferol (vitamin D3) 50 mcg (2,000 unit) capsule (Vitamin D3) 50 mcg PO DAILY supplement 11/12/20 gabapentin 300 mg tablet 300 mg PO TID neuropathy 11/12/20 sildenafil 25 mg tablet (Viagra) 25 mg PO DAILY PRN PRN 12/27/20 carvedilol 6.25 mg tablet 3.125 mg PO BID blood pressure 01/13/22 benzonatate 100 mg capsule 200 mg (2 x 100 mg) PO TID PRN PRN Cough #20 CAPSULES 08/14/22 atorvastatin 80 mg tablet 80 mg PO QHS cholesterol 04/27/24 icosapent ethyl 1 gram capsule 2 g PO BID triglycerides 04/27/24 magnesium oxide 420 mg tablet 420 mg PO DAILY supplement 04/27/24 semaglutide 1 mg/dose (4 mg/3 mL) subcutaneous pen injector (Ozempic) 1 mg subcut QWEEK diabetic 04/27/24 pantoprazole 20 mg tablet,delayed release 20 mg PO DAILY #30 tabs 04/28/24 Hospital Course Operations None Procedures EGD Summary of Care Provided Hospital Course: Patient presents with right upper quadrant pain. Initial concern was for his gallbladder did have an abnormal HIDA scan but his EGD showed duodenitis. Patient was started on pantoprazole and is feeling better at this time. Patient will follow-up with general surgery particular for the abnormal HIDA scan to see if he would need to have any intervention in regards to his gallbladder. Patient will be discharged with Protonix. Weight / BMI Weight Weight: 108.4 kg Body Mass Index (BMI) 33.3 ABG / Lab / Microbiology Data 04/27/24 06:36 04/27/24 06:36 Laboratory: Laboratory Results - last 24 hr 04/27/24 06:36: Hemoglobin A1c 6.1 H 04/27/24 10:26: POC Glucose 126 H 04/27/24 16:07: POC Glucose 267 H 04/27/24 20:41: POC Glucose 237 H 04/28/24 06:39: POC Glucose 165 H D/C Instructions Discharge Diet: 2000 Calorie Control Diet DC O2, CPAP, BIPAP Needs Additional Home O2 Discharge instructions: No DC home with Oxygen: No Meaningful Use Info Meaningful Use Meaningful Use Diagnoses (Choose all that apply): None applicable Ischemic Stroke Statin Dosing Therapy Reference: STATIN DOSE THERAPY REFERENCE: * Patients > 75 years receive moderate or high dose statin therapy. * Patients 75 years or YOUNGER should receive HIGH intensity statin dose unless contraindicated. You will be required to document reason for non-treatment if statin daily dose does not meet guidelines. HIGH DOSE STATIN THERAPY DAILY Atorvastatin > than or = to 40 mg Rosuvastatin > than or = to 20 mg Amlodipine + Atorvastatin > than or = to 2.5/40 mg Ezetimibe + Simvastatin 10/80 mg Simvastatin 80mg Discharge Plan Admission Admit Date/Time: 04/27/24 02:20 Primary Reason for Your Visit: duodenitis Attending Provider: Darrel Woodall Primary Care Provider: [facility],[place] Consulting Providers: Primitivo Franks; Clifford Alvares; Justo Serna Discharge Orders/Prescriptions Prescriptions: New pantoprazole 20 mg Tablet,Delayed Release (Dr/Ec) 20 mg PO DAILY Qty: 30 0RF Continued sildenafil [Viagra] 25 mg tablet 25 mg PO DAILY PRN (Reason: PRN) Rx Instructions: administer 30 minutes to 4 hours before activity lisinopril 5 MG tablet 40 mg PO DAILY albuterol sulfate [ProAir HFA] 1 PUFF inhaler 1 puff inhalation BID PRN (Reason: Sob &/Or Wheezing) insulin glargine [Lantus Solostar U-100 Insulin] 100 UNITS/ML insulin pen 40 unit subcut DAILY aspirin 81 mg Tablet 81 mg PO DAILY Patient Comments: STOP 5 DAYS PRIOR gabapentin 300 mg Tablet 300 mg PO TID cholecalciferol (vitamin D3) [Vitamin D3] 50 mcg (2,000 unit) Capsule 50 mcg PO DAILY carvedilol 6.25 mg tablet 3.125 mg PO BID benzonatate 100 mg capsule 200 mg PO TID PRN PRN (Reason: Cough) Qty: 20 0RF Ozempic 1 mg/dose (4 mg/3 mL) pen injector 1 mg subcut QWEEK magnesium oxide 420 mg tablet 420 mg PO DAILY atorvastatin 80 mg tablet 80 mg PO QHS icosapent ethyl 1 gram capsule 2 g PO BID Rx Instructions: take with meals Held metformin 1,000 MG tablet 1,000 mg PO BIDCM Hold Instructions: Resume on 05/02/24. Referrals / Follow Up: Clifford Alvares MD [Med Staff - Active Staff] - Within 1 Month [facility] [Primary [facility] Provider] - Within 2 Weeks Disposition Disposition (needs filled in before D/C Order can be placed): Home, Self Care Charges/Coding Visit Charges Inpatient E&M: 26500 Disch Hosp
[2024-04-28 10:29] VITALS: BP 153/98; PULSE 100; RESP 18; TEMP 36.6; O2SAT 94
== END 2024-04-28 10:28 | disposition home or self-care (01) | DRG 392 ==
LOC: ED 04-27 02:10 → MS3 04-27 02:37
PROVIDERS: Anesthesiology; Internal Medicine; Surgery; Admitting Provider Hospitalist; Emergency Provider Emergency Medicine
PROC: 0DJ08ZZ Inspection of Upper Intestinal Tract, Via Natural or Artificial Opening Endoscopic (ICD-10-PCS; CPT 43235; principal; 2024-04-27 10:55)
DX: K29.80 Duodenitis without bleeding (principal); K26.9 Duodenal ulcer, unspecified as acute or chronic, without hemorrhage or perforation; E11.40 Type 2 diabetes mellitus with diabetic neuropathy, unspecified; E66.9 Obesity, unspecified; D72.829 Elevated white blood cell count, unspecified; J44.9 Chronic obstructive pulmonary disease, unspecified; I10 Essential (primary) hypertension; K76.0 Fatty (change of) liver, not elsewhere classified; K22.70 Barrett's esophagus without dysplasia; K29.50 Unspecified chronic gastritis without bleeding; K21.9 Gastro-esophageal reflux disease without esophagitis; G47.30 Sleep apnea, unspecified; I25.2 Old myocardial infarction; I25.10 Atherosclerotic heart disease of native coronary artery without angina pectoris; Z79.4 Long term (current) use of insulin; R74.8 Abnormal levels of other serum enzymes; Z95.1 Presence of aortocoronary bypass graft; Z87.19 Personal history of other diseases of the digestive system; Z79.82 Long term (current) use of aspirin; Z79.84 Long term (current) use of oral hypoglycemic drugs; Z79.51 Long term (current) use of inhaled steroids; Z79.899 Other long term (current) drug therapy; Z87.891 Personal history of nicotine dependence; Z68.33 Body mass index [BMI] 33.0-33.9, adult
CPT/HCPCS: 36415; 74177; 76705; 78227; 80053; 81001; 82962; 83036; 83690; 85025; 85027; 88305; 88312; 88342; 93005; 94640; 94668; 99284; A9537; Q9967; A4216; J2405; J2805

== ENCOUNTER 2024-05-26 13:32 | Emergency (ER) | payer OTHER, SELFPAY ==
[2024-05-26] VITALS (10 sets, daily range): BP systolic 120–131; BP diastolic 68–103; PULSE 65–94; RESP 15–22; TEMP 36.7–36.9; O2SAT 90–99; BMI 35.5
--- NOTE | 2024-05-26 15:14 | EKG12_ITS ---
Test Reason : Blood Pressure : */* mmHG Vent. Rate : 68 BPM Atrial Rate : 68 BPM P-R Int : 192 ms QRS Dur : 96 ms QT Int : 384 ms P-R-T Axes : 56 -50 86 degrees QTcB Int : 408 ms Sinus rhythm with Premature atrial complexes Left axis deviation Inferior infarct , age undetermined Anterolateral infarct , age undetermined Abnormal ECG Confirmed by TIO GAMBOA, BRETT ([id number]), order editor JADE BARRIENTOS ([id number]) on 05/27/2024 9:44:24 AM Referred By: EMMIE Confirmed By: BRETT KINSEY MD
--- NOTE | 2024-05-26 15:16 | EDS_ITS ---
HPI History of Present Illness Chief Complaint: Cough Informant: patient and spouse/S.O. Narrative Narrative: 59-year-old male has been having cough, headache, fever subjectively, generalized weakness/malaise, shortness of breath along with some occasional chest tightness for the past 2 or 3 days. No known sick contacts. Has a history of COPD no home oxygen. Has had some mild improvement with nebulizer treatments at home. A month ago he was in the hospital for possible gallbladder issues, diagnosed with duodenitis, had an abnormal HIDA scan and advised to follow-up with surgery which has yet to occur, and he states he started having some right-sided abdominal discomfort that is similar in the past 2 or 3 days along with some nausea and decreased appetite, he states not nearly to the degree that it was when he was in the hospital. He did not notice any worsening or improvement with meals in the last couple days. History from the patient is very limited, he does not provide definitive answers to questions, most of the questions about how or what or when he is feeling are answered by his significant other. [facility] Medical History History of ventral hernia Wears glasses History of steroid therapy Insulin dependent diabetes mellitus Ambulates with cane High cholesterol Back pain Gastric reflux Former smoker Shortness of breath on exertion Leg cramps History of edema Cardiology follow-up encounter Ventral incisional hernia History of colitis CPAP (continuous positive airway pressure) dependence Sleep apnea Myocardial infarct Diabetes COPD (chronic obstructive pulmonary disease) Asthma Coronary artery disease Hypertension Home Medications ?Medication ?Instructions ?Recorded ?Last Taken ?Type albuterol sulfate 90 mcg/actuation 1 puff inhalation BID PRN Sob &/Or 10/28/14 02/21/22 05:30 History aerosol inhaler (ProAir HFA) Wheezing insulin glargine 100 unit/mL (3 40 unit subcut DAILY diabetes 10/28/14 11/12/20 History mL) subcutaneous pen (Lantus Solostar U-100 Insulin) lisinopril 5 mg tablet 40 mg PO DAILY blood pressure 10/28/14 02/21/22 05:30 History metformin 1,000 mg tablet 1,000 mg PO BIDCM diabetes 10/28/14 11/12/20 History aspirin 81 mg tablet 81 mg PO DAILY heart health 11/12/20 02/15/22 History cholecalciferol (vitamin D3) 50 50 mcg PO DAILY supplement 11/12/20 11/12/20 History mcg (2,000 unit) capsule (Vitamin D3) gabapentin 300 mg tablet 300 mg PO TID neuropathy 11/12/20 01/14/21 History sildenafil 25 mg tablet (Viagra) 25 mg PO DAILY PRN PRN 12/27/20 Unknown History carvedilol 6.25 mg tablet 3.125 mg PO BID blood pressure 01/13/22 02/21/22 05:30 History benzonatate 100 mg capsule 200 mg (2 x 100 mg) PO TID PRN PRN 08/14/22 Unknown Rx Cough #20 CAPSULES atorvastatin 80 mg tablet 80 mg PO QHS cholesterol 04/27/24 Unknown History icosapent ethyl 1 gram capsule 2 g PO BID triglycerides 04/27/24 Unknown History magnesium oxide 420 mg tablet 420 mg PO DAILY supplement 04/27/24 Unknown History semaglutide 1 mg/dose (4 mg/3 mL) 1 mg subcut QWEEK diabetic 04/27/24 04/20/24 History subcutaneous pen injector (Ozempic) pantoprazole 20 mg tablet,delayed 20 mg PO DAILY #30 tabs 04/28/24 Unknown Rx release azithromycin 250 mg tablet See Rx Instructions PO .COMPLEX #6 05/26/24 Unknown Rx tabs dexamethasone 6 mg tablet 6 mg PO DAILY #7 tabs 05/26/24 Unknown Rx Allergy/AdvReac Type Severity Reaction Status Date / Time empagliflozin Allergy Mild PT UNSURE Verified 05/26/24 13:32 OF REACTION glipizide Allergy Mild PT UNSURE Verified 05/26/24 13:32 OF REACTION trazodone Allergy Mild PT UNSURE Verified 05/26/24 13:32 OF REACTION Family History Mother Diabetes Surgical History History of ventral hernia repair History of esophagogastroduodenoscopy (EGD) History of cardiac catheterization History of coronary artery stent placement Hx of heart bypass surgery History of colostomy reversal History of colostomy Hx of CABG Social History Smoking Status: Former smoker alcohol intake: never ROS ROS ED Constitutional Constitutional ED: Reports body ache(s), chills, fatigue, fever(s), headache(s) and malaise Eyes Eyes: Denies change in vision or diplopia ENT ENT ED: Reports rhinorrhea; Denies ear pain or sore throat Cardiovascular Cardiovascular: Denies chest pain, orthopnea or palpitations Respiratory/Chest Respiratory/Chest: Reports chest congestion, chest tightness, cough, dyspnea, dyspnea on exertion and sputum; Denies orthopnea Gastrointestinal Gastrointestinal: Reports abdominal pain, diarrhea and nausea; Denies melena or vomiting Genitourinary Genitourinary ED: Denies dysuria or hematuria Musculoskeletal Musculoskeletal: Denies back pain or neck pain Integumentary Denies abscess or rash Neurologic Neurologic: Reports headache(s); Denies paresthesias or weakness Psychiatric Psychiatric: Denies anxiety or suicidal thoughts EXAM Physical Exam Const Vital Signs: 05/26/24 13:32 05/26/24 14:42 05/26/24 15:19 Temperature 98.1 F Temperature Source Oral Pulse Rate 65 Respiratory Rate 20 H Respiratory Effort Short of Breath Respiratory Depth Shallow Respiratory Pattern Tachypnea Blood Pressure 128/75 H Blood Pressure Mean 92 Pulse Ox 95 93 Oxygen Delivery Method Room Air Room Air 05/26/24 15:30 05/26/24 15:32 05/26/24 16:04 Temperature Temperature Source Pulse Rate 67 70 72 Respiratory Rate 20 H 15 20 H Respiratory Effort Respiratory Depth Respiratory Pattern Normal Normal Blood Pressure 120/68 Blood Pressure Mean 85 Pulse Ox 95 Oxygen Delivery Method Room Air 05/26/24 16:31 05/26/24 17:00 Temperature Temperature Source Pulse Rate 88 92 Respiratory Rate 22 H 22 H Respiratory Effort Respiratory Depth Respiratory Pattern Tachypnea Blood Pressure 131/103 H Blood Pressure Mean 112 Pulse Ox 91 Oxygen Delivery Method Room Air Positive well nourished and well developed Constitutional Narrative: Malaised-appearing, no distress General Appearance ED: well developed and NAD HEENT Reports moist mucous membranes normocephalic and atraumatic Eyes PERRL and EOMs intact bilaterally Neck full ROM, no lymphadenopathy, supple and no meningeal signs Resp normal respiratory effort Auscultation: rales diffuse (vs. upper airway congestion transmitted sounds) and wheezes expiratory wheezes and throughout Cardio regular rate and regular rhythm Rate: Negative for tachycardic GI non-distended GI Narrative: Mild diffuse right-sided tenderness negative De La Torre's, no guarding or rebound tenderness. Auscultation: normoactive bowel sounds Palpation: soft Back/Spine no CVA tenderness General Back: other FROM Extremity normal to inspection and no calf tenderness General Extremety ED: Yes edema; Negative for pulses abnormal or tenderness General Extremity: edema bilateral lower extremity Details: moderate (With signs of chronic stasis dermatitis, unchanged according to patient and family); Negative for pulses abnormal Neuro oriented x3, CN's II-XII intact bilaterally and no sensory deficits noted Sensorium / Orientation: awake and alert Motor Exam: general weakness Psych mental status grossly normal Skin no rashes or lesions noted and no wounds MDM MDM MDM Narrative Medical decision making narrative: Broad differential here including pneumonia, COVID, influenza, other viral etiologies along with COPD exacerbation, so starting with nebulizers, Solu- Medrol, in addition to Zofran. Will also obtain liver enzymes and a lipase to evaluate for the possibility of cholangitis which she did not have while he was admitted to the hospital a month ago after obtaining multiple tests and surgical consultation. He is not striking he has acute cholecystitis at this time. His vital signs are normal and his pulse ox is 95% on room air. His COVID test is positive. His two-view x-ray on my interpretation shows a minor patchy left lower lobe pneumonia that radiology is in agreement with. He has a mild nonspecific leukocytosis of 12.2. In context of COVID, this could be demargination from his COPD exacerbation or bacterial superinfection. Other than a minor bilirubin elevation of 1.3 the rest of his liver enzymes are unremarkable, and exam is inconsistent with acute cholecystitis so I do not think he needs repeat emergent imaging of his abdomen. He was ambulatory and doing okay staying in the low 90s, so I do not think he is to be admitted for this at this time. Comfortable at home, will prescribe him azithromycin in case of bacterial superinfection, Decadron. Given his COPD, I think he qualifies for Decadron being below 94%, but I do not want to put him on supplemental O2 since it could make him more more lethargic and hypercarbic. History & Record Review Additional record(s) reviewed:: Prior inpatient record and Prior ED visit Lab Data Attestation: I reviewed the patient's lab results. Labs: Laboratory Results - last 24 hr 12/26/24 15:30 WBC 12.2 H RBC 5.22 Hgb 16.1 Hct 45.9 MCV 87.9 MCH 30.8 MCHC 35.1 RDW Std Deviation 44.0 H RDW Coeff of Cornelio 13.7 Plt Count 177 MPV 10.1 Immature Gran % (Auto) 0.500 Neut % (Auto) 74.3 H Lymph % (Auto) 14.7 L [place] % (Auto) 9.4 Eos % (Auto) 0.6 Baso % (Auto) 0.5 Absolute Neuts (auto) 9.0 H Absolute Lymphs (auto) 1.79 Nucleated RBC % 0 Sodium 136 Potassium 3.5 Chloride 99 Carbon Dioxide 29.0 Anion Gap 8 BUN 19 H Creatinine 1.10 Estim Creat Clear Calc 84.29 Est GFR (MDRD) Af Amer 86 Est GFR (MDRD) Non-Af 71 BUN/Creatinine Ratio 17.3 Glucose 99 Calcium 9.2 Total Bilirubin 1.30 H AST 25 ALT 26 Alkaline Phosphatase 83 Troponin I High Sens 10 Total Protein 7.4 Albumin 3.2 Globulin 4.2 Albumin/Globulin Ratio 0.8 L Lipase 17 Radiography Diagnostic Testing: Clinical Impression(s) from Imaging Studies Chest X-Ray 05/26/24 15:45 IMPRESSION: Left lower lobe pneumonia. Electronically Signed: Home Kim MD at 16:14 EST , Rhythm Strip Rhythm Strip: Sinus Rhythm Rate: 70 Ectopy: PAC(s) EKG Initial EKG: Attestation: I personally reviewed and interpreted this EKG as follows: Interpretation: Sinus Rhythm and LAFB Comments: poor R wave progression; nml intervals Prior EKG tracings: available for review Prior: Unchanged Discharge Plan Triage Chief Complaint: Cough ED Provider: Saeid Hart Dx/Rx/DC Orders Clinical Impression: COPD exacerbation, COVID-19, Pneumonia, Acute upper abdominal pain Instructions: Coronavirus Disease 2019 (COVID-19): Caring for Yourself or Others, ED COPD Flare Prescriptions: New dexamethasone 6 mg tablet 6 mg PO DAILY Qty: 7 0RF azithromycin 250 mg tablet See Rx Instructions .ROUTE .COMPLEX Qty: 6 0RF Rx Instructions: For 250 mg dose pack: take 500 mg today (day 1), then 250 mg for 4 days (days 2-5) No Action sildenafil [Viagra] 25 mg tablet 25 mg PO DAILY PRN (Reason: PRN) Rx Instructions: administer 30 minutes to 4 hours before activity metformin 1,000 MG tablet 1,000 mg PO BIDCM lisinopril 5 MG tablet 40 mg PO DAILY albuterol sulfate [ProAir HFA] 1 PUFF inhaler 1 puff inhalation BID PRN (Reason: Sob &/Or Wheezing) insulin glargine [Lantus Solostar U-100 Insulin] 100 UNITS/ML insulin pen 40 unit subcut DAILY aspirin 81 mg Tablet 81 mg PO DAILY Patient Comments: STOP 5 DAYS PRIOR gabapentin 300 mg Tablet 300 mg PO TID cholecalciferol (vitamin D3) [Vitamin D3] 50 mcg (2,000 unit) Capsule 50 mcg PO DAILY carvedilol 6.25 mg tablet 3.125 mg PO BID benzonatate 100 mg capsule 200 mg PO TID PRN PRN (Reason: Cough) Qty: 20 0RF Ozempic 1 mg/dose (4 mg/3 mL) pen injector 1 mg subcut QWEEK magnesium oxide 420 mg tablet 420 mg PO DAILY atorvastatin 80 mg tablet 80 mg PO QHS icosapent ethyl 1 gram capsule 2 g PO BID Rx Instructions: take with meals pantoprazole 20 mg Tablet,Delayed Release (Dr/Ec) 20 mg PO DAILY Qty: 30 0RF [facility]] - 1 Week if not improving Activity Restrictions/Additional Instructions: Try to get a home portable pulse oximeter and closely watch your oxygen levels periodically. If you stay below 90% for more than a minute or so, and/or you are feeling like your breathing is getting worse, return to the emergency department for further evaluation. Currently, CDC recommendations state that you should stay home through day 5 of symptoms, then as long as symptoms are improving, if you need to go to work or somewhere else you may for days 6-10 as long as you are wearing a mask the entire time. If you are feeling better after day 10 you may resume life is normal. You may start the antibiotic whenever you get it, do not start the dexamethasone until 05/27. Print Language: Upper Sorbian Disposition Disposition: Home, Self Care
[2024-05-26] MEDS: Ipratropium/Albuterol Sulfate 3 ML AMPUL.NEB INHALATION (15:28)
[2024-05-26] MEDS: Albuterol 2.5 MG/3 ML VIAL.NEB. INHALATION ×3 (15:28→16:31)
[2024-05-26] MEDS: MethylPREDNISolone 125 MG/2 ML Vial IV (15:36)
[2024-05-26] MEDS: Ondansetron 4 MG/2 ML Vial IV (15:36)
[2024-05-26 15:44] LABS: Absolute Lymphocyte Count 1.79 X10^3/uL (0.83-4.51); Basophil# 0.06 X10^3/uL; Basophil% 0.5 % (0-1); Eosinophil# 0.07 X10^3/uL; Eosinophils% 0.6 % (0-5); Hematocrit 45.9 % (40-54); Hemoglobin 16.1 g/dL (13.0-16.5); Lymphocyte # 1.79 X10^3/ul (0.83-4.51); Lymphocyte % 14.7 % (19-41); Mean Corp Hgb Conc 35.1 g/dL (32-36); Mean Corpuscular Hgb 30.8 pg (27.0-32.0); Mean Corpuscular Volume 87.9 fL (80-94); Mean Platelet Vol. 10.1 fl (6.2-12.0); Monocyte# 1.14 X10^3/uL; Monocyte% 9.4 % (0-10); NRBC Flagged by Analyzer 0 % (0-5); Neutrophil # 9.03 X10^3/uL (2.7-7.7); Neutrophil % 74.3 % (47-70); Platelet Count 177 K/mm3 (150-450); RBC Distribution Width CV 13.7 % (11.6-14.6); Red Blood Count 5.22 M/mm3 (4.6-6.2); White Blood Count 12.2 K/mm3 (4.4-11.0)
--- NOTE | 2024-05-26 15:45 | RAD_ITS ---
INDICATION: cough chest tightness sob EXAMINATION/TECHNIQUE: X-RAY - XR Chest 2 Views COMPARISON: 08/14/2022. FINDINGS: Patchy opacities in the left lower lobe. Tortuous and calcified thoracic aorta. The heart is mildly enlarged. Sternotomy wires and intact. No pleural effusion or pneumothorax. Degenerative changes of the thoracic spine. RAD/Chest PA and Lateral IMPRESSION: Left lower lobe pneumonia. Electronically Signed: Home Kim MD at 16:14 EST ,
[2024-05-26 16:13] LABS: ALB/GLOB Ratio 0.8 RATIO (0.9-2.4); AST(SGOT) 25 U/L (15-37); Alanine Aminotransfer ALT/SGPT 26 U/L (16-61); Albumin, Serum 3.2 g/dL (3.2-5.0); Alkaline Phosphatase 83 U/L (45-117); Anion Gap 8 (5-15); BUN 19 mg/dL (7-18); BUN/Creat Ratio 17.3 RATIO (10-20); Calcium,Total 9.2 mg/dL (8.5-10.1); Chloride 99 mmol/L (98-107); EST Glomerular Filtration Rate 71 mL/min (>60); Est Glom Filt Rate - Afr Amer 86 mL/min (>60); Estimated Creatinine Clearance 84.29 ml/min; Globulin 4.2 g/dL (2.2-4.2); Glucose 99 mg/dL (74-106); Lipase 17 U/L (13-75); Potassium 3.5 mmol/L (3.5-5.1); Protein, Total 7.4 g/dL (6.4-8.2); Sodium Level 136 mmol/L (136-145); Troponin-I HS 10 pg/mL (3.0-78.0)
== END 2024-05-26 17:50 | disposition home or self-care (01) ==
PROVIDERS: Emergency Provider Emergency Medicine; Visit Provider Emergency Medicine
DX: U07.1 COVID-19 (principal); J44.0 Chronic obstructive pulmonary disease with (acute) lower respiratory infection; J44.1 Chronic obstructive pulmonary disease with (acute) exacerbation; E11.9 Type 2 diabetes mellitus without complications; Z79.4 Long term (current) use of insulin; R10.11 Right upper quadrant pain; J18.9 Pneumonia, unspecified organism; E78.00 Pure hypercholesterolemia, unspecified; I25.10 Atherosclerotic heart disease of native coronary artery without angina pectoris; K21.9 Gastro-esophageal reflux disease without esophagitis; I25.2 Old myocardial infarction; G47.30 Sleep apnea, unspecified; Z95.1 Presence of aortocoronary bypass graft; Z79.899 Other long term (current) drug therapy; Z79.82 Long term (current) use of aspirin; Z79.84 Long term (current) use of oral hypoglycemic drugs; Z87.19 Personal history of other diseases of the digestive system; Z87.891 Personal history of nicotine dependence
CPT/HCPCS: 71046; 80053; 83690; 84484; 85025; 87631; 93005; 94640; 96374; 96375; 99283; A4216; J2405